=== PATIENT | female | born 1950 | race Caucasian/White ===

== ENCOUNTER 2018-07-09 12:02 | Inpatient (IN) ==
[2018-07-09] MEDS ORDERED: ALBUTEROL NEB INH ONE (12:43)
[2018-07-09] MEDS ORDERED: SOLU-MEDROL IV ONE (12:44)
--- NOTE | 2018-07-09 12:49 | EKG Report ---
Test Performed on : 07/09/2018 12:21:09 PM Test Reason : sob Blood Pressure : / mmHG Vent. Rate : 107 BPM Atrial Rate : 107 BPM P-R Int : 158 ms QRS Dur : 086 ms QT Int : 372 ms P-R-T Axes : 075 059 046 degrees QTc Int : 496 ms Sinus tachycardia. Nonspecific ST abnormality Abnormal ECG When compared with ECG of 17-MAR-2018 10:53, premature ventricular complexes. are no longer present Unconfirmed Result
--- NOTE | 2018-07-09 12:52 | Diag Imaging Result Doc PS360 ---
EXAM: CHEST-1 VIEW 07/09/2018 HISTORY: fever, sputum TECHNIQUE: AP portable upright at 1243 COMMENT: There is slightly worsened lingular atelectasis compared to 03/19/2018. Otherwise there has been no significant change. IMPRESSION: Lingular atelectasis versus pneumonia. Electronically signed by Miller De Oliveira 07/09/2018 12:49 PM
[2018-07-09 13:22] LABS: BASO# 0.01 X1000 (0.0-0.2); BASO% 0.1 % (0.0-0.8); EOS# 0.32 X1000 (0.0-0.7); EOS% 2.3 % (0.0-10.0); HEMOGLOBIN 11.6 g/dL (12.0-16.0); IMM GRAN# 0.03 X1000 (0.0-0.04); IMM GRAN% 0.2 % (0.0-0.5); LYMPH# 1.26 X1000 (1.2-3.4); MCH 26.3 PG (27-31); MCHC 30.5 g/dL (33-37); MCV 86.2 FL (81-99); MONO# 1.34 X1000 (0.11-0.59); MONO% 9.6 % (1.7-9.3); MPV 11.1 FL (7.4-10.4); NEUT# 11.05 X1000 (1.4-6.5); NEUT% 78.8 % (42.2-75.2); PLT 215 X1000 (130-400); RBC 4.41 XMIL (4.2-5.4); RDW 15.4 % (11.5-14.5); WBC 14.01 X1000 (4.8-10.8)
[2018-07-09 13:33] LABS: AGAP 13; ALB/GLOB RATIO 1.4; ALBUMIN 3.7 g/dL (3.5-5.0); ALKALINE PHOSPHATASE 87 U/L (32-104); BUN 10 mg/dL (8-22); CALCIUM 9.1 mg/dL (8.8-10.2); CHLORIDE 96 mmol/L (98-107); COSMO 273; CREATININE 0.7 mg/dL (0.5-0.9); ESTIMATED GFR > 60; GLUCOSE 133 mg/dL (70-104); GOT 12 U/L (10-30); GPT 10 U/L (10-36); POTASSIUM 4.3 mmol/L (3.5-5.1); SODIUM 136 mmol/L (136-145); TCO2 27 mmol/L (25-35); TOTAL BILIRUBIN 0.43 mg/dL (0.20-1.00); TOTAL PROTEIN 6.4 g/dL (6.3-8.3)
[2018-07-09] MEDS ORDERED: ZITHROMAX PO ONE (15:46)
--- NOTE | 2018-07-09 15:51 | PROVIDER DOCUMENTATION ---
This chart was entered by Inocencio Hurst Scribe, acting as scribe for Chris Merino MD. HPI-Respiratory General - General Chief Complaint: Shortness of Breath Stated Complaint: SOB,COUGHING,CONGESTED,SNEEZING Time Seen by Provider: 07/09/18 12:32 Source: patient Allergies/Adverse Reactions: Patient Allergies Allergy/AdvReac Type Severity Reaction Status Date / Time amoxicillin [Amoxicillin] Allergy Severe CHEST Verified 03/17/18 12:14 PAIN, REDNESS, RASH Home Medications: Home Medication List Medication Instructions Recorded Confirmed Last Taken Type Lisinopril 20 mg PO DAILY 09/27/13 03/17/18 03/17/18 History Doxepin HCl 100 mg PO HS 04/02/16 03/17/18 03/17/18 History Citalopram [Celexa] 20 mg PO DAILY 04/19/17 03/17/18 03/17/18 History Insulin Degludec [Tresiba 200 units ORDERED ORDERED 04/19/17 03/17/18 03/17/18 History Flextouch U-200] Montelukast [Singulair] 10 mg PO DAILY 04/19/17 03/17/18 03/17/18 History ROSUVAstatin [Crestor] 20 mg PO DAILY 04/19/17 03/17/18 03/17/18 History Sitagliptin [Januvia] 100 mg PO DAILY 04/19/17 03/17/18 03/17/18 History Doxycycline 100 mg PO DAILY #14 tab 03/19/18 Unknown Rx Fluticasone/Salmeterol [Advair 1 ea IH BID #1 disk.w.dev 03/19/18 Unknown Rx 250-50 Diskus] Ipratropium/Albuterol INH 1 puff INH RTQ6H PRN #1 inhaler 03/19/18 Unknown Rx [Combivent Respimat Inhaler] Levofloxacin [Levaquin] 500 mg PO DAILY #7 tab 03/19/18 Unknown Rx Prednisone [Deltasone] 20 mg PO DAILY #7 tab 03/19/18 Unknown Rx Azithromycin 250 mg PO DAILY #4 tab 07/09/18 Unknown Rx Methylprednisolone [Medrol Dosepak] 4 mg PO DIRECTED #1 pkg 07/09/18 Unknown Rx - History of Present Illness-Resp Nature of Presenting Problem: Pt is a 89 y/o F presents to the ED with SOB. Pt reports increased labor of breathing that began 2 days ago. She denies fever. Severity in ED: reports: severe Onset/Duration: reports: 2 days ago Timing: reports: still present Cough Quality/Degree: reports: no cough Current Respiratory Medication Therapy: Initiated albuterol/atrovent inhale, Initiated A/A nebulizer Modifying Factors: improves with: nothing Associated Symptoms: reports: shortness of breath, wheezing. denies: cough, dizziness, fever/chills Similar Symptoms Previously?: No Recently seen or treated by another doctor?: No Review of Systems - Adult - REVIEW OF SYSTEMS - ADULT Constitutional: denies: chills, fever Eyes: reports: no symptoms reported Ears, Nose, Mouth & Throat: reports: no symptoms reported Cardiovascular: denies: chest pain, edema Respiratory: reports: shortness of breath, wheezing. denies: cough Gastrointestinal: denies: abdominal pain, nausea, vomiting Genitourinary: reports: no symptoms reported Musculoskeletal: denies: back pain, neck pain Integumentary: reports: no symptoms reported Neurological: reports: no symptoms reported Psychiatric: reports: no symptoms reported Endocrine: reports: no symptoms reported Hematologic/Lymphatic: reports: no symptoms reported Allergic/Immunologic: reports: no symptoms reported All Other Systems: Reviewed and Negative Past History - Adult - PAST MEDICAL HISTORY-ADULT Review of Records: reports: Old Records Reviewed, Nursing Assessment Review, Medications Reviewed Major Childhood Illnesses: reports: denies history Cardiovascular: reports: HTN Respiratory: reports: asthma, COPD, pneumonia (last PNA with admission was 5 years ago) Gastrointestinal: reports: denies history Obstetrical/Gynecological: reports: denies history Genitourinary: reports: denies history, kidney disease Musculoskeletal: reports: denies history Neurological: reports: denies history Psychiatric: reports: anxiety Endocrine/Immune: reports: denies history Other Conditions: reports: denies history - PRIOR SURGERIES/PROCEDURES Surgical/Procedure History: reports: appendectomy, hysterectomy, BTL, orthopedic (extremity) (R hand), other (bladder sling, breast) - IMMUNIZATION STATUS Childhood Immunizations: See Nurse Assessment Flu Vaccine: See Nurse Assessment - FAMILY HISTORY Family History: reviewed, not pertinent - SOCIAL HISTORY Smoking: non-smoker, quit greater than 1 year Living Situation: family Physical Exam-General - PHYSICAL EXAM-ADULT Initial Vital Signs Reviewed: Yes - CONSTITUTIONAL General Appearance: alert, no apparent distress, mild distress - EYES Eyes: PERRL/EOMI, pink conjunctivae - HEAD, EARS, NOSE, MOUTH & THROAT HENMT: moist mucous membranes, normal ENT inspection, pharynx normal - NECK Neck: non-tender, full range of motion, supple, normal inspection - RESPIRATORY Respiratory: lungs clear, no pleuratic chest pain, no respiratory distress, no accessory muscle use, wheezing (faint). negative: normal breath sounds (distant breath sounds) - CARDIOVASCULAR Cardiovascular: normal peripheral pulses, tachycardia - GASTROINTESTINAL (ABDOMEN) Abdominal Exam: normal bowel sounds, non tender, soft - MUSCULOSKELETAL Back Exam: normal inspection, no CVA tenderness, no vertebral tenderness Extremity: normal range of motion, normal gait, normal inspection - SKIN Integumentary: normal color, normal turgor, warm/dry - PSYCHIATRIC Psych/Mental Status: normal mood/affect, normal thought content, normal thought process, oriented x 3 Progress - PLAN OF CARE/RESULTS Progress/Plan/Lab Results: Vital Signs - 8 hr 07/09/18 12:17 07/09/18 12:30 07/09/18 13:10 Temperature 100.5 F H Pulse Rate 109 H 110 H 106 H Respiratory Rate 18 22 21 Blood Pressure 147/88 198/95 O2 Sat by Pulse Oximetry 89 L 95 92 L 07/09/18 13:20 07/09/18 13:25 07/09/18 13:30 Temperature Pulse Rate 105 H 106 H 104 H Respiratory Rate 22 14 21 Blood Pressure O2 Sat by Pulse Oximetry 94 L 94 L 96 07/09/18 12:45 Influenza Screen - Final Nasopharyngeal Laboratory Results - last 24 hr 07/09/18 07/09/18 12:46 12:46 WBC 14.01 H RBC 4.41 Hgb 11.6 L Hct 38.0 MCV 86.2 MCH 26.3 L MCHC 30.5 L RDW Std Deviation 15.4 H Plt Count 215 MPV 11.1 H Immature Gran % (Auto) 0.2 Neut % (Auto) 78.8 H Lymph % (Auto) 9.0 L Grimes % (Auto) 9.6 H Eos % (Auto) 2.3 Baso % (Auto) 0.1 Immature Gran # (Auto) 0.03 Neut # (Auto) 11.05 H Lymph # (Auto) 1.26 Grimes # (Auto) 1.34 H Eos # (Auto) 0.32 Baso # (Auto) 0.01 Sodium 136 Potassium 4.3 Chloride 96 L Carbon Dioxide 27 Anion Gap 13 BUN 10 Creatinine 0.7 Estimated GFR/1.73 m2 > 60 BUN/Creatinine Ratio 14 Glucose 133 H Calculated Osmolality 273 Calcium 9.1 Total Bilirubin 0.43 AST 12 ALT 10 Alkaline Phosphatase 87 Total Protein 6.4 Albumin 3.7 Globulin 2.7 Albumin/Globulin Ratio 1.4 Orders Category Date Time Status CHEST-1 VIEW [RAD] Stat Exams 07/09/18 12:33 Completed CBC WITH DIFF [HEME] Stat Lab 07/09/18 12:46 Completed COMPREHENSIVE METABOLIC PANEL [CHEM] Stat Lab 07/09/18 12:46 Completed INFLUENZA SCREEN A/B Stat Lab 07/09/18 12:45 Completed Albuterol [Albuterol Neb] Med 07/09/18 12:43 Discontinued 2.5 mg INH NOW ONE Azithromycin [Zithromax] Med 07/09/18 15:46 Once 500 mg PO NOW ONE Methylprednisolone Sod Succ [Solu-Medrol] Med 07/09/18 12:44 Discontinued 125 mg IV NOW ONE Aerosol Treatments Routine Oth 07/09/18 12:44 Completed Aerosol Treatments Stat Oth 07/09/18 12:44 Completed EKG [EKG] Stat Ther 07/09/18 12:19 Draft Result Diagrams: 07/09/18 12:46 07/09/18 12:46 - REASSESSMENT Reassessment #2 Time Reassessed: 15:46 Status: improving (pt reports feeling much better, declines offer of admission. I turned off her 02, and 25 min. later her 02 was stable (at rest) at 90-92%. She wants to go home: I will Rx Azith given fever and COPD, medrol margie; pt to fu with PCP or return as needed.) - EKG 1 Time of EKG reading by physician:: 12:21 EKG Read and Signed by:: Chris Merino EKG Interpretation (*Must complete 3 of following elements*): Abnormal Rate: 107 Rhythm: Sinus Tach Comments: Nonspecific ST abnormality - XRAY 1 XRAY Study: Chest Impression: Abnormal (EXAM: CHEST-1 VIEW 07/09/2018 HISTORY: fever, sputum TECHNIQUE: AP portable upright at 1243 COMMENT: There is slightly worsened lingular atelectasis compared to 03/19/2018. Otherwise there has been no significant change. IMPRESSION: Lingular atelectasis versus pneumonia. Electronically signed by Miller De Oliveira 07/09/2018 12:49 PM 07/09/18 1249), See EMR Report Comparison with other Films: changes noted (03/19/18) Departure - Departure Date of Disposition Decision: 07/09/18 Time of Disposition Decision: 15:49 DIAGNOSIS: Chronic obstructive pulmonary disease with hypoxia, Fever Disposition: HOME 01 Certified Medical Emergency: Emergent Condition: Stable Prescriptions: Azithromycin 250 mg PO DAILY #4 tab Methylprednisolone [Medrol Dosepak] 4 mg PO DIRECTED #1 pkg Referrals and Follow-Ups: Owen Garner DO [Primary Care Provider] - - Critical Care Note This patient required my direct & personal management of CC.: No Attestation - Physician/ RYDER Attestation The physician spent face to face time with patient:: Yes Advanced Practice Provider documentation review:: Supervising physician onsite and consulted in the evaluation and care of this patient. The physician did have a face to face encounter with the patient. This chart was documented by the indicated scribe, (Inocencio Hurst Scribe) and accurately reflects the services I performed and decisions made by me, Chris Caicedo MD, as attested by the provider's signature.
[2018-07-09] MEDS ORDERED: TYLENOL PO PRN ×2 (16:23→16:41)
[2018-07-09] MEDS ORDERED: DUONEB (A & A) INH PRN (16:25)
[2018-07-09] MEDS ORDERED: LABETALOL IV PRN (16:35)
[2018-07-09 16:55] LABS: ALLEN TEST NO; BE 2.6 mmoll (-3.0-3.0); BLOOD TYPE ARTERIAL; HCO3-(ACT) 26.9 mmoll (20.0-26.0); METHB 0.5 % (0.0-1.5); O2(CT) 16.2 mL/dL (15.0-23.0); O2HB 95.6 % (95.0-99.0); PCO2(98.6) 41 mmHg (35-45); PO2(98.6) 134 mmHg (60-100); SAMPLE BLOOD; SAO2 98.7 % (95.0-100.0); THB 11.9 g/dL (11.5-17.4); pH(98.6) 7.43 (7.35-7.45)
[2018-07-09 16:56] LABS: MODALITY CANNULA
[2018-07-09] MEDS ORDERED: ZITHROMAX 500 MG/NS 500 MG/250 ML IVPB IV SCH (17:00)
[2018-07-09] MEDS ORDERED: APRESOLINE IV PRN (17:11)
[2018-07-09 17:12] LABS: HEMOGLOBIN A1C 6.3 % (4.8-6.0)
[2018-07-09 17:27] LABS: FREE T4 0.95 ng/dL (0.93-1.70); TSH 1.83 uIUmL (0.27-4.20)
--- NOTE | 2018-07-09 17:47 | HISTORY AND PHYSICAL ---
PRIMARY CARE PHYSICIAN: Owen Garner DO. CHIEF COMPLAINT: Dyspnea. HISTORY OF PRESENT ILLNESS: Ms. Deng is a 67-year-old female with a history of COPD, diabetes mellitus and hypertension who presents to the ER with 5 days of progressive dyspnea, acutely worse today. She has been having worsening cough and shortness of breath, worse with exertion, over the past week and had a low-grade fever yesterday and today. This became acutely worse today, and she decided to come to the ER for evaluation. She also reports a midsternal burning and has had midsternal chest pain with exertion, and also complains of occasional lower extremity edema and some orthopnea. She has also been having some right lower extremity edema and is currently being evaluated for a DVT on an outpatient basis, and is scheduled for a venous Doppler of the right leg tomorrow. In the ER today she had a chest x-ray done which did show lingular atelectasis versus pneumonia. She has a white count of 14,000 and marginal O2 saturations on room air with exertion, and a fever of 100.9. Given the above, she is going to be admitted for further treatment and evaluation. PAST MEDICAL HISTORY: 1. COPD not requiring oxygen. 2. Type 2 diabetes. 3. Hypertension. 4. Hyperlipidemia. 5. Morbid obesity. 6. Anxiety and depression. PAST SURGICAL HISTORY: Appendectomy, hysterectomy, tubal ligation, bladder sling, ORIF right hand, left breast cyst removal. SOCIAL HISTORY: She quit smoking 9 years ago. Denies current tobacco, alcohol or drug use. She is . Son is at the bedside. FAMILY HISTORY: Father with prostate cancer, mother from vehicle accident. REVIEW OF SYSTEMS: A 14-point review of systems is obtained and found to be negative with the exception of the HPI. ALLERGIES: Amoxicillin. HOME MEDICATIONS: Yet to be compiled. She did not bring her list with her. PHYSICAL EXAMINATION: VITAL SIGNS: Blood pressure 147/88, heart rate 109, respiratory rate 18, O2 saturation 89% on room air, temperature 100.5. GENERAL: This is an obese female lying in the hospital bed in no acute distress. NEUROLOGIC: She is awake, alert and oriented. Follows commands. No focal deficits. HEENT: Head is atraumatic and normocephalic. Pupils are equal, round, and reactive to light. Oral mucosa is a bit dry. Trachea is midline. There is no JVD. CHEST: Diminished with very minimal expiratory wheezes. CV: Slightly tachycardic, but regular S1 and S2 noted. No appreciable murmurs. GI: Soft, nondistended, nontender. Bowel sounds are active. EXTREMITIES: Trace edema in the right leg. No edema in the left leg. Pulses 1+ bilaterally. There is no cyanosis or clubbing. DIAGNOSTIC DATA: WBCs 14.01, hemoglobin 11.6, hematocrit 38.6, platelet count 215. Sodium is 136, potassium 4.3, chloride 96. CO2 is 27, anion gap 13, BUN 10, creatinine 0.7, glucose 133. LFTs negative. Albumin 3.7. Chest x-ray shows lingular atelectasis pneumonia. EKG shows sinus tachycardia with nonspecific T- wave changes. ASSESSMENT/PLAN: 1. Acute hypoxemic respiratory failure, likely secondary to a combination of COPD and early pneumonia: Continue oxygen, breathing treatments and aggressive pulmonary toilet. Check echocardiogram. Check cardiac enzymes and follow telemetry, and check a chest x-ray in the morning. 2. Chronic obstructive pulmonary disease exacerbation as above: Add steroids. Continue pulmonary hygiene and check a chest x-ray in the morning. 3. Community-acquired pneumonia: As above, continue antibiotics, breathing treatments, aggressive pulmonary toilet. Blood cultures and sputum cultures have been ordered as well. 4. Dyspnea and chest pain on exertion: Certainly concerning for coronary disease; however, she does have likely significant COPD, so we will monitor closely on telemetry, check cardiac enzymes. 5. Right lower extremity pain and swelling: We have ordered a right lower extremity venous Doppler ultrasound to evaluate for deep venous thrombosis, as this was scheduled for tomorrow regardless. We will follow up on this and treat accordingly. 6. Hypertension: Reconcile home medications once they have added to the computer. Will add IV if necessary. 7. Hyperlipidemia. Check a lipid panel and continue any medications she is on at home. 8. Diabetes mellitus: Pattern sugars, sliding-scale insulin. Check hemoglobin A1c. 9. Deep venous thrombosis prophylaxis with Lovenox. Further recommendations to follow. Dictated by CAMILLA Dorantes for Kali Wasserman MD cc: CAMILLA Dorantes MD [facility]
--- NOTE | 2018-07-09 17:49 | HISTORY AND PHYSICAL ---
ADDENDUM: Patient seen and examined by me [id number]. All the laboratory, images, and vital signs were reviewed. The patient presented with shortness of breath for the past couple of days. Also, as per the patient, she has been coughing up green phlegm, subjective fever. She denies nausea, vomiting, diarrhea, constipation. She has a history of COPD and the last time she was discharged from this hospital was on 03/19/2018 due to hypoxemic respiratory failure, COPD exacerbation, and pneumonia. Also, this patient has a past medical history of diabetes and hypertension. She is tachycardic. Her temperature at noon was around 100.5. Blood pressure at this moment is elevated at 198/95. She states that she took her lisinopril today. I will add hydralazine as needed to her medications. PHYSICAL EXAMINATION: On my physical exam, this patient has decreased breath sounds bilaterally with some faint end- expiratory wheezing at the bases but she has some crepitus/rhonchi at the level of the left base. It looks like without oxygen she becomes hypoxemic. ASSESSMENT AND PLAN: This patient will be treated for pneumonia, mild chronic obstructive pulmonary disease exacerbation. She will receive breathing treatment, antibiotics, oxygen supplementation. She will be transferred to the floor with telemetry. We will treat her blood pressure which is high and we will monitor her diabetes. Hemoglobin A1c is pending. I agree with the rest of the nurse practitioner's assessment and plan. cc: Kali Wasserman MD
[2018-07-09] MEDS: ROCEPHIN 1 GM in NS 50 ML IV SCH (18:19)
[2018-07-09] MEDS: ASPIRIN PO SCH (18:19)
[2018-07-09] MEDS: LOVENOX SUBQ SCH (18:19)
[2018-07-09] MEDS ORDERED: SOLU-MEDROL IV SCH (21:00)
[2018-07-09] MEDS: DUONEB (A & A) INH SCH (21:25)
[2018-07-09] MEDS: SINEQUAN PO SCH (21:28)
[2018-07-09] MEDS: SOLU-MEDROL IV SCH (21:28)
[2018-07-09] MEDS: HUMULIN R SUBQ SCH (21:28)
[2018-07-09 22:28] LABS: URINE SOURCE CLEAN CATCH
[2018-07-09 22:32] LABS: BILIRUBIN URINE NEGATIVE (NEGATIVE); BLOOD URINE MODERATE (NEGATIVE); COLOR YELLOW; GLUCOSE URINE 300 mg/dL (NEGATIVE); KETONE URINE 20 mg/dL (NEGATIVE); LEUKOCYTES URINE SMALL (NEGATIVE); NITRITE URINE NEGATIVE (NEGATIVE); PH URINE 6.5; PROTEIN URINE 300 mg/dL (NEGATIVE); SP GRAVITY URINE 1.017; TURBIDITY URINE CLEAR (CLEAR); UR EPITHELIAL CELLS >10 /HPF (<10); URINE BACTERIA NEGATIVE /HPF; UROBILINOGEN URINE NORMAL (NORMAL)
--- NOTE | 2018-07-10 00:13 | Extremity Venous Study ---
PROCEDURE NAME: Venous U/S Right Leg - 07/09/2018 SYSTEM USED: [employer] Vivid E9 ultrasound System with a 9 L-D transducer. REFERRING PHYSICIAN: Dr. Merino, Emergency Department. IDENTIFICATION: A 67-year-old female. 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 INDICATIONS: Pain and edema right lower extremity suggestive of deep venous thrombosis. FINDINGS: The right common femoral vein and its branches, deep and superficial femoral veins were satisfactorily imaged. They had flow through them and were compressible. Right popliteal vein and the deep veins below the right knee were all compressible and had flow through them. The superficial veins of the right lower extremity were compressible throughout their length. INTERPRETATION: No evidence of acute deep or superficial venous thrombosis of the right lower extremity. cc: MD Shoaib Rose CRNP
[2018-07-10] MEDS: DUONEB (A & A) INH SCH ×4 (03:13→19:33)
[2018-07-10] MEDS: HUMULIN R SUBQ SCH ×4 (06:29→22:16)
[2018-07-10] MEDS: PRILOSEC PO SCH (06:29)
--- NOTE | 2018-07-10 09:01 | Diag Imaging Result Doc PS360 ---
CHEST-2 VIEWS - 07/10/2018 INDICATION: PNA eval COMPARISON: 07/09/2018 FINDINGS: Stable cardiomegaly and mild pulmonary vascular congestion. Stable patchy infiltrates in the lung bases bilaterally. No new infiltrates. No pneumothorax or significant pleural effusion. IMPRESSION: No change from prior. Electronically signed by Sony Finn 07/10/2018 8:58 AM
[2018-07-10 09:25] LABS: AGAP 16; BUN 22 mg/dL (8-22); CALCIUM 9.7 mg/dL (8.8-10.2); CHLORIDE 101 mmol/L (98-107); COSMO 294; CREATININE 0.8 mg/dL (0.5-0.9); ESTIMATED GFR > 60; GLUCOSE 232 mg/dL (70-104); POTASSIUM 4.2 mmol/L (3.5-5.1); SODIUM 142 mmol/L (136-145); TCO2 25 mmol/L (25-35)
[2018-07-10] MEDS: ASPIRIN PO SCH (09:53)
[2018-07-10] MEDS: PRINIVIL PO SCH (09:53)
[2018-07-10] MEDS: SOLU-MEDROL IV SCH (09:53)
[2018-07-10 10:49] LABS: BASO# 0.01 X1000 (0.0-0.2); BASO% 0.1 % (0.0-0.8); HEMATOCRIT 35.6 % (37.0-47.0); HEMOGLOBIN 10.9 g/dL (12.0-16.0); IMM GRAN# 0.02 X1000 (0.0-0.04); IMM GRAN% 0.2 % (0.0-0.5); LYMPH# 0.85 X1000 (1.2-3.4); LYMPH% 7.3 % (20.5-51.1); MCH 26.4 PG (27-31); MCHC 30.6 g/dL (33-37); MCV 86.2 FL (81-99); MONO# 0.42 X1000 (0.11-0.59); MONO% 3.6 % (1.7-9.3); MPV 11.1 FL (7.4-10.4); NEUT% 88.8 % (42.2-75.2); PLT 258 X1000 (130-400); RBC 4.13 XMIL (4.2-5.4); RDW 15.4 % (11.5-14.5)
[2018-07-10 11:14] LABS: LYMPHS 10 % (21-51); SEGS 90 % (42-75)
[2018-07-10] MEDS: VITAMIN B-12 PO SCH (11:41)
--- NOTE | 2018-07-10 11:56 | PROGRESS NOTE ---
DATE: 07/10/2018 SUBJECTIVE: This patient is feeling better today. She is still complaining of some shortness of breath but compared with yesterday, she seems to be doing a whole lot better. I will stop the steroids since she is not having any wheezing today. I will continue breathing treatments, antibiotics, and hopefully tomorrow, if the patient is fine, I will discharge this patient home. OBJECTIVE: Vital Signs: Temperature 98 degrees, pulse 86, respiratory rate 16, blood pressure 130/75, oxygen saturation 92 on room air. HEENT: Head normocephalic. No trauma. PERRLA. Neck: Supple. No JVD. No masses. Central trachea. Chest: Decreased breath sounds globally with prolonged expiratory phase. Crepitus at the level of the left lower base. Abdomen: Soft, nontender, nondistended. No hepatosplenomegaly. Extremities: No edema. No clubbing. No cyanosis. Neurological Examination: The patient is alert and oriented x3. No focal deficits. Laboratory: WBC 11.6, hemoglobin 10.9, hematocrit 35.6, platelets 258,000. Sodium 142, potassium 4.2, chloride 101, bicarbonate 25, BUN 22, creatinine 0.8, glucose 232, calcium 9.7, magnesium 2.2. Hemoglobin A1c 6.3. ASSESSMENT AND PLAN: 1. Acute hypoxemic respiratory failure, likely secondary to pneumonia and chronic obstructive pulmonary disease. Continue with the same management. I will stop the steroids since she is not having any more wheezing. Continue with antibiotics, breathing treatments, and oxygen supplementation. 2. Chronic obstructive pulmonary disease with mild exacerbation, as above. 3. Community-acquired pneumonia. Continue with antibiotics, breathing treatments, and pulmonary toilet. 4. Right lower extremity pain and swelling. We have ordered a right lower extremity venous Doppler ultrasound but today, she feels much better. We continue with Lovenox 40 mg daily for deep venous thrombosis prophylaxis. There is no evidence of acute or subacute deep or superficial venous thrombosis of the right lower extremity. 5. Hypertension. Continue with the same management. 6. Hyperlipidemia. Continue with the same treatment. 7. Type 2 diabetes, hemoglobin A1c 6.3. Continue with pattern of blood sugar and sliding scale insulin. The blood sugar is elevated due to steroid use. 8. Deep vein thrombosis prophylaxis with Lovenox. 9. Vitamin B12 deficiency. I will start replacing it. cc: Kali Wasserman MD
[2018-07-10] MEDS ORDERED: ZITHROMAX 500 MG/NS 500 MG/250 ML IVPB IV SCH (16:00)
[2018-07-10] MEDS: ROCEPHIN 1 GM in NS 50 ML IV SCH (17:16)
[2018-07-10] MEDS: LOVENOX SUBQ SCH (17:17)
[2018-07-10] MEDS: SINEQUAN PO SCH (22:18)
[2018-07-10] MEDS: MUCINEX PO SCH (22:23)
[2018-07-11] MEDS: DUONEB (A & A) INH SCH ×2 (04:48→10:00)
[2018-07-11] MEDS: HUMULIN R SUBQ SCH ×2 (06:04→10:36)
[2018-07-11] MEDS: PRILOSEC PO SCH (06:04)
[2018-07-11 07:07] LABS: BASO# 0.01 X1000 (0.0-0.2); BASO% 0.1 % (0.0-0.8); HEMATOCRIT 36.9 % (37.0-47.0); HEMOGLOBIN 11.2 g/dL (12.0-16.0); IMM GRAN# 0.03 X1000 (0.0-0.04); IMM GRAN% 0.2 % (0.0-0.5); LYMPH# 1.32 X1000 (1.2-3.4); LYMPH% 9.2 % (20.5-51.1); MCH 26.4 PG (27-31); MCHC 30.4 g/dL (33-37); MCV 86.8 FL (81-99); MONO# 1.07 X1000 (0.11-0.59); MONO% 7.5 % (1.7-9.3); MPV 10.7 FL (7.4-10.4); PLT 293 X1000 (130-400); RBC 4.25 XMIL (4.2-5.4); RDW 15.7 % (11.5-14.5); WBC 14.33 X1000 (4.8-10.8)
[2018-07-11 07:27] VITALS: BP 138/75
[2018-07-11 07:39] LABS: AGAP 12; BUN 27 mg/dL (8-22); CALCIUM 9.5 mg/dL (8.8-10.2); CHLORIDE 101 mmol/L (98-107); COSMO 294; CREATININE 0.7 mg/dL (0.5-0.9); ESTIMATED GFR > 60; GLUCOSE 241 mg/dL (70-104); POTASSIUM 4.4 mmol/L (3.5-5.1); SODIUM 141 mmol/L (136-145); TCO2 28 mmol/L (25-35)
[2018-07-11] MEDS: ASPIRIN PO SCH (08:34)
[2018-07-11] MEDS: VITAMIN B-12 PO SCH (08:34)
[2018-07-11] MEDS: PRINIVIL PO SCH (08:34)
[2018-07-11] MEDS: MUCINEX PO SCH (08:34)
--- NOTE | 2018-07-12 14:15 | DISCHARGE SUMMARY ---
ADMISSION DATE: 07/09/2018 DISCHARGE DATE: 07/11/2018 ADMISSION DIAGNOSIS: 1. Acute hypoxemic respiratory failure. 2. Chronic obstructive pulmonary disease. 3. Community-acquired pneumonia. 4. Dyspnea on exertion. 5. Right lower extremity pain and swelling. 6. Hypertension. 7. Hyperlipidemia. 8. Diabetes mellitus. DISCHARGE DIAGNOSIS: 1. Acute hypoxemic respiratory failure. 2. Chronic obstructive pulmonary disease. 3. Community-acquired pneumonia. 4. Dyspnea on exertion. 5. Right lower extremity pain and swelling. 6. Hypertension. 7. Hyperlipidemia. 8. Diabetes mellitus. CONSULTATIONS: None. DIAGNOSTIC PROCEDURES AND FINDINGS: EKG 07/09/2018: Sinus tachycardia, no acute ST or T abnormalities. Chest x-ray 07/09/2018: Lingular atelectasis versus pneumonia. Right lower extremity venous Doppler ultrasound 07/10/2018: No evidence of DVT in the right lower extremity. Chest x-ray 07/10/2018: No change from prior. HOSPITAL COURSE: Mrs. Deng is a 67-year-old female with a history of COPD, diabetes mellitus, and hypertension, who presented with 5 days of progressive dyspnea coupled with low- grade fever 48 hours prior to admission. It became acutely worse and she decided to come to the ER for evaluation. She was found to have a lingular pneumonia and COPD exacerbation. She was admitted for IV antibiotics, breathing treatments, and IV steroids. She improved greatly within 24 hours. She was also complaining of some right lower extremity edema and was actually scheduled for a venous ultrasound by her PCP, so we went ahead and did this inpatient, which was negative for DVT. Yesterday, her symptoms improved and today she is feeling much better, her IV steroids have been stopped, and she is now stable for discharge home. DISCHARGE MEDICATIONS: 1. Lisinopril 20 mg daily. 2. Celexa 20 mg daily. 3. Tresiba FlexTouch as directed. 4. Crestor 20 mg daily. 5. Januvia 100 mg daily. 6. Advair 250/50 1 b.i.d. 7. Combivent Respimat inhaler 1 puff RT q.6 hours as needed. 8. Meloxicam has been stopped. 9. Reglan 10 mg p.o. q.6. 10.Myrbetriq 25 mg daily. 11.Bupropion, which is Wellbutrin XL, 150 mg p.o. daily. 12.Iron sulfate 325 mg p.o. daily. 13.Metformin 500 mg p.o. b.i.d. 14.Doxepin 200 mg p.o. at bedtime. 15.Prescriptions for Mucinex 600 mg p.o. q.12 hours, 14 pills, no refills. 16.Cefdinir 300 mg p.o. b.i.d., 10 capsules, no refills. 17.Prilosec 20 mg p.o. daily, 90 capsules, no refills. 18.Acetaminophen 650 mg p.o. every 6 hours as needed. 19.Zithromax 250 mg p.o. daily, 3 tablets, no refills. 20.Vitamin B12 500 mcg tablet p.o. daily, 30 tablets, no refills. DISCHARGE LAB DATA: WBC 14.33, hemoglobin 11.2, hematocrit 36.9, platelet count 293. Sodium 141, potassium 4.4, chloride 101, CO2 28, anion gap 12, BUN 27, creatinine 0.7, glucose is 209. DISCHARGE DIET: Diabetic. DISCHARGE ACTIVITY: Resume activity as tolerated. DISPOSITION AND OTHER DISCHARGE INSTRUCTIONS: The patient is discharged home to self-care. She is to follow up with Dr. Garner in the next week to 2 weeks or sooner if needed. She is to continue all medications as directed and return to the ER or call 911 for worsening complaints or concerns. All questions answered. DISCHARGE TIME: Greater than 35 minutes. Dictated by CAMILLA Dorantes for Kali Wasserman MD cc: CAMILLA Dorantes MD Thomas E. Lockard, DO
== END 2018-07-11 14:22 | disposition home or self-care (01) | DRG 193 ==
LOC: ED 12:02 → 3N 16:39
PROVIDERS: ATTEND Internal Medicine
CPT/HCPCS: 71010; 71020; 71045; 71046; 80048; 80053; 81001; 82550; 82607; 82805; 82948; 83036; 83605; 83735; 83880; 84439; 84443; 84484; 85025; 87040; 87070; 87077; 87088; 87205; 87275; 87276; 87804; 93005; 93306; 93971; 94640; 94761; 96374; 99285; A9270; J0456; J0696; J1650; J2920; J2930; XXXXX

== ENCOUNTER 2019-03-16 18:19 | Inpatient (IN) ==
[2019-03-16] MEDS ORDERED: DUONEB (A & A) INH ONE (18:33)
--- NOTE | 2019-03-16 18:37 | PROVIDER DOCUMENTATION ---
HPI-Screening - General Chief Complaint: SEPSIS ALERT - D Stated Complaint: PNA SX Time Seen by Provider: 03/16/19 18:21 Source: patient, family (Son) Allergies/Adverse Reactions: Allergies Allergy/AdvReac Type Severity Reaction Status Date / Time amoxicillin [Amoxicillin] Allergy Severe CHEST Verified 03/17/18 12:14 PAIN, REDNESS, RASH Home Medications: Home Medication List Medication Instructions Recorded Confirmed Last Taken Type Lisinopril 20 mg PO DAILY 09/27/13 07/09/18 03/17/18 History Citalopram [Celexa] 20 mg PO DAILY 04/19/17 07/09/18 03/17/18 History Insulin Degludec [Tresiba 200 units ORDERED ORDERED 04/19/17 07/09/18 03/17/18 History Flextouch U-200] ROSUVAstatin [Crestor] 20 mg PO DAILY 04/19/17 07/09/18 03/17/18 History Sitagliptin [Januvia] 100 mg PO DAILY 04/19/17 07/09/18 03/17/18 History Fluticasone/Salmeterol [Advair 1 ea IH BID #1 disk.w.dev 03/19/18 07/09/18 Unknown Rx 250-50 Diskus] Ipratropium/Albuterol INH 1 puff INH RTQ6H PRN #1 inhaler 03/19/18 07/09/18 Unknown Rx [Combivent Respimat Inhaler] Bupropion HCl [Bupropion Xl] 150 mg PO DAILY 07/09/18 07/09/18 Unknown History Doxepin HCl 200 mg PO QHS 07/09/18 07/09/18 Unknown History Ferrous Sulfate 1 tab PO BID 07/09/18 07/09/18 Unknown History Metformin [Glucophage] 1 tab PO BID 07/09/18 07/09/18 Unknown History Metoclopramide [Reglan] 10 mg PO Q6H 07/09/18 07/09/18 Unknown History Mirabegron [Myrbetriq] 25 mg PO DAILY 07/09/18 07/09/18 Unknown History Acetaminophen [Tylenol] 650 mg PO Q6H PRN PRN tab 07/11/18 Unknown Rx Azithromycin [Zithromax] 250 mg PO DAILY #3 tab 07/11/18 Unknown Rx CefDINIR [Omnicef] 300 mg PO BID #10 cap 07/11/18 Unknown Rx Cyanocobalamin [Vitamin B-12] 500 microgm PO DAILY #30 tab 07/11/18 Unknown Rx Guaifenesin E.r. [Mucinex] 600 mg PO Q12HR #14 tab 07/11/18 Unknown Rx Omeprazole [Prilosec] 20 mg PO DAILY@0700 #90 cap 07/11/18 Unknown Rx Patient arrived via EMS?: No HPI: Patient is a 68yo F, accompanied by son, who presents with complaints of SOB, R upper back pain, nausea, and fever (Tmax 103) that began this morning. Patient reports she has COPD and frequently gets PNA. Denies cough, CP, or abdominal pain. Patient audibly wheezing upon exam and has to pause while speaking. Physical Exam-Screening - PHYSICAL EXAM-ADULT Initial Vital Signs Reviewed: Yes - CONSTITUTIONAL General Appearance: alert, moderate distress. negative: lethargic, slow to respond, obtunded - EYES Eyes: PERRL/EOMI, pink conjunctivae. negative: EOM palsy, scleral icterus - HEAD, EARS, NOSE, MOUTH & THROAT HENMT: normocephalic/atraumatic, moist mucous membranes - NECK Neck: full range of motion, supple, normal inspection - RESPIRATORY Respiratory: chest non-tender, no respiratory distress, no accessory muscle use, wheezing (expiratory all lung lee). negative: crackles, rales, rhonchi, retractions, splinting, crepitus - CARDIOVASCULAR Cardiovascular: tachycardia (119) - MUSCULOSKELETAL Extremity: normal range of motion, non-tender - SKIN Integumentary: normal color, warm/dry. negative: cyanosis, mottled, pallor - NEUROLOGIC Neurologic: grossly normal. negative: aphasia, EOM palsy - PSYCHIATRIC Psych/Mental Status: normal mood/affect, normal thought content, normal thought process, oriented x 3 Screening Depart - Departure ED Screening Disposition: Continued in ED for Treatment Referrals and Follow-Ups: Owen Garner DO [Primary Care Provider] - Attestation - Physician/ RYDER Attestation Patient care was provided by Advanced Practice Provider:: Yes Advanced Practice Provider:: Afia Short Advanced Practice Provider documentation review:: The Mid-level provider documentation, treatment plan and medical decision making was reviewed by the physician who agrees with all treatment and medical decision making by the MLP. The physician spent face to face time with patient:: No Advanced Practice Provider documentation review:: Supervising physician onsite and consulted in the evaluation and care of this patient. The physician did not have a face to face encounter with the patient.
[2019-03-16 19:24] LABS: BASO# 0.03 X1000 (0.0-0.2); BASO% 0.1 % (0.0-0.8); EOS# 0.03 X1000 (0.0-0.7); EOS% 0.1 % (0.0-10.0); HEMATOCRIT 38.4 % (37.0-47.0); HEMOGLOBIN 12.1 g/dL (12.0-16.0); IMM GRAN# 0.13 X1000 (0.0-0.04); IMM GRAN% 0.6 % (0.0-0.5); LYMPH# 0.72 X1000 (1.2-3.4); LYMPH% 3.2 % (20.5-51.1); MCHC 31.5 g/dL (33-37); MCV 82.6 FL (81-99); MONO# 2.14 X1000 (0.11-0.59); MONO% 9.5 % (1.7-9.3); MPV 11.5 FL (7.4-10.4); NEUT# 19.48 X1000 (1.4-6.5); NEUT% 86.5 % (42.2-75.2); PLT 172 X1000 (130-400); RBC 4.65 XMIL (4.2-5.4); RDW 15.6 % (11.5-14.5); WBC 22.53 X1000 (4.8-10.8)
[2019-03-16] MEDS ORDERED: NS 1,000 ML IV ONE (19:24)
[2019-03-16] MEDS ORDERED: ZOFRAN IV ONE (19:24)
[2019-03-16] MEDS ORDERED: MORPHINE IV ONE (19:25)
[2019-03-16 19:29] LABS: INR 1.21; PROTIME 15.5 Seconds (11.0-16.0)
[2019-03-16 19:30] LABS: PTT 23.8 Seconds (22.3-41.8)
[2019-03-16 19:46] LABS: AGAP 19; ALB/GLOB RATIO 1.8; ALBUMIN 4.2 g/dL (3.5-5.0); ALKALINE PHOSPHATASE 85 U/L (32-104); BUN 15 mg/dL (8-22); CALCIUM 9.2 mg/dL (8.8-10.2); CHLORIDE 94 mmol/L (98-107); CK PROFILE 70 U/L (24-173); COSMO 281; CREATININE 0.8 mg/dL (0.5-0.9); ESTIMATED GFR > 60; GLUCOSE 240 mg/dL (70-104); GOT 15 U/L (10-30); GPT 12 U/L (10-36); POTASSIUM 3.6 mmol/L (3.5-5.1); SODIUM 136 mmol/L (136-145); TCO2 23 mmol/L (25-35); TOTAL PROTEIN 6.5 g/dL (6.3-8.3)
--- NOTE | 2019-03-16 19:58 | Diag Imaging Result Doc PS360 ---
CHEST-2 VIEWS - 03/16/2019 INDICATION: SOB COMPARISON: 07/10/2018 FINDINGS: There is a large rounded opacity in the superior segment of the right lower lobe. There is significant scarring in the lingula. No pneumothorax or pleural effusion. Heart size is normal. IMPRESSION: Large rounded infiltrate or opacity in the right lower lobe. Correlate for pneumonia. Recommend treatment and follow-up imaging until clear. Electronically signed by Sony Finn 03/16/2019 7:56 PM
[2019-03-16] MEDS ORDERED: LEVAQUIN 750 MG/D5W 750 MG/150 ML IVPB IV ONE (20:07)
--- NOTE | 2019-03-16 20:20 | PROVIDER DOCUMENTATION ---
This chart was entered by Bhargavi Puri Scribe, acting as scribe for Christiano Tavares MD. HPI-General Adult - General Chief Complaint: SEPSIS ALERT - D Stated Complaint: PNA SX Time Seen by Provider: 03/16/19 18:21 Source: patient Allergies/Adverse Reactions: Patient Allergies Allergy/AdvReac Type Severity Reaction Status Date / Time amoxicillin [Amoxicillin] Allergy Severe CHEST Verified 03/17/18 12:14 PAIN, REDNESS, RASH Home Medications: Home Medication List Medication Instructions Recorded Confirmed Last Taken Type Lisinopril 20 mg PO DAILY 09/27/13 07/09/18 03/17/18 History Citalopram [Celexa] 20 mg PO DAILY 04/19/17 07/09/18 03/17/18 History Insulin Degludec [Tresiba 200 units ORDERED ORDERED 04/19/17 07/09/18 03/17/18 History Flextouch U-200] ROSUVAstatin [Crestor] 20 mg PO DAILY 04/19/17 07/09/18 03/17/18 History Sitagliptin [Januvia] 100 mg PO DAILY 04/19/17 07/09/18 03/17/18 History Fluticasone/Salmeterol [Advair 1 ea IH BID #1 disk.w.dev 03/19/18 07/09/18 Unknown Rx 250-50 Diskus] Ipratropium/Albuterol INH 1 puff INH RTQ6H PRN #1 inhaler 03/19/18 07/09/18 Unknown Rx [Combivent Respimat Inhaler] Bupropion HCl [Bupropion Xl] 150 mg PO DAILY 07/09/18 07/09/18 Unknown History Doxepin HCl 200 mg PO QHS 07/09/18 07/09/18 Unknown History Ferrous Sulfate 1 tab PO BID 07/09/18 07/09/18 Unknown History Metformin [Glucophage] 1 tab PO BID 07/09/18 07/09/18 Unknown History Metoclopramide [Reglan] 10 mg PO Q6H 07/09/18 07/09/18 Unknown History Mirabegron [Myrbetriq] 25 mg PO DAILY 07/09/18 07/09/18 Unknown History Acetaminophen [Tylenol] 650 mg PO Q6H PRN PRN tab 07/11/18 Unknown Rx Azithromycin [Zithromax] 250 mg PO DAILY #3 tab 07/11/18 Unknown Rx CefDINIR [Omnicef] 300 mg PO BID #10 cap 07/11/18 Unknown Rx Cyanocobalamin [Vitamin B-12] 500 microgm PO DAILY #30 tab 07/11/18 Unknown Rx Guaifenesin E.r. [Mucinex] 600 mg PO Q12HR #14 tab 07/11/18 Unknown Rx Omeprazole [Prilosec] 20 mg PO DAILY@0700 #90 cap 07/11/18 Unknown Rx - History of Present Illness -Gen Adult Nature of Presenting Problems: pt is a 68 yowf presenting w/family to er w/cc low rt back pain and pressure starting yest evening, cough, fever of 103 today, vomiting, 1 episode of incontinence, and george. pt believes she has pneumonia. family sts pt has chronic hx of bronchitis and pneumonia. pt took tylneol today. pt denies numbness and tingling. pt can amb w/assistance slowly. Location of Pain/Injury: reports: back (low back rt side) Pain Radiation: reports: no radiation Quality of Pain: reports: pressure Severity: reports: mild Onset/Duration: reports: last night Timing: reports: still present Context/Activities at Onset: reports: none Modifying Factors: improves with: lying down (on rt side worsens back pain) Associated Symptoms: reports: cough, fever/chills, genitourinary problems, vomiting. denies: chest pain, diarrhea Review of Systems - Adult - REVIEW OF SYSTEMS - ADULT Constitutional: reports: see HPI, fever. denies: chills, fatique, night sweats Eyes: reports: no symptoms reported Ears, Nose, Mouth & Throat: reports: no symptoms reported Cardiovascular: reports: no symptoms reported. denies: chest pain Respiratory: reports: see HPI, cough. denies: dyspnea on exertion, shortness of breath, wheezing Gastrointestinal: reports: see HPI, vomiting. denies: hematemesis, diarrhea, nausea Genitourinary: reports: see HPI, incontinence. denies: flank pain, urinary retention, urgency Musculoskeletal: reports: see HPI, back pain (rt low back). denies: muscle aches, muscle weakness, neck pain Integumentary: reports: no symptoms reported Neurological: reports: see HPI, headache/migraines. denies: loss of balance, numbness, paresthesia Psychiatric: reports: no symptoms reported Endocrine: reports: no symptoms reported Hematologic/Lymphatic: reports: no symptoms reported Allergic/Immunologic: reports: no symptoms reported All Other Systems: Reviewed and Negative Past History - Adult - PAST MEDICAL HISTORY-ADULT Review of Records: reports: Old Records Reviewed, Nursing Assessment Review, Medications Reviewed, Social history reviewed & non-contributory. Major Childhood Illnesses: reports: denies history Cardiovascular: reports: HTN Respiratory: reports: asthma, bronchitis, COPD, pneumonia (last PNA with admission was 5 years ago) Gastrointestinal: reports: denies history Obstetrical/Gynecological: reports: denies history Genitourinary: reports: kidney disease Musculoskeletal: reports: denies history Neurological: reports: denies history Psychiatric: reports: anxiety Endocrine/Immune: reports: denies history Other Conditions: reports: denies history - PRIOR SURGERIES/PROCEDURES Surgical/Procedure History: reports: appendectomy, hysterectomy, BTL, orthopedic (extremity) (R hand), other (bladder sling, breast) - IMMUNIZATION STATUS Childhood Immunizations: See Nurse Assessment Flu Vaccine: See Nurse Assessment - FAMILY HISTORY Family History: reviewed, not pertinent - SOCIAL HISTORY Smoking: other (former smoker) Substance Use: none/never Physical Exam-General - PHYSICAL EXAM-ADULT Initial Vital Signs Reviewed: Yes - CONSTITUTIONAL General Appearance: alert, mild distress. negative: lethargic, slow to respond, combative - EYES Eyes: PERRL/EOMI, pink conjunctivae - HEAD, EARS, NOSE, MOUTH & THROAT HENMT: normocephalic/atraumatic, moist mucous membranes, normal ENT inspection - NECK Neck: non-tender, full range of motion, supple, normal inspection - RESPIRATORY Respiratory: chest non-tender, lungs clear, normal breath sounds - CARDIOVASCULAR Cardiovascular: normal peripheral pulses, regular rate, rhythm - GASTROINTESTINAL (ABDOMEN) Abdominal Exam: normal bowel sounds, non tender, soft - LYMPHATIC Lymphatic: no adenopathy - MUSCULOSKELETAL Back Exam: no CVA tenderness, no vertebral tenderness, other (pt laying on left side in room due to rt low back pain). negative: normal inspection, ecchymosis, swelling, vertebral tenderness Extremity: normal range of motion, non-tender, normal inspection - SKIN Integumentary: normal color, normal turgor, warm/dry - NEUROLOGIC Neurologic: grossly normal, no motor/sensory deficits - PSYCHIATRIC Psych/Mental Status: normal mood/affect, normal thought content, normal thought process, oriented x 3 Progress - PLAN OF CARE/RESULTS Progress/Plan/Lab Results: Vital Signs - 8 hr 03/16/19 18:24 03/16/19 19:21 Temperature 100.1 F H Pulse Rate 119 H 112 H Respiratory Rate 24 20 Blood Pressure 118/59 O2 Sat by Pulse Oximetry 91 L 94 L Orders Category Date Time Status Cardiac Monitoring DIRECTED Care 03/16/19 18:31 Active IV Insertion ORDERED Care 03/16/19 18:31 Active Notify MD of + Sepsis Screen NOW Care 03/16/19 18:31 Active Notify Physician As Ordered Care 03/16/19 18:31 Active Oxygen Therapy- ED Nursing DIRECTED Care 03/16/19 18:34 Active CHEST-2 VIEWS [RAD] Stat Exams 03/16/19 18:31 Ordered BLOOD CULTURE [BLDCUL] Stat Lab 03/16/19 19:00 Ordered CBC WITH DIFF [HEME] Stat Lab 03/16/19 19:00 Completed CK PROFILE [SP CHEM] Stat Lab 03/16/19 19:00 Received COMPREHENSIVE METABOLIC PANEL [CHEM] Stat Lab 03/16/19 19:00 Received LACTATE, PLASMA [CHEM] Q3H Lab 03/16/19 18:45 Uncollected LACTATE, PLASMA [CHEM] Q3H Lab 03/16/19 21:45 Uncollected LACTATE, PLASMA [CHEM] Q3H Lab 03/17/19 00:45 Uncollected PROTIME WITH INR [COAG] Stat Lab 03/16/19 19:00 Received PTT [COAG] Stat Lab 03/16/19 19:00 Received TROPONIN T Stat Lab 03/16/19 19:00 Received URINALYSIS W/POSS RFLX CULT [URINALYSIS] Stat Lab 03/16/19 18:31 Uncollected Albuterol 2.5MG/Ipratrop 0.5MG [Duoneb (A & A)] Med 03/16/19 18:33 Disco ntinued 3 ml INH NOW ONE Aerosol Treatments Routine Oth 03/16/19 18:33 Completed Aerosol Treatments Stat Oth 03/16/19 18:33 Completed Oxygen Device Stat Oth 03/16/19 18:31 Completed EKG [EKG] Stat Ther 03/16/19 18:31 Ordered Result Diagrams: 03/16/19 19:00 03/16/19 19:00 - EKG 1 Time of EKG reading by physician:: 18:43 EKG Read and Signed by:: Manpreet Rader EKG Interpretation (*Must complete 3 of following elements*): Abnormal Rate: 116 Rhythm: ST [place]: normal QRS: other (low voltage) [place] Interval: normal ST Wave: non-specific ST changes (nonspecific st and t wave abnormality) - XRAY 1 XRAY Study: Chest Impression: Abnormal, See EMR Report (CHEST-2 VIEWS - 03/16/2019 INDICATION: SOB COMPARISON: 07/10/2018 FINDINGS: There is a large rounded opacity in the superior segment of the right lower lobe. There is significant scarring in the lingula. No pneumothorax or pleural effusion. Heart size is normal. IMPRESSION: Large rounded infiltrate or opacity in the right lower lobe. Correlate for pneumonia. Recommend treatment and follow-up imaging until clear. Electronically signed by Sony Finn 03/16/2019 7:56 PM) - CONSULTS/PCP/HOSPITALIST Notification #1 *Consult/PCP/Hospitalist*: Dr. Choudhary Time Discussed: 20:17 Consult Disposition: Admit Departure - Departure Date of Disposition Decision: 03/16/19 Time of Disposition Decision: 20:19 DIAGNOSIS: Pneumonia Qualifiers: Pneumonia type: due to unspecified organism Laterality: right Lung location: lower lobe of lung Qualified Code(s): J18.1 - Lobar pneumonia, unspecified organism Disposition: ADMITTED INPATIENT 09 Certified Medical Emergency: Emergent Condition: Stable Referrals and Follow-Ups: Owen Garner DO [Primary Care Provider] - - Critical Care Note This patient required my direct & personal management of CC.: No Attestation - Physician/ RYDER Attestation Patient care was provided by Advanced Practice Provider:: No The physician spent face to face time with patient:: Yes Advanced Practice Provider documentation review:: Supervising physician onsite and consulted in the evaluation and care of this patient. The physician did have a face to face encounter with the patient. This chart was documented by the indicated scribe, (Bhargavi Puri Scribe) and accurately reflects the services I performed and decisions made by me, Christiano Tavares MD, as attested by the provider's signature.
--- NOTE | 2019-03-16 21:31 | HISTORY AND PHYSICAL ---
HISTORY OF PRESENT ILLNESS: Nicole Deng is a 68-year-old woman with past medical history of type 2 diabetes, hypertension, hyperlipidemia, morbid obesity, COPD, who comes in complaining of a 3 to 4 day history of right-sided mid back pain, mid lateral back pain, and 2 day history of a cough, nonproductive. She also complains of about 2 to 3 day history of progressively worsening shortness of breath. No PND, orthopnea. No other chest pain. She does admit that when she coughs, she feels pain in the said right to lateral posterior part of her chest. No fever, chills. No leg swelling, PND, orthopnea. No upper respiratory symptoms, although she says she was exposed to her daughter who had a cold a few days ago. REVIEW OF SYSTEMS: Only notable for chronic overflow incontinence. Otherwise, 12 system review was done with positive findings per HPI. ALLERGIES: Amoxicillin causes rash. HOME MEDICATIONS: 1. Doxepin 200 mg daily. 2. Wellbutrin 150 mg daily. 3. Celexa 20 mg daily. 4. Ferrous sulfate 325 mg b.i.d. 5. Celexa 20 mg daily as necessary. 6. Doxepin 20 mg at bedtime. 7. Vitamin B12 500 mcg daily. 8. Tresiba 200 mg as ordered. 9. Combivent q.6 p.r.n. 10. Lisinopril 20 mg daily. 11. Metformin 500 mg b.i.d. 12. Myrbetriq 50 mg daily. 13. Singulair 10 mg daily. 14. Crestor 20 mg daily. 15. Januvia 100 mg daily. FAMILY HISTORY: Notable for diabetes. No heart disease. Father of prostate cancer. SOCIAL HISTORY: He stopped smoking 10 years ago. No alcohol use or drug use. Lives alone. SURGICAL HISTORY: Appendectomy, hysterectomy, tubal ligation, bladder sling, ORIF of the right hand, left breast cyst removal. LABORATORY WORK: White count 22,000, hemoglobin and hematocrit 12 and 38, platelets 172,000, with 86 neutrophils. Potassium 3.6, BUN 15, creatinine 0.8, glucose 240. Troponins negative. PTT is normal. Chest film shows a large amount of infiltrate in the right lower lobe. PHYSICAL EXAMINATION: GENERAL: Morbidly obese, elderly woman who is not in acute distress. She is alert and oriented x3. Normal mood and affect. VITAL SIGNS: Blood pressure is 118/59, temperature is 100.1 degrees, heart rate is 112, respiratory rate is 20. She is 94% on 2 L. HEAD: Normocephalic and atraumatic. EYES: PERRLA. EOMI. Anicteric. Not pale. ENT: Grossly normal. No sinus tenderness. NECK: Short and thick. No JVD or carotid bruit. No thyromegaly. CHEST: Decreased entry in the bases with bibasilar crepitations, right greater than left, with scattered expiratory wheezes. CARDIOVASCULAR: First and second heart sounds are heard, but distant. No gallop, murmurs, rubs. Rhythm is regular. ABDOMEN: Protuberant, soft, nontender. Bowel sounds are hypoactive. No mass or organomegaly. RECTAL: Deferred. EXTREMITIES: Patient has good distal pulse volume. No edema. No clubbing or peripheral cyanosis. NEUROLOGICAL: No gross focal deficits. SKIN: Intact. No breakdown, lesion, erythema. MUSCULOSKELETAL: Exam is grossly normal. ASSESSMENT: 1. Right lower lobe pneumonia. 2. Type 2 diabetes, uncontrolled. 3. Hypertension. 4. Hyperlipidemia. 5. Chronic obstructive pulmonary disease. PLAN: Continue treatment with a 5 day course of Levaquin, 2 day course of prednisone, longer short-acting bronchodilators, and continue patient's dose of Tresiba and sliding scale. Antihypertensives are not given if systolic blood pressure is less than 140. This is to avoid acute kidney injury in this patient. cc: Jessica Choudhary MD
[2019-03-16] MEDS ORDERED: PREDNISONE PO SCH (23:01)
[2019-03-16] MEDS ORDERED: SINEQUAN PO SCH (23:01)
[2019-03-17] MEDS: HUMALOG SUBQ SCH ×5 (00:39→20:57)
[2019-03-17] MEDS: NS 1,000 ML IV SCH ×3 (00:40→16:19)
[2019-03-17] MEDS: TYLENOL PO PRN ×4 (00:44→16:24)
[2019-03-17] MEDS: LOVENOX SUBQ SCH (00:44)
[2019-03-17] MEDS: DUONEB (A & A) INH SCH ×5 (01:34→21:31)
[2019-03-17 03:19] LABS: URINE SOURCE CLEAN CATCH
[2019-03-17 03:32] LABS: BILIRUBIN URINE SMALL (NEGATIVE); BLOOD URINE MODERATE (NEGATIVE); COLOR ORANGE; GLUCOSE URINE 200 mg/dL (NEGATIVE); KETONE URINE 10 mg/dL (NEGATIVE); LEUKOCYTES URINE NEGATIVE (NEGATIVE); NITRITE URINE NEGATIVE (NEGATIVE); PH URINE 6.5; PROTEIN URINE 300 mg/dL (NEGATIVE); SP GRAVITY URINE 1.029; TURBIDITY URINE HAZY (CLEAR); UROBILINOGEN URINE 2 mg/dL (NORMAL)
[2019-03-17 03:33] LABS: UR EPITHELIAL CELLS >10 /HPF (<10); URINE BACTERIA NEGATIVE /HPF; URINE WBC 20-40 /HPF (<10)
[2019-03-17 04:01] LABS: URINE CASTS GRANULAR PRESENT; URINE CRYSTALS NONE SEEN; URINE SMALL ROUND CELLS NONE SEEN; URINE YEAST NONE SEEN
--- NOTE | 2019-03-17 04:34 | EKG Report ---
Test Performed on : 03/16/2019 6:43:55 PM Test Reason : SOB Blood Pressure : / mmHG Vent. Rate : 116 BPM Atrial Rate : 116 BPM P-R Int : 150 ms QRS Dur : 072 ms QT Int : 288 ms P-R-T Axes : 066 040 041 degrees QTc Int : 400 ms Sinus tachycardia. Low voltage QRS Nonspecific ST and T wave abnormality Abnormal ECG When compared with ECG of 09-JUL-2018 12:21, No significant change was found Unconfirmed Result
[2019-03-17] MEDS ORDERED: NS 1,000 ML IV ONE ×2 (07:28→08:10)
[2019-03-17] MEDS ORDERED: LEVOPHED 8 MG in D5 1/2 NS 250 ML IV SCH (08:05)
[2019-03-17 08:10] LABS: BASO# 0.01 X1000 (0.0-0.2); HEMATOCRIT 35.1 % (37.0-47.0); HEMOGLOBIN 10.7 g/dL (12.0-16.0); IMM GRAN# 0.36 X1000 (0.0-0.04); IMM GRAN% 1.8 % (0.0-0.5); LYMPH# 0.75 X1000 (1.2-3.4); LYMPH% 3.7 % (20.5-51.1); MCH 25.6 PG (27-31); MCHC 30.5 g/dL (33-37); MONO# 1.27 X1000 (0.11-0.59); MONO% 6.2 % (1.7-9.3); MPV 11.4 FL (7.4-10.4); NEUT# 18.09 X1000 (1.4-6.5); NEUT% 88.3 % (42.2-75.2); PLT 164 X1000 (130-400); RBC 4.18 XMIL (4.2-5.4); RDW 15.9 % (11.5-14.5); WBC 20.48 X1000 (4.8-10.8)
[2019-03-17] MEDS ORDERED: AZACTAM 2 GM in NS 100 ML IV SCH (08:15)
[2019-03-17] MEDS ORDERED: VANCOMYCIN IV PER PHARMACY MISC SCH (08:15)
[2019-03-17] MEDS ORDERED: MERREM 1 GM in NS 50 ML IV SCH (08:15)
[2019-03-17 08:27] LABS: ALB/GLOB RATIO 1.2; ALBUMIN 3.1 g/dL (3.5-5.0); CREATININE 1.4 mg/dL (0.5-0.9); PHOSPHORUS 2.2 mg/dL (2.7-4.5); POTASSIUM 3.8 mmol/L (3.5-5.1); TOTAL BILIRUBIN 0.5 mg/dL (0.20-1.00); TOTAL PROTEIN 5.7 g/dL (6.3-8.3)
[2019-03-17 08:41] LABS: BANDS 21 % (0-1); LYMPHS 2 % (21-51); MONO 2 % (1-9); SEGS 75 % (42-75)
[2019-03-17] MEDS ORDERED: MAGNESIUM SULFATE 2 GM/S.W.I. 2 GM/50 ML IVPB IV ONE (08:59)
[2019-03-17] MEDS ORDERED: PRINIVIL PO SCH (09:00)
[2019-03-17] MEDS ORDERED: WELLBUTRIN XL PO SCH (09:00)
[2019-03-17] MEDS: BROVANA NEB INH SCH ×2 (09:26→19:50)
[2019-03-17] MEDS: PEPCID IV SCH ×2 (09:40→20:57)
[2019-03-17] MEDS: LEVAQUIN 750 MG/D5W 750 MG/150 ML IVPB IV SCH (09:40)
[2019-03-17] MEDS: AZACTAM 2 GM in NS 100 ML IV SCH ×2 (09:41→17:10)
[2019-03-17] MEDS: CELEXA PO SCH (09:41)
[2019-03-17] MEDS: CRESTOR PO SCH (09:41)
[2019-03-17] MEDS: ZYVOX 600 MG/D5W 600 MG/300 ML IVPB IV SCH ×2 (09:41→20:58)
--- NOTE | 2019-03-17 10:51 | PROGRESS NOTE ---
DATE: 03/17/2019 SUBJECTIVE: I received a call from the medical floor. The patient started to have low blood pressure, on top of pneumonia. She has been having fever the whole night. The highest documented is 103.9. She seems to be dehydrated also and low blood pressure, the lowest documented of 56/45. I transferred immediately this patient to the ICU. She will receive 2 more boluses of IV fluids. She already received one. I will put this patient on vasopressors, Levophed. I will add more antibiotics. She has been placed on levofloxacin. I will add aztreonam and vancomycin. I will stop her blood pressure medication, lisinopril. I will provide some gastric protection with Pepcid. She is completely alert, awake, and oriented x3. She does have generalized weakness and, like I said, she seems to be dehydrated. OBJECTIVE: Vital Signs: Temperature 101 degrees, pulse 116, respiratory rate 28, blood pressure 56/45, oxygen saturation 94% on 3 L of nasal cannula. HEENT: Head normocephalic. No trauma. PERRLA. Neck: Supple. No JVD. No masses. Central trachea. Chest: She does have some crepitus and rhonchi at the right base. No wheezing but prolonged expiratory phase. Abdomen: Soft. Some tenderness to palpation at the level of the periumbilical area. Extremities: No edema, no clubbing, no cyanosis. Neurological Examination: The patient is alert and oriented x3. No focal deficits but generalized weakness. Laboratory: WBC 20.4, hemoglobin 10.7, hematocrit 35.1, platelets 264,000. Pending CMP. ASSESSMENT AND PLAN: 1. Septic shock, likely due to right lower lobe pneumonia. I will increase the coverage with antibiotics. I will add aztreonam due to her history of amoxicillin allergy and I will add vancomycin as well. Kidney function from yesterday in the afternoon within normal limits. I will start this patient on vasopressors. She will receive 3 boluses of fluid in total. I will continue with normal saline as well. She looks dehydrated to me. 2. Right lower lobe pneumonia. Continue with antibiotics, per #1. 3. History of chronic obstructive pulmonary disease, not in exacerbation at this moment. Continue breathing treatment, though. 4. History of hypertension. I have discontinued the lisinopril, given her low blood pressure. 5. Type 2 diabetes. As per the patient, she takes treatment at home with Januvia, insulin, and metformin. We will continue with her insulin and also sliding scale insulin, pattern of blood sugar. 6. I do have reported gram-positive cocci in blood, in the recent cultures. I have placed this patient on vancomycin already. 7. Hypomagnesemia. We will replace the magnesium. 8. Hyperlipidemia. This patient is on Crestor at home. I have discussed her resuscitation status with this patient and the whole situation. We did discussed her advanced directive for at least 17 minutes. At the end, she had decided to be Do Not Resuscitate level 1. Critical care time 45 minutes cc: Kali Wasserman MD MTDD
[2019-03-17] MEDS: TRESIBA FLEXTOUCH U-200 SUBQ SCH (12:54)
[2019-03-17 17:06] LABS: URINE SOURCE CATH
[2019-03-17 17:14] LABS: BILIRUBIN URINE NEGATIVE (NEGATIVE); BLOOD URINE MODERATE (NEGATIVE); COLOR YELLOW; GLUCOSE URINE NEGATIVE (NEGATIVE); KETONE URINE TRACE mg/dL (NEGATIVE); LEUKOCYTES URINE NEGATIVE (NEGATIVE); NITRITE URINE NEGATIVE (NEGATIVE); PROTEIN URINE 50 mg/dL (NEGATIVE); SP GRAVITY URINE 1.017; TURBIDITY URINE CLEAR (CLEAR); UROBILINOGEN URINE NORMAL (NORMAL)
[2019-03-17 17:23] LABS: UR EPITHELIAL CELLS <10 /HPF (<10); URINE BACTERIA NEGATIVE /HPF; URINE RBC <10 /HPF (<10); URINE WBC <10 /HPF (<10)
[2019-03-17 17:24] LABS: UR CREAT RANDOM 79.2 mg/dL (11-20); UR PROT RANDOM 38.4 mg/dL
--- NOTE | 2019-03-17 18:45 | Diag Imaging Result Doc PS360 ---
EXAM: US RENAL 2 (RETROPER) COMPLETE INDICATION: david/arf TECHNIQUE: COMPARISON: None. FINDINGS: The kidneys are grossly normal in echotexture with no discrete renal mass or hydronephrosis. The right kidney measures 9.3 cm and the left kidney measures 11.9 cm in the greatest longitudinal axes right renal cortex measures 1 cm and the left renal cortex measures 1.3 cm in thickness. There is a Ribeiro catheter in urinary bladder. Bladder is slightly distended. IMPRESSION: Grossly unremarkable renal ultrasound. Electronically signed by Luke Puri 03/17/2019 6:42 PM
[2019-03-17] MEDS ORDERED: LEVAQUIN 750 MG/D5W 750 MG/150 ML IVPB IV SCH (21:30)
[2019-03-18] MEDS: LOVENOX SUBQ SCH ×2 (00:29→22:23)
[2019-03-18] MEDS: NS 1,000 ML IV SCH (00:29)
[2019-03-18] MEDS: AZACTAM 2 GM in NS 100 ML IV SCH ×3 (01:24→18:22)
[2019-03-18] MEDS: DUONEB (A & A) INH SCH ×5 (03:36→23:45)
[2019-03-18] MEDS: HUMALOG SUBQ SCH ×4 (06:22→20:08)
[2019-03-18 06:58] LABS: ALB/GLOB RATIO 0.9; ALBUMIN 2.9 g/dL (3.5-5.0); CALCIUM 7.7 mg/dL (8.8-10.2); CREATININE 1.1 mg/dL (0.5-0.9); MAGNESIUM 2.1 mg/dL (1.5-2.7); PHOSPHORUS 3.2 mg/dL (2.7-4.5); POTASSIUM 3.9 mmol/L (3.5-5.1); TOTAL BILIRUBIN 0.2 mg/dL (0.20-1.00)
[2019-03-18 07:13] LABS: BASO# 0.01 X1000 (0.0-0.2); BASO% 0.1 % (0.0-0.8); HEMATOCRIT 31.7 % (37.0-47.0); HEMOGLOBIN 9.4 g/dL (12.0-16.0); IMM GRAN# 0.05 X1000 (0.0-0.04); IMM GRAN% 0.3 % (0.0-0.5); LYMPH# 0.68 X1000 (1.2-3.4); LYMPH% 4.1 % (20.5-51.1); MCH 25.3 PG (27-31); MCHC 29.7 g/dL (33-37); MCV 85.4 FL (81-99); MONO% 6.6 % (1.7-9.3); MPV 11.6 FL (7.4-10.4); NEUT% 88.9 % (42.2-75.2); PLT 152 X1000 (130-400); RBC 3.71 XMIL (4.2-5.4); RDW 16.4 % (11.5-14.5); WBC 16.74 X1000 (4.8-10.8)
--- NOTE | 2019-03-18 07:42 | Diag Imaging Result Doc PS360 ---
CHEST-PORTABLE - 03/18/2019 INDICATION: Pneumonia COMPARISON: 03/16/2019 FINDINGS: There is little change in the relatively dense rounded opacification in the right midlung. Lung volumes are lower with central crowding. Heart size remains grossly normal. No large pleural effusion. IMPRESSION: Little change in the dense rounded opacification in the right midlung consistent with pneumonia. Continued follow-up or a chest CT recommended. Electronically signed by Sony Finn 03/18/2019 7:40 AM
[2019-03-18] MEDS ORDERED: NS 1,000 ML IV SCH (07:57)
--- NOTE | 2019-03-18 08:47 | PROGRESS NOTE ---
DATE: 03/18/2019 SUBJECTIVE: This patient seems to be better. No fever today. She is still slightly tachycardic. Blood pressure has been stable without pressors. She is on 2 L of nasal cannula. X-ray did not show significant changes compared with yesterday. I will get a CT scan of the chest without contrast. OBJECTIVE: Vital Signs: Temperature 98.1 degrees, pulse 96, respiratory rate 15, blood pressure 109/72, oxygen saturation 98 on 2 L of nasal cannula. HEENT: Head normocephalic, no trauma. PERRLA. Neck: Supple. No JVD. Central trachea. Chest: Crepitus and rhonchi at the right base. No wheezing, but prolonged expiratory phase. Abdomen: Soft. It seems to be slightly distended, but positive bowel sounds, soft. Extremities: No edema. No clubbing. No cyanosis. Neurological: The patient is alert. She is oriented x3. No focal deficits, but generalized weakness. LABORATORY: WBC 16.7, hemoglobin 9.4, hematocrit 31.7, platelets 152,000. Sodium 136, potassium 3.9, chloride 102, bicarbonate 22, BUN 31, creatinine 1.1, glucose 159, calcium 7.7, phosphorus 3.2. Magnesium 2.1. Albumin 2.9. ASSESSMENT AND PLAN: 1. Septic shock, likely due to right lower lobe pneumonia. This patient is also bacteremic with gram-positive cocci. I will continue with same management for now. I have requested an echocardiogram to rule out vegetations. I will continue with the IV fluids. Kidney function is getting better compared with yesterday. She is tolerating p.o., so I will continue with that. 2. Gram-positive cocci bacteremia, as above. Continue with Zyvox for now due to her acute kidney injury. 3. Right lower lobe pneumonia. Continue with antibiotics per #1. Breathing treatment and oxygen supplementation. 4. History of chronic obstructive pulmonary disease, not in exacerbation at this moment. 5. History of hypertension. I have discontinued the lisinopril given her low blood pressure and septic shock. 6. Type 2 diabetes, stable. Continue with same management. I will get a hemoglobin A1c. 7. Gram-positive cocci bacteremia 2 out of 2. Continue with Zyvox. Vancomycin was discontinued due to acute kidney injury. 8. Hypomagnesemia, resolved. 9. Hyperlipidemia. This patient is on Crestor at home. 10. Acute kidney injury, likely due to septic shock, prerenal, versus acute tubular necrosis, is getting better, continue with IV fluids. 11. Constipation. I am going to start this patient on MiraLAX. CRITICAL CARE TIME: 35 minutes. cc: Kali Wasserman MD
--- NOTE | 2019-03-18 09:40 | Diag Imaging Result Doc PS360 ---
EXAM: CT THORAX W/O CONTRAST 03/18/2019 HISTORY: Pneumonia TECHNIQUE: This exam was performed using automated exposure control, adjustment of mA or kV according to patient size, and/or use of iterative reconstruction technique. COMMENT: There is precarinal adenopathy and right hilar adenopathy. This is slightly worse than on 03/17/2018. The prevascular node which is present on image 36 of the current study measures over 8 mm on the current study compared to almost 12 mm previously. There is extensive coronary calcification. There is a small pericardial effusion which was also present previously. There are small bilateral pleural effusions which were not present previously. There is dense opacification of the right lower lobe including the superior segment. This was not the case on 03/17/2018. There is some opacification and volume loss in the inferior lingula with what appears to be a degree of bronchiectasis. This was also present previously. There is some platelike opacity present in the right upper lobe inferiorly. There is groundglass opacity anterolaterally in the left upper lobe around image 28, this was not present previously. The regional skeleton is stable in appearance. IMPRESSION: Right lower lobe pneumonia. Hilar and mediastinal adenopathy. Follow-up is recommended to ensure resolution of these findings. Electronically signed by Miller De Oliveira 03/18/2019 9:37 AM
[2019-03-18] MEDS: CRESTOR PO SCH (09:53)
[2019-03-18] MEDS: CELEXA PO SCH (09:54)
[2019-03-18] MEDS: SODIUM CHLORIDE 0.9% INJ SCH (09:54)
[2019-03-18] MEDS: PEPCID IV SCH ×2 (09:54→19:52)
[2019-03-18] MEDS: LEVAQUIN 750 MG/D5W 750 MG/150 ML IVPB IV SCH (09:54)
[2019-03-18] MEDS: MIRALAX PO SCH (09:55)
[2019-03-18] MEDS: ZYVOX 600 MG/D5W 600 MG/300 ML IVPB IV SCH ×2 (09:55→20:00)
[2019-03-18] MEDS ORDERED: INSULIN PEN NEEDLES ONE (09:56)
[2019-03-18] MEDS: TRESIBA FLEXTOUCH U-200 SUBQ SCH (09:57)
[2019-03-18] MEDS: BROVANA NEB INH SCH ×2 (10:30→23:45)
[2019-03-18] MEDS: TYLENOL PO PRN (11:26)
--- NOTE | 2019-03-18 15:56 | Diag Imaging Result Doc PS360 ---
EXAM: CHEST-PORTABLE 03/18/2019 HISTORY: CP TECHNIQUE: Upright portable at 1545 COMMENT: There is dense alveolar opacity in the right lower lobe. There is cardiomegaly and ill-defined opacity over the lingula. There is obscuration of the left hemidiaphragm which was not the case at 0555. IMPRESSION: Slightly worsened pulmonary edema versus pneumonia. Electronically signed by Miller De Oliveira 03/18/2019 3:54 PM
--- NOTE | 2019-03-18 15:57 | EKG Report ---
Test Performed on : 03/18/2019 3:54:25 PM Test Reason : Chest pain Blood Pressure : / mmHG Vent. Rate : 129 BPM Atrial Rate : 129 BPM P-R Int : 128 ms QRS Dur : 086 ms QT Int : 322 ms P-R-T Axes : 072 056 041 degrees QTc Int : 471 ms Sinus tachycardia. Low voltage QRS Nonspecific ST abnormality Abnormal ECG No previous ECGs available Confirmed by Hua CEDENO, P.J.M ([id number]) on 03/20/2019 2:54:57 PM
[2019-03-18 16:29] LABS: ALLEN TEST YES; BLOOD TYPE ARTERIAL; MODALITY VENTIMASK; O2(CT) 16.8 mL/dL (15.0-23.0); O2HB 94.6 % (95.0-99.0); PCO2(98.6) 45 mmHg (35-45); PO2(98.6) 85 mmHg (60-100); SAMPLE BLOOD; SAO2 96.5 % (95.0-100.0); THB 12.6 g/dL (11.5-17.4); pH(98.6) 7.29 (7.35-7.45)
[2019-03-18 17:12] LABS: BASO# 0.01 X1000 (0.0-0.2); BASO% 0.1 % (0.0-0.8); EOS# 0.01 X1000 (0.0-0.7); EOS% 0.1 % (0.0-10.0); HEMATOCRIT 30.9 % (37.0-47.0); HEMOGLOBIN 9.5 g/dL (12.0-16.0); IMM GRAN# 0.04 X1000 (0.0-0.04); IMM GRAN% 0.3 % (0.0-0.5); LYMPH# 0.43 X1000 (1.2-3.4); LYMPH% 2.8 % (20.5-51.1); MCH 26.2 PG (27-31); MCHC 30.7 g/dL (33-37); MCV 85.1 FL (81-99); MONO# 0.67 X1000 (0.11-0.59); MONO% 4.3 % (1.7-9.3); MPV 11.5 FL (7.4-10.4); NEUT# 14.47 X1000 (1.4-6.5); NEUT% 92.4 % (42.2-75.2); PLT 149 X1000 (130-400); RBC 3.63 XMIL (4.2-5.4); RDW 16.3 % (11.5-14.5); WBC 15.63 X1000 (4.8-10.8)
[2019-03-18 17:16] LABS: AGAP 15; ALB/GLOB RATIO 1.4; ALKALINE PHOSPHATASE 81 U/L (32-104); BUN 25 mg/dL (8-22); CALCIUM 7.4 mg/dL (8.8-10.2); CHLORIDE 102 mmol/L (98-107); COSMO 284; CREATININE 0.9 mg/dL (0.5-0.9); ESTIMATED GFR > 60; GLUCOSE 141 mg/dL (70-104); GOT 31 U/L (10-30); GPT 14 U/L (10-36); SODIUM 139 mmol/L (136-145); TCO2 22 mmol/L (25-35); TOTAL BILIRUBIN 0.21 mg/dL (0.20-1.00); TOTAL PROTEIN 5.2 g/dL (6.3-8.3)
[2019-03-18 17:19] LABS: URINE SOURCE CATH
--- NOTE | 2019-03-18 17:22 | PROGRESS NOTE ---
DATE: 03/18/2019 SUBJECTIVE: I received a call from the nurse stating that this patient was more short of breath and the blood pressure was increasing. I came to the bedside to re-evaluate this patient and in fact, this patient now seems to be confused. She is able to say her name, date of , address, and she is able to say the year. She is not oriented to place. We did a chest CT scan today in the morning that showed right lower lobe pneumonia, hilar and mediastinal adenopathy. Also, we did an x-ray today in the morning that showed little change in the dense rounded opacification in the right mid lung consistent with pneumonia and they recommended at that time a chest CT scan which has been done already. Also, she has a positive blood culture 2/ that showed gram-positive cocci. She has been getting Zyvox for that and for the pneumonia she is on levofloxacin and aztreonam since she is allergic to amoxicillin. Compared with the morning, not only is the encephalopathy is new but also she is wheezing and having some abdominal discomfort, as well as chest discomfort. I will request a new set of lab work including CBC, CMP, ABGs, and troponin, x- ray, and EKG. I will place a Ribeiro catheter to better measure the urine output as well. She tolerated a little bit of diet today, at this moment. OBJECTIVE: Vital Signs: On the monitor, heart rate 128, blood pressure 132/76, oxygen saturation 96 on a Venturi mask with a respiratory rate of 26. HEENT: Head normocephalic. No trauma PERRLA. Neck: Supple. No JVD. No masses. Central trachea. Chest: Decreased breath sounds globally with prolonged expiratory phase and expiratory wheezing, crepitus, and rhonchi on the right side. Abdomen: Soft, slightly distended. Positive bowel sounds. Some tenderness to palpation around the periumbilical area. Extremities: No edema. No clubbing. No cyanosis. Neurological: The patient is alert. She is oriented x2. She is not oriented to place. She is able to say her date of and address. LABORATORY: I just asked for new lab work including CBC, CMP, ABGs, troponins. Also I just requested a chest x-ray. I did an EKG that showed sinus tachycardia at 129 beats per minute. ASSESSMENT AND PLAN: 1. Septic shock due to right lower lobe pneumonia. Also this patient is bacteremic. Continue with same management for now. 2. Gram-positive cocci bacteremia. As above, she is on Zyvox. 3. Right lower lobe pneumonia. Continue with the same antibiotics. Actually, the white blood cell count is dropping nicely from 22 to 20 and today 16.7. No fever today but at noon, her temperature increased a little bit to 99.8. 4. Encephalopathy. That could be multifactorial including infectious encephalopathy and COPD exacerbation with high CO2 level. We will monitor for now. She is oriented x2. 5. Chronic obstructive pulmonary disease exacerbation. I have placed this patient on breathing treatment, steroids, and she is already on antibiotics. Continue with oxygen supplementation. 6. History of hypertension. I have discontinue her lisinopril because of her initial low blood pressure. Now she has an acute kidney injury, so I will keep holding this treatment. 7. Type 2 diabetes. Continue with same management. Probably the blood sugars increase due to steroids. 8. Gram-positive cocci bacteremia, 2/2. Continue with Zyvox. Vancomycin has been discontinued due to acute kidney injury. 9. Hypomagnesemia, resolved. 10. Hyperlipidemia. Aware. 11. Acute kidney injury, likely due to septic shock, prerenal versus acute tubular necrosis. She is getting better. Continue with IV fluids. 12. Constipation. I have placed this patient on MiraLAX. CRITICAL CARE TIME: 40 minutes. cc: Kali Wasserman MD
[2019-03-18 17:29] LABS: BILIRUBIN URINE NEGATIVE (NEGATIVE); BLOOD URINE LARGE (NEGATIVE); COLOR YELLOW; GLUCOSE URINE TRACE mg/dL (NEGATIVE); KETONE URINE TRACE mg/dL (NEGATIVE); LEUKOCYTES URINE NEGATIVE (NEGATIVE); NITRITE URINE NEGATIVE (NEGATIVE); PROTEIN URINE 200 mg/dL (NEGATIVE); SP GRAVITY URINE 1.023; TURBIDITY URINE CLEAR (CLEAR); UROBILINOGEN URINE NORMAL (NORMAL)
[2019-03-18 17:32] LABS: UR EPITHELIAL CELLS <10 /HPF (<10); URINE BACTERIA NEGATIVE /HPF; URINE RBC TNTC /HPF (<10); URINE WBC <10 /HPF (<10)
[2019-03-18] MEDS: SOLU-MEDROL IV SCH ×2 (18:21→23:03)
[2019-03-18] MEDS ORDERED: LASIX IV ONE (19:29)
[2019-03-19] MEDS: AZACTAM 2 GM in NS 100 ML IV SCH ×3 (02:37→17:23)
[2019-03-19] MEDS: DUONEB (A & A) INH SCH ×5 (03:35→23:49)
[2019-03-19 04:56] LABS: BASO# 0.01 X1000 (0.0-0.2); BASO% 0.1 % (0.0-0.8); HEMATOCRIT 32.5 % (37.0-47.0); IMM GRAN# 0.04 X1000 (0.0-0.04); IMM GRAN% 0.3 % (0.0-0.5); LYMPH# 0.46 X1000 (1.2-3.4); LYMPH% 3.5 % (20.5-51.1); MCH 25.9 PG (27-31); MCHC 30.8 g/dL (33-37); MCV 84.2 FL (81-99); MONO# 0.47 X1000 (0.11-0.59); MONO% 3.5 % (1.7-9.3); MPV 11.4 FL (7.4-10.4); NEUT# 12.33 X1000 (1.4-6.5); NEUT% 92.6 % (42.2-75.2); PLT 180 X1000 (130-400); RBC 3.86 XMIL (4.2-5.4); WBC 13.31 X1000 (4.8-10.8)
[2019-03-19 05:11] LABS: AGAP 14; BUN 21 mg/dL (8-22); CALCIUM 8.3 mg/dL (8.8-10.2); CHLORIDE 101 mmol/L (98-107); COSMO 282; CREATININE 0.8 mg/dL (0.5-0.9); ESTIMATED GFR > 60; GLUCOSE 189 mg/dL (70-104); POTASSIUM 3.8 mmol/L (3.5-5.1); SODIUM 137 mmol/L (136-145); TCO2 22 mmol/L (25-35)
[2019-03-19] MEDS: HUMALOG SUBQ SCH ×4 (06:34→20:22)
[2019-03-19] MEDS ORDERED: MAGNESIUM SULFATE 2 GM/S.W.I. 2 GM/50 ML IVPB IV ONE ×2 (07:40→14:38)
--- NOTE | 2019-03-19 07:48 | Diag Imaging Result Doc PS360 ---
EXAM: CHEST-PORTABLE HISTORY: SOB TECHNIQUE: Single view COMPARISON: 03/18/2019 FINDINGS: The lungs are well expanded. Lower lung infiltrates are less pronounced, particularly on the right. Cardiomegaly and pulmonary edema remain. IMPRESSION: Mild interval improvement Electronically signed by Jimi Jewell 03/19/2019 7:46 AM
[2019-03-19] MEDS: BROVANA NEB INH SCH ×2 (08:00→20:01)
[2019-03-19] MEDS: SOLU-MEDROL IV SCH ×3 (08:12→22:51)
[2019-03-19] MEDS: LEVAQUIN 750 MG/D5W 750 MG/150 ML IVPB IV SCH (08:12)
[2019-03-19] MEDS ORDERED: POTASSIUM PHOSPHATE 15 MMOL in NS 250 ML IV ONE (08:30)
[2019-03-19] MEDS: MIRALAX PO SCH (09:50)
[2019-03-19] MEDS: SODIUM CHLORIDE 0.9% INJ SCH (09:50)
[2019-03-19] MEDS: TRESIBA FLEXTOUCH U-200 SUBQ SCH (09:50)
[2019-03-19] MEDS: PEPCID IV SCH ×2 (09:50→20:31)
[2019-03-19] MEDS: CRESTOR PO SCH (09:56)
[2019-03-19] MEDS: CELEXA PO SCH (09:56)
--- NOTE | 2019-03-19 10:56 | PROGRESS NOTE ---
DATE: 03/19/2019 SUBJECTIVE: This patient seems to be feeling better today compared with yesterday. She is not complaining of too much shortness of breath. Pending x-ray. She has been having frequent PVCs. I requested a cardiology department consult for this patient. I also asked for electrolytes and the potassium was normal, the magnesium was 1.7, and the phosphorus 2.2. I will give her a dose of magnesium so we can increase the magnesium level and I will replace the phosphorus as well. OBJECTIVE: Vital Signs: Temperature 98 degrees, pulse 104, respiratory rate 22, blood pressure 152/87, oxygen saturation 97% on a Venturi mask. HEENT: Head normocephalic. No trauma. PERRLA. Neck: Supple. No JVD. No masses. Central trachea. Chest: Decreased breath sounds globally with prolonged expiratory phase and expiratory wheezing. Crepitus and rhonchi on the right side mostly. Abdomen: Soft. Slightly distended but positive bowel sounds. Mild tenderness to palpation at the level of the periumbilical area. Extremities: No edema, no clubbing, no cyanosis. Neurological Examination: The patient is alert today. She is oriented x3 but it looks like she has been having confusion on and off. She is also able to say her date of and address. Laboratory: WBC 13.3, hemoglobin 10, hematocrit 32.5, platelets 180,000. Sodium 137, potassium 3.8, chloride 101, bicarbonate 22, BUN 21, creatinine 0.8, glucose 189, hemoglobin A1c 7, calcium 8.3, phosphorus 2.2, magnesium 1.7. ASSESSMENT AND PLAN: 1. Septic shock due to right lower lobe pneumonia, bacteremia. I will continue with the same management for now. Blood culture showed streptococcus pneumoniae which is basically pansensitive except for tetracycline. This patient has been getting levofloxacin, which I will continue, and I will stop the Zyvox. I have requested an evaluation by infectious disease department. She is not on pressors at this moment. 2. Streptococcal pneumoniae bacteremia. Continue with levofloxacin intravenously. She is also on aztreonam. Zyvox has been stopped. I will continue with those medications and I have requested an evaluation by the infectious disease department. I also ordered a new set of blood cultures today. 3. Right lower lobe pneumonia, as above. Continue with antibiotics. WBCs trending down. 4. Encephalopathy, multifactorial including infectious encephalopathies, chronic obstructive pulmonary disease exacerbation. I did ABG yesterday that did not show any elevation of the pCO2 or hypoxemia, but she was on a Ventimask. Also, I am not sure if she has a baseline cognitive problem like dementia. 5. Chronic obstructive pulmonary disease exacerbation. I have placed this patient on breathing treatments, steroids, and she is already on antibiotics. Continue with oxygen supplementation. 6. History of hypertension. I have discontinued her lisinopril due to her initial low blood pressure and shock. Also, she had an acute kidney injury. For now, we will continue just to monitor this patient. 7. Type 2 diabetes with a hemoglobin A1c of 7. Continue with the same management. Likely, the blood sugar will increase due to the steroids. 8. Hypomagnesemia. A couple days ago, her magnesium level was 1 and it was replaced. Today, it is 1.7 but she has been having multiple premature ventricular contractions so I will replace it again. 9. Multiple premature ventricular contractions. She started having this kind of problem apparently today. I will replace the phosphorus level and also the magnesium level. I will try to keep it around 2. 10. Hyperlipidemia. Aware. 11. Acute kidney injury, likely due to septic shock, prerenal versus acute tubular necrosis. This is getting better. Intravenous fluids were stopped and she has been placed on a diet. Urine output around 3.6 L. X-ray today showed some pulmonary edema still and she is having hypoxemic respiratory failure. She has been placed on a Ventimask. I also am going to consult the pulmonary department and I will give her an extra dose of Lasix. 12. Constipation. Continue with MiraLAX. She is having bowel movements. CRITICAL CARE TIME: 35 minutes. cc: Kali Wasserman MD
--- NOTE | 2019-03-19 11:39 | CONSULTATION ---
DATE OF CONSULTATION: 03/19/2019 CONCLUSION: The patient has pneumococcal bacteremia. I think this originated from a pneumococcal pneumonia. The patient may have an underlying immunoglobulin deficiency. It is of interest to note that the patient told me that 3 weeks ago, she got the "pneumonia shot," which usually means the pneumococcal vaccine. Most likely, if that is indeed what she got, the vaccine did not have enough time to increase the patient's immune system towards pneumococcus. The patient apparently has had times when she is confused. I think this most likely is due to the fact that she has a very serious infection, and people with a serious infection can have an abnormal central nervous system. Another possibility would be that Levaquin may be causing some of the central nervous system problems. However, I think overall, the patient is getting better. Her white count is coming down. She has not had any fever, and I would continue her on Levaquin because she has a severe allergy to penicillin, which also precludes giving the patient cephalosporin antibiotic or carbapenem antibiotic. Vancomycin, I think would be another possibility, but I would rather stick with Levaquin, and not switch to vancomycin. RECOMMENDATIONS: I agree with treating the patient with Levaquin. I would suggest treating her for 14 days with Levaquin. I think by tomorrow, we can change the Levaquin also to p.o. instead of IV. I have ordered immunoglobulin levels also. The patient does have some pins in her hand, and these possibly could have become infected while the patient was bacteremic, but in my experience, there has not been a problem of the pins getting infected when a patient is bacteremic. What I did tell the patient is that in the future, if her hand where the pins are should start swelling or is erythematous, then I think there would be a good chance that the pneumococcus is causing it, and will need to be treated with antibiotics, and most likely removing the pins also. At this time, however, I do not think we need to treat the patient for 6 weeks with Levaquin, like I do normally if somebody has foreign material in them, such as an artificial joint. DISCUSSION: The patient tells me that for about 2 weeks now, she has been having some dyspnea and cough. It unfortunately is not productive of any sputum. The patient also has been anorectic. Her blood culture grew Streptococcus pneumoniae. Repeat blood cultures were drawn today. Liver function studies are normal. Urinalysis showed no white cells or bacteria. Urine culture was negative. Chest x-ray shows bibasilar infiltrates. CBC shows a white count of 13,310, hemoglobin 10, platelet count 180,000. Creatinine is 0.8, GFR is greater than 60. PAST MEDICAL HISTORY/REVIEW OF SYSTEMS: Eyes and Ears: She does not have any problems seeing or hearing. Neck: No stiffness. Respiratory: See present illness. Cardiac: No chest pain or palpitations. GI: As mentioned above, the patient in the past 2 weeks has been anorectic. She does not, however, have vomiting or diarrhea. : No dysuria or flank pain. Bones/Joints/Muscles: No swollen joints or muscle aching. Integument: No rashes. Neurologic: No seizures. Also, see present illness discussion. 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 She has had a tubal ligation and a hysterectomy. PREVIOUS HOSPITALIZATIONS AND OPERATIONS: She has had 3 labor and deliveries, a miscarriage, a tubal ligation, a hysterectomy, removal of breast cysts, and the patient has had pins put in her fingers. MEDICAL DISEASES: Positive for obesity, diabetes mellitus, hypertension, hyperlipidemia, and chronic obstructive pulmonary disease. INFECTIOUS DISEASE HISTORY: Positive for pneumonia, urinary tract infection, and sinusitis. FAMILY HISTORY: Positive for diabetes mellitus, hypertension, myocardial infarction, stroke, and cancer. SOCIAL HISTORY: [place] She is . She has a dog as a pet. She is allergic to amoxicillin, manifested by dyspnea. The patient quit smoking cigarettes 8 years ago. She occasionally drinks alcoholic beverages. She does not abuse drugs. HOME MEDICATIONS: Include the following: Bupropion, Celexa, doxepin, insulin, lisinopril, metformin, Myrbetriq, Singulair, Crestor, and Januvia. PHYSICAL EXAMINATION: Vital Signs: Temperature is 97.2 degrees, pulse 104, respirations 23, blood pressure 135/96. The patient is 5 feet 1 inch tall. She weighs 200 pounds. General: This is an obese, elderly female. She is in no acute distress. HEENT: She can hear my spoken words and see near objects. There is no drainage from the nose or ears. She does not have any white coating on her tongue. Neck: No meningismus. Lungs: Clear to auscultation. Cardiovascular: Regular heart rate. Abdomen: Soft and nontender. Neurologic: The patient is alert. She is oriented. She does not seem confused to me. She can move her extremities. There is no tremor. Integument: No rash. Thank you for the consult. cc: Fco Curran MD
--- NOTE | 2019-03-19 12:03 | CONSULTATION ---
DATE OF CONSULTATION: 03/19/2019 IMPRESSION: 1. Sinus tachycardia with frequent ventricular ectopy in the setting of acute severe noncardiac illness with bilateral pneumococcal pneumonia and associated sepsis. 2. Type 2 diabetes mellitus. 3. Hypertension. 4. Hyperlipidemia. 5. Chronic obstructive pulmonary disease. 6. Obesity. RECOMMENDATIONS: 1. Follow up on echocardiogram results. 2. Treat for pneumonia with sepsis as you are doing. HISTORY: This 68-year-old white female with past history of COPD, type 2 diabetes mellitus, hypertension, hyperlipidemia, obesity, and previous cigarette use was admitted several days ago with minimally productive cough and pleuritic back pain. She also had some fever, but denies chills. She had some progressive shortness of breath as well. She had chest x-ray in the emergency room, which clearly demonstrated right lower lobe pneumonia and possible left lower lobe pneumonia. She has been admitted and treated for bilateral pneumonia. She was also suspected of having sepsis. Blood cultures ultimately grew pneumococcal species. She has demonstrated sinus tachycardia with frequent ventricular ectopy, and for this reason, Cardiology was consulted. She is not aware of any previous cardiac problems. There is no history of angina. She has reportedly demonstrated some tendency for intermittent confusion. She denies shortness of breath or chest pain on supplemental oxygen when I see her. PAST MEDICAL HISTORY: 1. COPD. 2. Hypertension. 3. Type 2 diabetes mellitus. 4. Hyperlipidemia. 5. Obesity. PAST SURGICAL HISTORY: Includes appendectomy, hysterectomy, tubal ligation, bladder sling procedure, open reduction internal fixation of right hand injury, as well as left breast cyst removal. ALLERGIES: She is allergic or intolerant to amoxicillin, which causes a rash. MEDICATIONS PRIOR TO ADMISSION: As listed. SOCIAL HISTORY: She quit smoking 10 years ago, and reportedly smoked multiple packs of cigarettes per day. She does not use alcohol. FAMILY HISTORY: Negative for premature coronary disease. REVIEW OF SYSTEMS: Pulmonary: Noteworthy for dyspnea and minimally productive cough, as well as pleuritic back pain. Gastrointestinal: Noncontributory. Constitutional: Noteworthy for some fever, but negative for chills. Constitutional otherwise negative. Remainder of the review of systems is negative/noncontributory with 14 total systems reviewed. PHYSICAL EXAMINATION: General: This is an obese, older, white female in no distress, on supplemental oxygen per mask. Vital Signs: Blood pressure 135/96, heart rate 105 and regular with ECG monitor showing sinus tachycardia with occasional ventricular ectopy, oxygen saturation 99%. HEENT: Extraocular movements intact. Mucous membranes moist. Neck: Supple. No jugular venous distention. No carotid bruits. Chest: Auscultation of the chest reveals inspiratory crackles in the right base posteriorly. There are scant inspiratory crackles in the left base. Cardiac: Regular tachycardia, without appreciable murmur or gallop. Abdomen: Soft. Bowel sounds are normal. Extremities: Without edema. Neurologic: She is awake and responsive. Speech is fluent. She moves all 4 extremities equally well. Skin: Warm and dry. Psychiatric: Mood is appropriate. DIAGNOSTIC DATA: A 12-lead EKG demonstrates sinus tachycardia and low-voltage QRS. LABORATORY DATA: Includes a white blood cell count of 13.3 (white blood cell count on admission 22.5), hematocrit 32.5, hemoglobin 10.0, platelet count 180,000. Sodium 137, potassium 3.8, chloride 101, carbon dioxide 22, BUN 21, creatinine 0.8. Magnesium 1.7. Initial troponin T less than 0.01 with followup troponin T's of 0.022 and 0.011. TSH 2.3. Blood culture is positive for Streptococcus pneumoniae. cc: Spencer Alcantara MD
[2019-03-19] MEDS: HALDOL IV PRN ×2 (13:34→19:50)
[2019-03-19] MEDS ORDERED: ADENOCARD IV ONE (14:21)
[2019-03-19] MEDS ORDERED: CORDARONE IV ONE (14:36)
[2019-03-19] MEDS ORDERED: CORDARONE 360 MG/D5W 360 MG/200 ML IV.SOLN IV ONE (14:37)
[2019-03-19] MEDS ORDERED: CORDARONE 150 MG/D5W 150 MG/100 ML IV.SOLN ONE (14:39)
[2019-03-19] MEDS ORDERED: LOPRESSOR ONE (14:48)
[2019-03-19] MEDS ORDERED: NS 500 ML ONE (15:01)
--- NOTE | 2019-03-19 15:17 | CONSULTATION ---
DATE OF CONSULTATION: 03/19/2019 REQUESTING PROVIDER: Dr. Kali Henderson. REASON FOR CONSULTATION: Hypoxemic respiratory failure, pneumonia. HISTORY OF PRESENT ILLNESS: This is a 68-year-old, female with a medical history of COPD, morbid obesity, diabetes mellitus type 2, hyperlipidemia, hypertension, anxiety and depression, urinary incontinence, and chronic anemia. The patient initially was admitted with right lower lobe pneumonia on 03/16/2019. She has been treated with Levaquin and aztreonam. She apparently developed worsening hypertension, declining respiratory status, and altered mental status yesterday afternoon. Since then, she has been switched to a Venturi mask with FiO2 of 40% from a nasal cannula at 2L. The nurse at the bedside reports that she is still very confused. She is only alert and oriented to person. The patient did tell me that she has some chronic cough but after that, she said, "Well, I do not remember very well." She states that she is feeling a lot better today. She has no chest pain, palpitations, nausea, constipation, diarrhea. There is no family member at the bedside. All other information is collected from the E-chart. PAST MEDICAL HISTORY: 1. COPD, chronic bronchitis. 2. Morbid obesity. Current BMI 37.8. 3. Diabetes mellitus type 2, requiring insulin. 4. Hyperlipidemia. 5. Hypertension. 6. Anxiety and depression. 7. Urinary incontinence. 8. Chronic anemia. PAST SURGICAL HISTORY: 1. Appendectomy. 2. Hysterectomy. 3. Tubal ligation. 4. Bladder tacking. 5. ORIF of the right hand. 6. Left breast cyst removal. 7. Tonsillectomy. FAMILY HISTORY: Positive for diabetes and prostate cancer. SOCIAL HISTORY: The patient used to smoke up to 4 packs per day. She started smoking at the age of 6. She quit smoking 10 years ago. She has no history of alcohol or illicit drug use. She is and lives alone. ALLERGIES: Amoxicillin. REVIEW OF SYSTEMS: A 10-point review of systems was conducted and the pertinent findings are listed in the HPI, otherwise noncontributory. PHYSICAL EXAMINATION: Vital Signs: Temperature 98.0, blood pressure 135/96, pulse 104, respiratory rate 23, oxygen saturation 99% on Venturi mask with FiO2 of 40%. General: Morbidly obese, female, chronically ill-appearing, lying in bed with no acute distress noted. HEENT: Atraumatic, normocephalic. Trachea midline. Mucosa pink and slightly dry. Respiratory: Even and unlabored. Symmetrical excursion. Auscultation revealed early inspiratory crackles bilaterally and diminished breathing sounds bilaterally. No wheezing noted at this time. Cardiovascular: Regular rate and rhythm. Gastrointestinal: Protuberant, soft, and nontender. Normoactive bowel sounds in all 4 quadrants. Extremities: No pedal edema. No cyanosis. No clubbing. Dorsalis pedis 2+ bilaterally. Neurologic: Alert and oriented x2 to person and time. Speech fluent. Followed commands. LAB DATA: White blood cells 13.31, hemoglobin 10.0, hematocrit 32.5, platelets 180,000. Sodium 137, potassium 3.8, chloride 101, carbon dioxide 22, BUN 21, creatinine 0.8, glucose 189. IMAGING DATA: Chest x-ray this morning showed the lungs are well-expanded, lower lung infiltrates are less pronounced, particularly on the right. Cardiomegaly and pulmonary edema remain. ASSESSMENT: This is a 68-year-old, female with a medical history of chronic obstructive pulmonary disease, morbid obesity, diabetes mellitus type 2, hyperlipidemia, hypertension, anxiety and depression, urinary incontinence, and chronic anemia. She has been admitted since 03/16/2019 with right lower lobe pneumonia. She apparently, since yesterday afternoon, developed worsening hypertension, declining respiratory status and altered mental status. 1. Acute hypoxic respiratory failure. 2. Right lower lobe pneumonia. 3. Chronic obstructive pulmonary disease. 4. Acute altered mental status. 5. Small pericardial effusion and bronchiectasis based on the CT of the thorax without contrast on 03/18/2019. 6. Do Not Resuscitate 1. PLAN: 1. Continue supplemental oxygen as needed. 2. Continue antibiotics per Dr. Curran. Continue steroids and bronchodilators. Consider to taper steroid off. 3. Follow up with CBC, BMP, blood culture, sputum culture, and a chest x-ray. 4. Continue GI and DVT prophylaxis. 5. Further recommendations pending hospital course. Thank you for the courtesy of this consult. Dictated by CAMILLA Roman for Archie Calix MD cc: CAMILLA Roman MD [facility]
--- NOTE | 2019-03-19 15:22 | PROGRESS NOTE ---
DATE: 03/19/2019 Patient continues intermittently confused. She developed wide-complex tachycardia that upon further review appears to be ventricular tachycardia. Blood pressure was stable. The patient was administered amiodarone 150 mg intravenously as well as 5 mg of metoprolol intravenously. She converted back to sinus rhythm with frequent ventricular ectopy and ventricular ectopy progressively decreased thereafter. IV access has been issue as patient has been pulling out her IVs. Restraints order. Magnesium previously low. Additional magnesium supplements intravenously ordered. Additionally, she appears to be somewhat intravascular volume depleted. An additional IV fluids requested. I suspect that her ventricular tachycardia very well may be catecholamine driven given no history of structural heart disease. Echocardiography is pending. cc: Spencer Alcantara MD
[2019-03-19] MEDS ORDERED: LOPRESSOR IV ONE (18:31)
[2019-03-19] MEDS: LOPRESSOR PO SCH (20:31)
[2019-03-19] MEDS ORDERED: CORDARONE 540 MG in D5W 289.2 ML IV ONE (20:37)
--- NOTE | 2019-03-19 20:51 | ECHO REPORT ---
ORDER DATE: 03/18/2019 MEASUREMENTS: 1. Septal thickness 0.8. 2. Left ventricular internal diameter in diastole 6.2. 3. Posterior wall thickness 0.8. SUMMARY: 1. Technically difficult study due to limited acoustic window quality. 2. Aortic valve is not well imaged, but appears to be without structural abnormality and opens adequately on 2-dimensional images. The peak gradient across the aortic valve is less than 10 mmHg. Mitral and tricuspid valves are without evidence of structural abnormality with very mild mitral regurgitation and very mild tricuspid regurgitation. Estimated systolic PA pressure by Doppler is 40 mmHg, suggesting mild pulmonary hypertension. Pulmonic valve is not well demonstrated. The aortic root is normal in size. 3. Mild left ventricular enlargement with normal wall thickness demonstrated. The estimated left ventricular ejection fraction is approximately 50%. No focal wall motion abnormality can be appreciated. Left atrium, right atrium, right ventricle are grossly normal in size with grossly preserved right ventricular systolic function. 4. No pericardial effusion. 5. Appearance of inferior vena cava suggests normal central venous pressure. 6. Intravenous agitated saline contrast study performed and demonstrates no evidence of right-to- left intracardiac shunting. cc: MD Kali Lara MD
[2019-03-19] MEDS: LOVENOX SUBQ SCH (22:51)
[2019-03-20] MEDS: AZACTAM 2 GM in NS 100 ML IV SCH (00:56)
[2019-03-20] MEDS: HALDOL IV PRN ×2 (02:58→19:25)
[2019-03-20] MEDS ORDERED: LOPRESSOR PO ONE (03:41)
[2019-03-20] MEDS ORDERED: COZAAR PO ONE (03:43)
[2019-03-20] MEDS: DUONEB (A & A) INH SCH ×6 (03:45→23:56)
[2019-03-20 06:28] LABS: BASO# 0.02 X1000 (0.0-0.2); BASO% 0.2 % (0.0-0.8); EOS# 0.02 X1000 (0.0-0.7); EOS% 0.2 % (0.0-10.0); HEMATOCRIT 34.5 % (37.0-47.0); HEMOGLOBIN 11.1 g/dL (12.0-16.0); IMM GRAN# 0.11 X1000 (0.0-0.04); IMM GRAN% 0.9 % (0.0-0.5); LYMPH# 0.74 X1000 (1.2-3.4); MCH 27.1 PG (27-31); MCHC 32.2 g/dL (33-37); MCV 84.1 FL (81-99); MONO# 0.64 X1000 (0.11-0.59); MONO% 5.2 % (1.7-9.3); MPV 11.8 FL (7.4-10.4); NEUT# 10.89 X1000 (1.4-6.5); NEUT% 87.5 % (42.2-75.2); PLT 246 X1000 (130-400); RDW 16.6 % (11.5-14.5); WBC 12.42 X1000 (4.8-10.8)
[2019-03-20 06:34] LABS: ALB/GLOB RATIO 0.9; ALBUMIN 3.1 g/dL (3.5-5.0); CALCIUM 8.7 mg/dL (8.8-10.2); MAGNESIUM 3.2 mg/dL (1.5-2.7); PHOSPHORUS 3.8 mg/dL (2.7-4.5); TOTAL BILIRUBIN 0.27 mg/dL (0.20-1.00); TOTAL PROTEIN 6.5 g/dL (6.3-8.3)
--- NOTE | 2019-03-20 07:10 | Diag Imaging Result Doc PS360 ---
EXAM: CHEST-PORTABLE HISTORY: dyspnea TECHNIQUE: Single view COMPARISON: 03/19/2019 FINDINGS: Pulmonary edema and infiltrates are more prominent on the current exam. The heart is mildly enlarged. There are likely tiny effusions. IMPRESSION: Interval worsening Electronically signed by Jimi Jewell 03/20/2019 7:08 AM
[2019-03-20 07:27] LABS: LYMPHS 7 % (21-51); MONO 4 % (1-9); SEGS 89 % (42-75)
[2019-03-20] MEDS ORDERED: ATIVAN IV ONE (07:39)
[2019-03-20] MEDS ORDERED: ATIVAN ONE (07:49)
--- NOTE | 2019-03-20 07:49 | EKG Report ---
Test Performed on : 03/19/2019 07:16:35 AM Test Reason : VERBAL ORDER Blood Pressure : / mmHG Vent. Rate : 105 BPM Atrial Rate : 105 BPM P-R Int : 162 ms QRS Dur : 086 ms QT Int : 380 ms P-R-T Axes : 076 041 053 degrees QTc Int : 502 ms Sinus tachycardia. with frequent and consecutive premature ventricular complexes. Low voltage QRS Abnormal ECG When compared with ECG of 18-MAR-2019 15:54, (Unconfirmed) premature ventricular complexes. are now present Confirmed by Hua CEDENO, P.J.M ([id number]) on 03/20/2019 2:55:50 PM
--- NOTE | 2019-03-20 07:49 | EKG Report ---
Test Performed on : 03/19/2019 2:19:31 PM Test Reason : CCU. No order in [place] Blood Pressure : / mmHG Vent. Rate : 140 BPM Atrial Rate : 119 BPM P-R Int : 000 ms QRS Dur : 136 ms QT Int : 394 ms P-R-T Axes : 000 -55 109 degrees QTc Int : 601 ms Wide QRS tachycardia. Left axis deviation Left bundle branch block Abnormal ECG When compared with ECG of 19-MAR-2019 07:16, (Unconfirmed) Wide QRS tachycardia. has replaced Sinus rhythm. Confirmed by Hua CEDENO, P.J.M ([id number]) on 03/20/2019 2:57:00 PM
[2019-03-20] MEDS: HUMALOG SUBQ SCH ×4 (08:04→20:04)
[2019-03-20] MEDS: NS 1,000 ML IV SCH ×2 (08:07→20:13)
[2019-03-20] MEDS: LOPRESSOR PO SCH ×2 (08:07→13:40)
--- NOTE | 2019-03-20 08:07 | PROGRESS NOTE ---
DATE: 03/20/2019 SUBJECTIVE: The patient is confused today. She is able to say her name. She is following commands on and off. Cardiology Department on board since this patient has been having ventricular tachycardia. At this moment, she is on amiodarone drip. Infectious Disease Department also evaluated this patient, and they want to treat this patient with Levaquin for at least 14 days. She has no wheezing today. She is slightly agitated. I will stop the steroids. Her liver enzymes are elevated and this is likely due to shock liver, which she had at the beginning of the hospitalization on the . Her blood pressures dropped to the 50s. At that time, we will monitor these on a daily basis. OBJECTIVE: Vital Signs: Temperature 97.5 degrees, pulse 88, respiratory rate 20, blood pressure 161/91, and oxygen saturation 93 on a Venturi mask. HEENT: Head normocephalic. No trauma. PERRLA. Neck: Supple. No JVD. No masses. Central trachea. Chest: Decreased breath sounds globally with prolonged expiratory phase. No wheezing today. Crepitus and rhonchi mostly on the right side of the thorax base. Abdomen: Soft. Slightly distended, but positive bowel sounds. She is not complaining of tenderness to palpation. Extremities: No edema. No clubbing. No cyanosis. Neurological: The patient is awake. She is alert. She is oriented x1. She is confused. LABORATORY: WBC 12.4, hemoglobin 11.1, hematocrit 34.5, and platelets 246,000. Sodium 141, potassium 4, chloride 103, bicarbonate 22, BUN 38, creatinine 1, glucose 194, calcium 8.7, phosphorus 3.8, and magnesium 3.2. AST 1183, ALT 331, alkaline phosphatase 100, and albumin 3.1. ASSESSMENT AND PLAN: 1. Septic shock due to right lower lobe pneumonia/bacteremia. We do have a positive culture that showed streptococcal pneumonia in blood. Infectious Disease Department on board, and they have recommended to continue with levofloxacin. She is not requiring pressors at this moment. We will continue with same management. 2. Streptococcal pneumonia bacteremia. Continue with IV levofloxacin for now. aztreonam and Zyvox has been stopped. 3. Right lower lobe pneumonia. Continue with antibiotics likely due to streptococcal pneumonia. White blood cell count trending down. 4. Encephalopathy. This is multifactorial. I do believe it is related to infectious encephalopathy, I am not sure if she has a baseline dementia. 5. Chronic obstructive pulmonary disease exacerbation. She started wheezing a couple of days ago, and she received some doses of steroids which I have stopped already. She is not wheezing today. 6. History of hypertension. We have discontinue her lisinopril. Cardiology Department on board. 7. Type 2 diabetes with a hemoglobin A1c of 7. Continue with same management. 8. Hypomagnesemia resolved. Actually, the magnesium level is slightly elevated today. 9. Multiple PVCs that started happening yesterday in the morning. Cardiology Department on board. She has been getting beta blockers and also amiodarone. She is on a drip right now. 10. Hyperlipidemia. Aware. 11. Acute kidney injury likely due to septic shock. It was getting better, but yesterday BUN was 21 and today 38. The creatinine is from 0.8 to 1. I have placed this patient on fluids since she is not eating too much because probably of the confusion. 12. Elevated liver function tests, likely secondary to shock liver. I will monitor this on a daily basis. 13. Constipation. Continue with MiraLAX. CRITICAL CARE TIME: 40 minutes. cc: Kali Wasserman MD MTDD
--- NOTE | 2019-03-20 08:36 | EKG Report ---
Test Performed on : 03/20/2019 01:55:00 AM Test Reason : CCU. No order in [place] Blood Pressure : / mmHG Vent. Rate : 120 BPM Atrial Rate : 120 BPM P-R Int : 264 ms QRS Dur : 146 ms QT Int : 434 ms P-R-T Axes : 107 -55 113 degrees QTc Int : 613 ms Sinus tachycardia. with 1st degree AV block. with fusion complexes Left axis deviation Left bundle branch block Abnormal ECG When compared with ECG of 20-MAR-2019 01:54, (Unconfirmed) Sinus rhythm. has replaced Wide QRS rhythm. Confirmed by Hua CEDENO, P.J.M ([id number]) on 03/20/2019 2:58:12 PM
[2019-03-20] MEDS: PEPCID IV SCH ×2 (08:43→20:13)
[2019-03-20] MEDS: LEVAQUIN 750 MG/D5W 750 MG/150 ML IVPB IV SCH (08:43)
[2019-03-20] MEDS: TRESIBA FLEXTOUCH U-200 SUBQ SCH (08:53)
[2019-03-20] MEDS: MIRALAX PO SCH (09:26)
[2019-03-20] MEDS: CELEXA PO SCH (09:26)
[2019-03-20] MEDS: CRESTOR PO SCH (09:26)
[2019-03-20] MEDS: COZAAR PO SCH (09:26)
[2019-03-20] MEDS ORDERED: BROVANA NEB ONE (11:09)
[2019-03-20] MEDS: BROVANA NEB INH SCH ×2 (11:43→19:53)
--- NOTE | 2019-03-20 12:53 | PROGRESS NOTE ---
DATE: 03/20/2019 SUBJECTIVE: Patient has had episodic agitation requiring restraints. She is presently sedated following a dose of Ativan. OBJECTIVE: Vital Signs: Blood pressure 152/97, heart rate 77, oxygen saturation 97% on Venturi mask at 35%. Neck: Jugular venous distention cannot be appreciated. Lungs: Auscultation of the chest reveals inspiratory crackles on the right with some diminished breath sounds at the left base. Cardiac: Reveals a regular rate and rhythm without appreciable murmur or gallop. There is no evidence of edema. LABORATORY DATA: Includes a white blood cell count of 12.42, hematocrit 34.5, hemoglobin 11.1, platelet count 246,000. Sodium 141, potassium 4.0, chloride 103, carbon dioxide 22, BUN 38, creatinine 1.0. AST 1183, ALT 331. DIAGNOSTIC DATA: Echocardiography technically difficult. Mild left ventricle enlargement suggested. Estimated left ventricular ejection fraction 45 to 50 percent. Appearance of the inferior vena cava suggested normal central venous pressure. This study performed on March 18. Doppler demonstrates mild pulmonary hypertension. Chest x-ray today reviewed and demonstrates bilateral pulmonary infiltrates involving the right lower lobe and left lower lobe. Cannot exclude emergence of pulmonary edema (noncardiac versus cardiac). IMPRESSION: 1. Episodes of ventricular tachycardia, now suppressed with IV amiodarone and metoprolol. 2. Apparent cardiomyopathy with mild reduction in left ventricular systolic function. 3. Bilateral pneumonia with blood cultures growing pneumococcal species. Suspect associated sepsis. 4. Type 2 diabetes mellitus. 5. Hypertension. 6. Hyperlipidemia. 7. Chronic obstructive pulmonary disease. 8. Obesity. RECOMMENDATIONS: 1. Repeat echocardiography with echo contrast agent Optison. 2. Continue IV amiodarone. 3. Continue metoprolol as tolerated along with angiotensin receptor blocking agent. Losartan as tolerated. 4. Consider diuresis if oxygenation deteriorates. 5. Continue to treat pneumonia aggressively as you are doing. cc: Spencer Alcantara MD
--- NOTE | 2019-03-20 13:12 | INFECTIOUS DISEASE PROGRESS NO ---
DATE: 03/20/2019 PRESENT ILLNESS: The patient has a pneumococcal bacteremia almost certainly originating from a pneumococcal pneumonia. She may also have an underlying immunoglobulin deficiency. MEDICATIONS: The patient currently is receiving high-dose Levaquin. PHYSICAL EXAMINATION: Vital Signs: Temperature is 98 degrees, pulse 78, respirations 20, blood pressure 146/78. General: This is an ill-appearing elderly female. She is lethargic. Head/eyes/ears/nose/throat: No drainage noted from the nose or ears. Neck: No apparent pain with movement. Lungs: There were bilateral rhonchi and patient does seem to be in respiratory distress. Cardiovascular: Heart rate is regular. Abdomen: Soft and does not appear to be tender. Neurologic: The patient is very lethargic. She did not respond to verbal stimuli. There was no tremor. Integument: No rash noted. LAB AND X-RAY: Chest x-ray shows worsening of pulmonary edema and infiltrates. Creatinine is 1. GFR is 55. AST is 1183. Repeat blood cultures are pending[place] [address], hemoglobin 11.1 and platelet count of 246,000. ASSESSMENT AND PLAN: Patient has pneumococcal bacteremia almost certainly originating from pneumococcal pneumonia. She has a very severe allergy to amoxicillin and I am hesitant to put the patient on a cephalosporin antibiotic because of that. I plan to continue with the high-dose Levaquin. If the WBC is higher and the infiltrates increase more then vancomycin can be started. COMORBIDITIES: The patient is elderly. She also is a diabetic and she also has chronic obstructive pulmonary disease. cc: Fco Curran MD MTD[facility]
[2019-03-20] MEDS ORDERED: CATAPRES-TTS-1 TD SCH (14:45)
[2019-03-20] MEDS ORDERED: CORDARONE 540 MG in D5W 289.2 ML IV ONE (15:00)
[2019-03-20 15:28] LABS: BASO# 0.02 X1000 (0.0-0.2); BASO% 0.1 % (0.0-0.8); HEMOGLOBIN 10.5 g/dL (12.0-16.0); IMM GRAN# 0.07 X1000 (0.0-0.04); IMM GRAN% 0.5 % (0.0-0.5); LYMPH# 0.84 X1000 (1.2-3.4); LYMPH% 6.1 % (20.5-51.1); MCH 25.8 PG (27-31); MCHC 30.9 g/dL (33-37); MCV 83.5 FL (81-99); MONO# 0.89 X1000 (0.11-0.59); MONO% 6.4 % (1.7-9.3); MPV 11.3 FL (7.4-10.4); NEUT# 11.98 X1000 (1.4-6.5); NEUT% 86.9 % (42.2-75.2); PLT 237 X1000 (130-400); RBC 4.07 XMIL (4.2-5.4); RDW 16.8 % (11.5-14.5)
[2019-03-20 16:01] LABS: LARGE PLATELETS OCCASIONAL; LYMPHS 5 % (21-51); MONO 3 % (1-9); NRBC 1 % (0-0); SEGS 90 % (42-75)
[2019-03-20 16:10] LABS: ALBUMIN 3.1 g/dL (3.5-5.0); CALCIUM 8.4 mg/dL (8.8-10.2); CREATININE 1.1 mg/dL (0.5-0.9); POTASSIUM 4.3 mmol/L (3.5-5.1); TOTAL BILIRUBIN 0.32 mg/dL (0.20-1.00); TOTAL PROTEIN 6.2 g/dL (6.3-8.3)
[2019-03-20 16:29] LABS: CK-MB 4.92 ng/mL (0.0-5.0)
[2019-03-20] MEDS: SODIUM CHLORIDE 0.9% INJ SCH (20:13)
[2019-03-20] MEDS: LOVENOX SUBQ SCH (22:40)
[2019-03-21 05:30] LABS: ALLEN TEST YES; BE -2.5 mmoll (-3.0-3.0); BLOOD TYPE ARTERIAL; METHB 0.9 % (0.0-1.5); O2(CT) 15.5 mL/dL (15.0-23.0); O2HB 96.7 % (95.0-99.0); PCO2(98.6) 46 mmHg (35-45); PO2(98.6) 173 mmHg (60-100); SAMPLE BLOOD; SAO2 98.2 % (95.0-100.0); SRATE 10 BPM; THB 11.1 g/dL (11.5-17.4); pH(98.6) 7.32 (7.35-7.45)
[2019-03-21 05:32] LABS: MODALITY BI PAP
[2019-03-21] MEDS: DUONEB (A & A) INH SCH ×6 (06:07→23:33)
[2019-03-21] MEDS: HUMALOG SUBQ SCH ×4 (06:16→20:19)
[2019-03-21 06:53] LABS: BASO# 0.02 X1000 (0.0-0.2); BASO% 0.1 % (0.0-0.8); HEMATOCRIT 34.3 % (37.0-47.0); HEMOGLOBIN 10.5 g/dL (12.0-16.0); IMM GRAN# 0.12 X1000 (0.0-0.04); IMM GRAN% 0.8 % (0.0-0.5); LYMPH# 0.85 X1000 (1.2-3.4); LYMPH% 5.7 % (20.5-51.1); MCH 25.7 PG (27-31); MCHC 30.6 g/dL (33-37); MCV 83.9 FL (81-99); MONO# 1.15 X1000 (0.11-0.59); MONO% 7.7 % (1.7-9.3); MPV 11.4 FL (7.4-10.4); NEUT# 12.77 X1000 (1.4-6.5); NEUT% 85.7 % (42.2-75.2); PLT 229 X1000 (130-400); RBC 4.09 XMIL (4.2-5.4); WBC 14.91 X1000 (4.8-10.8)
--- NOTE | 2019-03-21 07:09 | ECHO REPORT ---
ORDER DATE: 03/20/2019 SUMMARY: 1. Limited 2 dimensional echocardiography with intravenous echo contrast agent Optison administration to enhance endocardial definition performed. Images were obtained, Optison administered to enhance endocardial definition. Study is technically difficult. 2. Aortic valve appears to be trileaflet and opens adequately on 2-dimensional images. Mitral and tricuspid valves are without gross structural abnormality. 3. Borderline left ventricular enlargement with abnormal wall thickness suggested. The estimated left ejection fraction appears to be approximately 30% in the setting of global hypokinesis and severe septal hypokinesis. The right ventricle appears mildly enlarged, with reduced right ventricular systolic function. CONCLUSIONS: 1. Limited Followup 2 dimensional echocardiography with intravenous echo contrast agent Optison administered with technically difficult images demonstrating borderline left ventricular enlargement, and estimated ejection fraction of approximately 30% in the setting of global hypokinesis and severe septal hypokinesis. 2. Mild right ventricular enlargement with reduced right ventricular systolic function. cc: Spencer Alcantara MD
[2019-03-21 07:13] LABS: ALB/GLOB RATIO 1.4; ALBUMIN 3.2 g/dL (3.5-5.0); CALCIUM 8.2 mg/dL (8.8-10.2); CREATININE 1.2 mg/dL (0.5-0.9); MAGNESIUM 2.6 mg/dL (1.5-2.7); PHOSPHORUS 3.5 mg/dL (2.7-4.5); POTASSIUM 3.9 mmol/L (3.5-5.1); TOTAL BILIRUBIN 0.34 mg/dL (0.20-1.00); TOTAL PROTEIN 5.5 g/dL (6.3-8.3)
[2019-03-21] MEDS ORDERED: GAMUNEX-C 10% IV STA (07:26)
[2019-03-21 07:32] LABS: CK INDEX 0.7 (0.0-2.5); CK-MB 4.29 ng/mL (0.0-5.0)
[2019-03-21] MEDS ORDERED: NS 1,000 ML IV SCH (07:58)
--- NOTE | 2019-03-21 08:03 | Diag Imaging Result Doc PS360 ---
EXAM: CHEST-PORTABLE - 03/21/2019 HISTORY: dyspnea TECHNIQUE: Portable chest COMPARISON: 03/20/2019 FINDINGS: There is cardiomegaly similar to prior. There are bilateral infiltrates and/or edema similar to prior. There are apparent small right and tiny left pleural effusions. There is no pneumothorax identified. IMPRESSION: Cardiomegaly and bilateral infiltrates/edema similar to prior. Electronically signed by Han Lala 03/21/2019 8:01 AM
--- NOTE | 2019-03-21 08:20 | PROGRESS NOTE ---
DATE: 03/21/2019 SUBJECTIVE: This patient is lethargic today. Apparently, as per the nurse, she received a dose of Haldol yesterday. She is opening her eyes with my voice and she withdrawals with pain. She is no longer on vasopressors. She is still on the amiodarone drip. She had some episodes of ventricular tachycardia during the night, but at this moment she does not have any. OBJECTIVE: Vital Signs: Temperature 97.8 degrees, pulse 84, respiratory rate 20, blood pressure 141/97, oxygen saturation 98 on the BiPAP machine. HEENT: Head normocephalic. No trauma. PERRLA. Neck: Supple. No JVD. No masses. Central trachea. Chest: Decreased breath sounds globally with prolonged expiratory phase. Some mild scattered wheezing. Crepitus and rhonchi mostly at the bases, more increased on the right side. Abdomen: Soft. Slightly distended, but positive bowel sounds. She is not complaining of tenderness to palpation. Extremities: No edema, no clubbing, no cyanosis. Neurological: The patient is lethargic, but arousable. She is able to squeeze my hand on and off, but she is falling asleep right away. LABORATORY: WBC 14.9, hemoglobin 10.5, hematocrit 34.3, platelets 229,000. Sodium 144, potassium 3.9, chloride 106, bicarbonate 20, BUN 47, creatinine 1.2, glucose 169, calcium 8.2, alkaline phosphatase 143. CK level 578. Pending AST, ALT. ASSESSMENT AND PLAN: 1. Septic shock due to right lower lobe pneumonia/bacteremia. We do have a positive culture that showed streptococcal pneumoniae in blood. Infectious Disease is apparently on board. They have recommended to continue with levofloxacin. Chest x-ray for me looks about the same compared with yesterday. Infectious Disease department has recommended to start vancomycin if the WBC is higher and the infiltrates increase. Since the white blood cells increased from 13.8 to 14.9, I will go ahead and start this patient on Zyvox and not vancomycin because of her acute kidney injury. 2. Streptococcal pneumoniae bacteremia. As above, continue with levofloxacin. I have restarted Zyvox today due to the mild increase of the WBC and the possibility of worsening infiltrate, but for me that looks about the same. 3. Right lower lobe pneumonia. Continue with antibiotics. 4. Encephalopathy, multifactorial, probably related to the infectious process and/or medications as well. 5. Chronic obstructive pulmonary disease exacerbation. She is slightly wheezing today, but not that bad. I will continue with same management. Pulmonary department on board. 6. History of hypertension. Will monitor for now. We have discontinued her lisinopril. 7. Type 2 diabetes with a hemoglobin A1c of 7, stable. 8. Hypomagnesemia, resolved. 9. Hypophosphatemia, resolved. They are normal today. 10. Hyperlipidemia, aware. I will stop the Crestor due to her elevated liver function tests. 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 We will give her a dose of IVIG today. 12. Acute kidney injury, likely due to septic shock. We will avoid nephrotoxic medications. 13. Elevated liver function tests, likely secondary to shock liver. I will monitor this on a daily basis. 14. Constipation. Continue with MiraLAX. 15. I had a conversation with the son at the bedside yesterday. He also discussed the case with one of the nurses, Binta. He agree with the decision that his mom made of being Do Not Resuscitate, only if her heart stops beating or she stops breathing, but he states that if this is a medical condition that can be treated with mechanical ventilation so she can get better, he would like to do that, but definitely no chest compressions. At this moment she is on the BiPAP machine. We will monitor for now. On the other hand, I will decrease a little bit the rate of normal saline and I will start this patient on Clinimix since she is not eating. CRITICAL CARE TIME: 40 minutes. cc: Kali Wasserman MD
[2019-03-21] MEDS: CORDARONE 540 MG in D5W 289.2 ML IV SCH ×2 (09:14→22:34)
[2019-03-21] MEDS: PEPCID IV SCH ×2 (09:15→19:38)
[2019-03-21] MEDS: COZAAR PO SCH (09:17)
[2019-03-21] MEDS: MIRALAX PO SCH (09:17)
[2019-03-21] MEDS: LEVAQUIN 750 MG/D5W 750 MG/150 ML IVPB IV SCH (09:31)
[2019-03-21] MEDS: ZYVOX 600 MG/D5W 600 MG/300 ML IVPB IV SCH ×2 (09:34→19:37)
[2019-03-21] MEDS: TRESIBA FLEXTOUCH U-200 SUBQ SCH (09:37)
[2019-03-21] MEDS ORDERED: BROVANA NEB ONE (11:04)
[2019-03-21] MEDS: BROVANA NEB INH SCH ×2 (11:17→19:37)
[2019-03-21] MEDS: LASIX IV SCH (11:37)
[2019-03-21] MEDS: CLINIMIX E 4.25%-5% SOLUTION 1,000 ML IV SCH (11:38)
--- NOTE | 2019-03-21 12:17 | CARDIOLOGY PROGRESS NOTE ---
DATE: 03/21/2019 CHIEF COMPLAINT: Shortness of breath, restlessness, ventricular tachycardia. SUBJECTIVE: Ms. Deng right now is agitated. She is not cooperative. She has a BiPAP mask on. OBJECTIVE: Blood pressure is 166/99, temperature 98.5, pulse 83, respirations 18. The patient is awake intermittently, agitated. Does not really follow commands. HEENT: Unremarkable. Chest: Diminished breath sounds diffusely. Heart sounds are for the most part regular and rhythmic. Abdomen is obese. Extremities showed no obvious edema. Neurologic: Agitated and uncooperative. DIAGNOSTIC DATA: White cell count is 14,910. Sodium 144, potassium 3.9, BUN is 47, creatinine 1.2. IMPRESSION: 1. The patient has streptococcal pneumonia. 2. Ventricular tachycardia, paroxysmal, controlled with amiodarone. 3. Systolic heart failure, mild degree. 4. Diabetes mellitus type 2. 5. Hypertension. RECOMMENDATIONS: At this time, continue management of pneumonia. Pulmonary and primary medical service in charge of that. We will continue low dose of amiodarone to minimize ventricular arrhythmia. No other suggestions at this time. cc: Misha Jensen MD
[2019-03-21] MEDS ORDERED: GEODON IM PRN (13:14)
[2019-03-21] MEDS ORDERED: STERILE WATER INJ. INJ PRN (13:14)
[2019-03-21] MEDS: HALDOL IV PRN ×2 (13:20→21:13)
[2019-03-21] MEDS: SODIUM CHLORIDE 0.9% INJ SCH (19:38)
[2019-03-21] MEDS: LOVENOX SUBQ SCH (23:05)
[2019-03-22] MEDS: CORDARONE 540 MG in D5W 289.2 ML IV SCH (03:20)
[2019-03-22] MEDS: DUONEB (A & A) INH SCH ×6 (03:24→23:40)
[2019-03-22] MEDS: HALDOL IV PRN ×2 (04:40→21:35)
[2019-03-22 05:50] LABS: ALLEN TEST YES; BE 8.2 mmoll (-3.0-3.0); BLOOD TYPE ARTERIAL; HCO3-(ACT) 31.3 mmoll (20.0-26.0); O2(CT) 15.9 mL/dL (15.0-23.0); O2HB 95.1 % (95.0-99.0); PO2(98.6) 82 mmHg (60-100); SAMPLE BLOOD; SAO2 96.8 % (95.0-100.0); THB 11.8 g/dL (11.5-17.4); pH(98.6) 7.43 (7.35-7.45)
[2019-03-22 05:52] LABS: MODALITY BI PAP; PCO2(98.6) 51 mmHg (35-45)
--- NOTE | 2019-03-22 05:58 | Diag Imaging Result Doc PS360 ---
EXAM: CHEST-PORTABLE HISTORY: dyspnea TECHNIQUE: Single view COMPARISON: 03/21/2019 FINDINGS: The lungs are well expanded. There is cardiomegaly and pulmonary edema. Tiny pleural effusions. Right perihilar pneumonia. IMPRESSION: Mild interval worsening. Electronically signed by Jimi Jewell 03/22/2019 5:55 AM
[2019-03-22] MEDS: HUMALOG SUBQ SCH ×4 (06:25→20:37)
[2019-03-22 06:38] LABS: BASO# 0.01 X1000 (0.0-0.2); BASO% 0.1 % (0.0-0.8); HEMATOCRIT 38.1 % (37.0-47.0); HEMOGLOBIN 11.7 g/dL (12.0-16.0); IMM GRAN# 0.17 X1000 (0.0-0.04); LYMPH# 0.66 X1000 (1.2-3.4); LYMPH% 4.1 % (20.5-51.1); MCH 25.4 PG (27-31); MCHC 30.7 g/dL (33-37); MCV 82.8 FL (81-99); MONO# 1.69 X1000 (0.11-0.59); MONO% 10.4 % (1.7-9.3); MPV 10.8 FL (7.4-10.4); NEUT# 13.74 X1000 (1.4-6.5); NEUT% 84.4 % (42.2-75.2); PLT 210 X1000 (130-400); RDW 16.7 % (11.5-14.5); WBC 16.27 X1000 (4.8-10.8)
[2019-03-22 06:56] LABS: ALB/GLOB RATIO 0.8; ALBUMIN 3.3 g/dL (3.5-5.0); CALCIUM 8.7 mg/dL (8.8-10.2); CREATININE 1.2 mg/dL (0.5-0.9); PHOSPHORUS 1.5 mg/dL (2.7-4.5); POTASSIUM 3.1 mmol/L (3.5-5.1); TOTAL BILIRUBIN 0.52 mg/dL (0.20-1.00); TOTAL PROTEIN 7.2 g/dL (6.3-8.3)
[2019-03-22] MEDS ORDERED: POTASSIUM PHOSPHATE 15 MMOL in NS 250 ML IV ONE (07:48)
--- NOTE | 2019-03-22 08:22 | PROGRESS NOTE ---
DATE: 03/22/2019 SUBJECTIVE: The patient seems to be more awake today. She was able to say her name, and she is following commands. Yesterday, she was lethargic. She had a few episodes of ventricular tachycardia during the night, but as per the nurse, they did not last too long. She is still on the amiodarone drip. Her potassium and phosphorus are low, and I will replace it. OBJECTIVE: Vital Signs: Temperature 98.7 degrees, pulse 97, respiratory rate 23, blood pressure 185/105, oxygen saturation 97% on the BiPAP machine. HEENT: Head normocephalic. No trauma. PERRLA. Neck: Supple. No JVD. No masses. Central trachea. Chest: Decreased breath sounds globally with prolonged expiratory phase. Some mild scattered wheezing. Crepitus and rhonchi, mostly at the bases, and it is more increased on the right side. Abdomen: Soft, slightly distended, but positive bowel sounds. She is not complaining of tenderness to palpation. Extremities: No edema, no clubbing, no cyanosis. Neurological: This patient seems to be more awake. She is following commands for me. She is able to say her name, but she seems to be really weak. LABORATORY DATA: WBC 16.2, hemoglobin 11.7, hematocrit 38.1, platelets 210,000. Sodium 142, potassium 3.1, chloride 97, bicarbonate 30, BUN 35, creatinine 1.2, glucose 212, calcium 8.7. Phosphorus 1.5. AST 925, ALT 774, alkaline phosphatase 162, albumin 3.3. ASSESSMENT AND PLAN: 1. Septic shock due to right lower lobe pneumonia/bacteremia. We have a positive culture that showed streptococcal pneumonia. Infectious Disease Department on board. Continue with the same management. WBC is a little bit elevated today compared with yesterday. Chest x-ray looks a little bit worse, but she is having good urine output, and she seems to be getting better. She is no longer on pressors. 2. Streptococcal pneumonia bacteremia. As above, continue with levofloxacin. I have started this patient on Zyvox due to her increase of the white blood cells. 3. Right lower lobe pneumonia. Continue antibiotics. 4. Encephalopathy, multifactorial, likely related to the infectious process and/or medications as well. She seems to be better. She is following commands today for me. 5. Chronic obstructive pulmonary disease exacerbation. She has mild and faint scattered wheezing, but she is better. Continue with the same management. 6. History of hypertension. Will monitor for now. We have discontinued her lisinopril. Cardiology on board. The blood pressure is still elevated. 7. Type 2 diabetes with hemoglobin A1c of 7, stable. 8. Hypomagnesemia, resolved. 9. Hypophosphatemia. I will replace the phosphorus today. 10. Hypokalemia. I will replace the potassium today. 11. Acute kidney injury, likely due to septic shock. We will avoid nephrotoxic medications. We started this patient on Lasix yesterday due to pulmonary edema, and the kidney function actually is getting a little bit better. At least, the BUN and the urine output are good. 12. 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 13. Hyperlipidemia. Aware. 14. Constipation. Continue MiraLAX. CRITICAL CARE TIME: 35 minutes. cc: Kali Wasserman MD
[2019-03-22] MEDS: PEPCID IV SCH ×2 (08:53→20:35)
[2019-03-22] MEDS: LEVAQUIN 750 MG/D5W 750 MG/150 ML IVPB IV SCH (08:54)
[2019-03-22] MEDS: ZYVOX 600 MG/D5W 600 MG/300 ML IVPB IV SCH ×2 (08:55→20:32)
[2019-03-22] MEDS: MIRALAX PO SCH (09:03)
[2019-03-22] MEDS: COZAAR PO SCH (09:03)
[2019-03-22] MEDS: TRESIBA FLEXTOUCH U-200 SUBQ SCH (09:04)
[2019-03-22] MEDS: LASIX IV SCH (09:50)
--- NOTE | 2019-03-22 11:12 | CARDIOLOGY PROGRESS NOTE ---
DATE: 03/22/2019 CHIEF COMPLAINT: Shortness of breath, irregular heartbeat. SUBJECTIVE: Ms. Deng remains on high flow oxygen; however, she is less agitated than yesterday. Her chest x-ray today shows mild interval worsening. She is obtunded. OBJECTIVE: Temperature 98.7, pulse is 89, respirations 25, blood pressure 155/94. She is difficult to arouse. Brother is sitting at the bedside. HEENT is unremarkable. Chest: Diminished breath sounds diffusely. Heart sounds are regular and rhythmic. No definite gallop or murmur. Her abdomen is obese. Extremities showed no obvious edema. Neurologic: She is very obtunded and does not follow a whole lot of commands. DIAGNOSTIC DATA: Blood work shows sodium 142, potassium 3.1, BUN is 35, creatinine 1.2. AST and ALT are coming down from 03/20/2019 onwards. IMPRESSION: 1. The patient has pneumonia, severe, Streptococcal pneumonia. 2. Paroxysmal ventricular tachycardia.Controlled with amiodarone. 3. Systolic heart failure. 4. Hypertension. 5. Diabetes mellitus type 2. 6. Acute organic brain dysfunction/delirium secondary to sepsis. RECOMMENDATIONS: At this time, we will continue present management. Her prognosis is still somewhat guarded. cc: Misha Jensen MD [facility]
[2019-03-22] MEDS: CLINIMIX E 4.25%-5% SOLUTION 1,000 ML IV SCH (15:00)
[2019-03-22] MEDS ORDERED: BROVANA NEB ONE (15:13)
[2019-03-22] MEDS: CORDARONE 360 MG/D5W 360 MG/200 ML IV.SOLN IV SCH (15:28)
[2019-03-22] MEDS: BROVANA NEB INH SCH ×2 (15:43→19:55)
[2019-03-22] MEDS: LOVENOX SUBQ SCH (22:42)
[2019-03-23] MEDS: DUONEB (A & A) INH SCH ×6 (03:14→23:52)
[2019-03-23] MEDS: CORDARONE 360 MG/D5W 360 MG/200 ML IV.SOLN IV SCH ×2 (03:40→14:41)
[2019-03-23 04:25] LABS: BASO# 0.02 X1000 (0.0-0.2); BASO% 0.1 % (0.0-0.8); EOS# 0.03 X1000 (0.0-0.7); EOS% 0.2 % (0.0-10.0); HEMATOCRIT 39.2 % (37.0-47.0); HEMOGLOBIN 12.2 g/dL (12.0-16.0); IMM GRAN# 0.15 X1000 (0.0-0.04); LYMPH# 1.02 X1000 (1.2-3.4); LYMPH% 6.7 % (20.5-51.1); MCH 25.2 PG (27-31); MCHC 31.1 g/dL (33-37); MONO# 1.23 X1000 (0.11-0.59); MONO% 8.1 % (1.7-9.3); MPV 10.8 FL (7.4-10.4); NEUT% 83.9 % (42.2-75.2); PLT 218 X1000 (130-400); RBC 4.84 XMIL (4.2-5.4); RDW 16.4 % (11.5-14.5); WBC 15.15 X1000 (4.8-10.8)
[2019-03-23 04:50] LABS: ALB/GLOB RATIO 0.7; ALBUMIN 2.8 g/dL (3.5-5.0); CALCIUM 9.1 mg/dL (8.8-10.2); MAGNESIUM 1.7 mg/dL (1.5-2.7); PHOSPHORUS 1.4 mg/dL (2.7-4.5); POTASSIUM 2.8 mmol/L (3.5-5.1); TOTAL BILIRUBIN 0.58 mg/dL (0.20-1.00); TOTAL PROTEIN 6.9 g/dL (6.3-8.3)
[2019-03-23 04:56] LABS: ALLEN TEST YES; BE 9.5 mmoll (-3.0-3.0); BLOOD TYPE ARTERIAL; HCO3-(ACT) 32.3 mmoll (20.0-26.0); METHB 0.6 % (0.0-1.5); O2(CT) 17.2 mL/dL (15.0-23.0); O2HB 94.4 % (95.0-99.0); PCO2(98.6) 46 mmHg (35-45); PO2(98.6) 75 mmHg (60-100); SAMPLE BLOOD; SAO2 96.2 % (95.0-100.0); THB 12.9 g/dL (11.5-17.4); pH(98.6) 7.48 (7.35-7.45)
[2019-03-23 04:57] LABS: MODALITY HIGH FLOW NASAL CAN
[2019-03-23] MEDS: POTASSIUM CHLORIDE 20 MEQ/SWI 20 MEQ/100 ML IVPB IV SCH ×2 (05:36→07:03)
[2019-03-23] MEDS: HUMALOG SUBQ SCH ×4 (06:14→20:24)
[2019-03-23] MEDS ORDERED: POTASSIUM PHOSPHATE 21 MMOL in NS 250 ML IV ONE (07:02)
[2019-03-23] MEDS ORDERED: BROVANA NEB ONE (07:27)
--- NOTE | 2019-03-23 07:46 | Diag Imaging Result Doc PS360 ---
EXAM: CHEST-PORTABLE INDICATION: dyspnea TECHNIQUE: One view COMPARISON: 03/22/2019 FINDINGS: Bilateral infiltrates, worse on the right, are again noted. There appears to be some worsening in the right upper lobe as compared to previous study. No other new consolidation is identified. Cardiac silhouette is stable. IMPRESSION: Interval worsening of infiltrate in the right upper lobe. Stable chest, otherwise. Electronically signed by Luke Puri 03/23/2019 7:43 AM
[2019-03-23] MEDS ORDERED: SODIUM PHOSPHATE 21 MMOL in NS 250 ML IV ONE (08:00)
--- NOTE | 2019-03-23 08:16 | PROGRESS NOTE ---
DATE: 03/23/2019 SUBJECTIVE: This patient is lying comfortably in bed. At this moment, she is not complaining of pain. At this moment, she seems to be oriented to time, place, person, date of . She knows who is the president of [facility]. She is following commands. She is tired. OBJECTIVE: Vital Signs: Temperature 97.8 degrees, pulse 106, respiratory rate 21, blood pressure 161/98, oxygen saturation 94% on a high-flow nasal cannula. HEENT: Head normocephalic, no trauma. PERRLA. Neck: Supple. No JVD. No masses. Central trachea. Chest: Decreased breath sounds globally with prolonged expiratory phase, crepitus and rhonchi. Some mild scattered faint expiratory wheezing. The crepitus and rhonchi are more increased on the right side. Abdomen: Soft, slightly distended, but positive bowel sounds. She is not complaining of tenderness. Extremities: Trace edema. No clubbing, no cyanosis. Neurological: The patient seems to be sleepy but arousable. She is answering all my questions, name, place, time, who is the president of [facility]. She is oriented to situation. She knows her address and she does have generalized weakness, which is quite severe. LABORATORY: WBC 15.1, hemoglobin 12.2, hematocrit 39.2, platelets 218,000. Sodium 138, potassium 2.8, chloride 93, bicarbonate 29, BUN 28, creatinine 1, glucose 219, calcium 9.1, phosphorus 1.4, magnesium 1.7. AST 268, ALT 490, alkaline phosphatase 145, albumin 2.8. ASSESSMENT AND PLAN: 1. Septic shock due to right lower lobe pneumonia/bacteremia. We have a positive culture that showed streptococcal pneumonia. Infectious Disease Department on board. Continue with the same management. White blood cell count increased a little bit during the weekend and today decreased from 16,000 to 15,000. I put this patient not only on levofloxacin as recommended by Infectious Disease Department, but also I added Zyvox since her blood pressure and x-ray were worse. I will continue following their recommendations. 2. Streptococcal pneumonia bacteremia. Continue with levofloxacin. I have started this patient on Zyvox due to her increase of the white blood cell count. 3. Right lower lobe pneumonia. Continue with the same treatment. 4. Encephalopathy, multifactorial. This is getting much better. She is having confusion on and off though but at this moment she is oriented x4 and following commands. She is really weak. 5. Chronic obstructive pulmonary disease exacerbation. She still has some mild faint scattered wheezing bilaterally. We will continue with breathing treatment and antibiotics. 6. History of hypertension. For now, we will monitor. Cardiology on board. 7. Type 2 diabetes with a hemoglobin A1c 7, stable. 8. Hypomagnesemia, resolved. 9. Hypophosphatemia. I will replace the phosphorus today and I will recheck that tomorrow. 10. Hypokalemia. She is getting also potassium through her IV. 11. Acute kidney injury likely due to septic shock. This patient's kidney function is getting better. We are using some Lasix to help with the pulmonary edema since this patient probably is in CHF. 12. Congestive heart failure. She has an ejection fraction of 30% in the setting of global hypokinesis and severe septal hypokinesis. Cardiology department on board. Continue with diuresis. 13. Immunoglobulin deficiency. She received a dose of IVIG already. 14. Hyperlipidemia, aware. 15. Constipation. Continue with MiraLAX. 16. Multiple supraventricular tachycardia. She has been placed on amiodarone drip. Cardiology department following this patient closely. 17. Elevated liver function tests, likely due to shock liver. They are getting better. Overall, this patient seems to be doing better, but she is still remarkably sick. We will continue with same management. Pulmonary Department and Infectious Disease Department and Cardiology Department on board. We will try to feed this patient today and also have requested physical therapy and occupational therapy evaluation. For now we will continue with the Clinimix as well since she is not eating at this moment. She seems to be more awake and more alert even though she has been having some episodes of confusion. CRITICAL CARE TIME: 40 minutes. cc: Kali Wasserman MD
[2019-03-23] MEDS: BROVANA NEB INH SCH ×2 (08:28→19:58)
[2019-03-23] MEDS: MIRALAX PO SCH (08:33)
[2019-03-23] MEDS: COZAAR PO SCH (08:33)
[2019-03-23] MEDS: PEPCID IV SCH ×2 (08:37→20:24)
[2019-03-23] MEDS: TRESIBA FLEXTOUCH U-200 SUBQ SCH (08:38)
[2019-03-23] MEDS: CLINIMIX E 4.25%-5% SOLUTION 1,000 ML IV SCH (08:39)
[2019-03-23] MEDS: LEVAQUIN 750 MG/D5W 750 MG/150 ML IVPB IV SCH (08:39)
[2019-03-23] MEDS: ZYVOX 600 MG/D5W 600 MG/300 ML IVPB IV SCH ×2 (08:39→20:24)
[2019-03-23] MEDS ORDERED: INSULIN PEN NEEDLES ONE (08:41)
--- NOTE | 2019-03-23 09:19 | EKG Report ---
Test Performed on : 03/21/2019 11:50:17 PM Test Reason : CCU. No order in [place] Blood Pressure : / mmHG Vent. Rate : 102 BPM Atrial Rate : 102 BPM P-R Int : 150 ms QRS Dur : 090 ms QT Int : 418 ms P-R-T Axes : 083 059 039 degrees QTc Int : 544 ms Sinus tachycardia. with frequent premature ventricular complexes. Septal infarct (cited on or before 21-MAR-2019) Prolonged QT Abnormal ECG When compared with ECG of 21-MAR-2019 03:17, (Unconfirmed) Nonspecific T wave abnormality, improved in Anterior leads Confirmed by Alex CEDENO, Vince ([id number]) on 03/24/2019 8:50:32 AM
--- NOTE | 2019-03-23 09:19 | EKG Report ---
Test Performed on : 03/22/2019 00:22:59 AM Test Reason : CCU. No order in MT Blood Pressure : / mmHG Vent. Rate : 104 BPM Atrial Rate : 104 BPM P-R Int : 146 ms QRS Dur : 084 ms QT Int : 400 ms P-R-T Axes : 083 074 058 degrees QTc Int : 526 ms Sinus tachycardia. Nonspecific ST abnormality Abnormal ECG When compared with ECG of 21-MAR-2019 23:50, (Unconfirmed) premature ventricular complexes. are no longer present Confirmed by Alex CEDENO, Vince ([id number]) on 03/24/2019 8:50:45 AM
--- NOTE | 2019-03-23 09:19 | EKG Report ---
Test Performed on : 03/21/2019 03:17:00 AM Test Reason : CCU. No order in MT Blood Pressure : / mmHG Vent. Rate : 087 BPM Atrial Rate : 087 BPM P-R Int : 158 ms QRS Dur : 084 ms QT Int : 408 ms P-R-T Axes : 065 044 038 degrees QTc Int : 490 ms Sinus rhythm. with frequent and consecutive premature ventricular complexes. Cannot rule out Anterior infarct , age undetermined Abnormal ECG When compared with ECG of 20-MAR-2019 01:55, fusion complexes are no longer present premature ventricular complexes. are now present MD interval has decreased Left bundle branch block is no longer present Minimal criteria for Anterior infarct are now present Confirmed by Alex CEDENO, Vince ([id number]) on 03/24/2019 8:49:17 AM
[2019-03-23] MEDS: LASIX IV SCH (10:45)
[2019-03-23] MEDS ORDERED: MAGNESIUM SULFATE 2 GM/S.W.I. 2 GM/50 ML IVPB IV ONE (11:17)
[2019-03-23] MEDS: MUCOMYST 20% INH SCH ×2 (12:06→19:58)
[2019-03-23] MEDS: LOPRESSOR IV SCH ×3 (12:09→23:19)
--- NOTE | 2019-03-23 14:41 | CARDIOLOGY PROGRESS NOTE ---
DATE: 03/23/2019 SUBJECTIVE: Ms. Deng continues to be somewhat confused. She is able to answer questions though. PHYSICAL EXAMINATION: She is afebrile. Heart rate 93, blood pressure 172/96. General: She is in no acute distress. Cardiovascular: She sounds to be in a regular rate and rhythm. She has no obvious murmurs. She has no S3. She has no lower extremity edema. Chest: Examination has some coarse breath sounds somewhat diffusely. No increased work of breathing. Abdomen is soft, nontender. PERTINENT DATA: Her white count is 15, hematocrit is 39, platelet count 218,000. Sodium 138, potassium is 3.2, BUN 28, creatinine is 1. Her magnesium level is 1.7, phosphorus 1.4. ASSESSMENT: Ms. Deng is a 68-year-old female with a history of sepsis, streptococcal bacteremia, pneumonia, encephalopathy, with congestive heart failure and paroxysmal ventricular tachycardia. PLAN: We will continue her on amiodarone. She is not able to reliably take oral medications at this point. I have initiated Lopressor 5 mg IV q.6 hours given her reduced heart function as well as her ventricular tachycardia. I will replete her magnesium. Her potassium has already been repleted today. Dr. Alcantara will be back to follow the patient tomorrow. cc: Chris Snider MD
[2019-03-23] MEDS: MYCOSTATIN SUSP PO SCH ×2 (17:19→20:24)
--- NOTE | 2019-03-23 18:36 | INFECTIOUS DISEASE PROGRESS NO ---
DATE: 03/23/2019 PRESENT ILLNESS: Ms. Deng is being treated for a pneumococcal bacteremia as well as a pneumonia. She also has an underlying immunoglobulin deficiency with an IgG of 542. There is a leukocytosis as well as a new oral candidiasis. MEDICATIONS: Today is day 6 of treatment with Levaquin 750 mg IV daily and day 2 of Zyvox 600 mg IV every 12 hours. She has already received IVIG on this admission. PHYSICAL EXAMINATION: Vital Signs: Temperature is 98.9 degrees, pulse rate 80, respiratory rate 20, blood pressure 130/83, O2 saturation is 94% on 40% FiO2 high-flow nasal cannula. General: This is an elderly, critically ill-appearing female. She is sitting up in bed, currently in mild respiratory distress. HEENT: Atraumatic, normocephalic. Oral mucous membranes are pink. There is a thick white coating noted to her tongue. Conjunctivae are pink. Neck: Supple. Trachea is midline. Cardiovascular: Heart rate and rhythm are regular. Normal sinus rhythm on the monitor. Respiratory: Lung sounds have some coarse wheezes noted bilaterally. Somewhat diminished in the bases. There is mild work of breathing noted. Abdomen: Soft, round and nontender. Bowel sounds are active. Neurologic: She is awake, alert, and appropriate. Infrequent verbalizations, but will nod her head yes or no. Unable to move extremities with generalized weakness noted. LABORATORY AND X-RAY: Today her white count is 15.15, hemoglobin 12.2, platelet count 218,000. PH is 7.48, pCO2 46, PO2 75 on a 45% high-flow nasal cannula. Creatinine is 1 with a GFR of 55. Total bilirubin is 0.58, AST 268, ALT 490, alkaline phosphatase 145. Previously her immunoglobulin level showed an IgA of 273, IgG of 542, an IgM of 32. She also had blood cultures which grew a streptococcal pneumoniae. Chest x-ray today shows interval worsening infiltrate to the right upper lobe. ASSESSMENT AND PLAN: Ms. Deng is being treated for pneumococcal bacteremia and pneumonia which is worsening based on her chest x-ray. She is receiving Zyvox which was just added a couple days ago and high-dose Levaquin. Today is day 6. The leukocytosis has improved slightly from yesterday. We will continue Zyvox and high-dose Levaquin at this point. There is also an oral candidiasis noted and we will order nystatin swish and swallow for that. These plans have been discussed with and recommended by Dr. Curran. COMORBIDITIES: For Ms. Deng include that she is elderly with diabetes mellitus, obesity, and COPD. Dictated by CAMILLA Guzman for Fco Curran MD cc: Fco Curran MD [facility]
[2019-03-23] MEDS: LOVENOX SUBQ SCH (23:19)
[2019-03-24] MEDS: DUONEB (A & A) INH SCH ×6 (03:15→23:14)
[2019-03-24] MEDS: CORDARONE 360 MG/D5W 360 MG/200 ML IV.SOLN IV SCH ×2 (03:52→15:57)
[2019-03-24 05:07] LABS: ALLEN TEST YES; BLOOD TYPE ARTERIAL; HCO3-(ACT) 33.5 mmoll (20.0-26.0); METHB 0.4 % (0.0-1.5); O2(CT) 13.7 mL/dL (15.0-23.0); PO2(98.6) 71 mmHg (60-100); SAMPLE BLOOD; SAO2 95.3 % (95.0-100.0); THB 10.3 g/dL (11.5-17.4); pH(98.6) 7.46 (7.35-7.45)
[2019-03-24 05:10] LABS: MODALITY VENTILATOR; PCO2(98.6) 51 mmHg (35-45)
[2019-03-24 05:36] LABS: BASO# 0.01 X1000 (0.0-0.2); BASO% 0.1 % (0.0-0.8); EOS# 0.19 X1000 (0.0-0.7); EOS% 1.1 % (0.0-10.0); HEMATOCRIT 38.1 % (37.0-47.0); HEMOGLOBIN 12.1 g/dL (12.0-16.0); IMM GRAN% 1.2 % (0.0-0.5); LYMPH# 1.32 X1000 (1.2-3.4); LYMPH% 7.8 % (20.5-51.1); MCH 25.3 PG (27-31); MCHC 31.8 g/dL (33-37); MCV 79.7 FL (81-99); MONO# 1.27 X1000 (0.11-0.59); MONO% 7.5 % (1.7-9.3); NEUT# 14.02 X1000 (1.4-6.5); NEUT% 82.3 % (42.2-75.2); PLT 243 X1000 (130-400); RBC 4.78 XMIL (4.2-5.4); RDW 16.7 % (11.5-14.5); WBC 17.01 X1000 (4.8-10.8)
[2019-03-24 06:09] LABS: ALB/GLOB RATIO 0.7; ALBUMIN 2.8 g/dL (3.5-5.0); CALCIUM 8.9 mg/dL (8.8-10.2); CREATININE 1.2 mg/dL (0.5-0.9); MAGNESIUM 2.4 mg/dL (1.5-2.7); PHOSPHORUS 3.2 mg/dL (2.7-4.5); POTASSIUM 2.9 mmol/L (3.5-5.1); TOTAL BILIRUBIN 0.4 mg/dL (0.20-1.00)
[2019-03-24] MEDS: LOPRESSOR IV SCH ×4 (06:19→23:28)
[2019-03-24] MEDS: HUMALOG SUBQ SCH ×4 (06:19→20:31)
[2019-03-24 06:27] LABS: LYMPHS 9 % (21-51); MONO 6 % (1-9); SEGS 85 % (42-75)
--- NOTE | 2019-03-24 07:27 | EKG Report ---
Test Performed on : 03/24/2019 07:05:04 AM Test Reason : Qtc elevation Blood Pressure : / mmHG Vent. Rate : 078 BPM Atrial Rate : 078 BPM P-R Int : 160 ms QRS Dur : 088 ms QT Int : 496 ms P-R-T Axes : 050 025 050 degrees QTc Int : 565 ms Critical Test Result: Long QTc Normal sinus rhythm. T wave abnormality, consider anterior ischemia Abnormal ECG When compared with ECG of 22-MAR-2019 00:22, (Unconfirmed) Nonspecific T wave abnormality no longer evident in Inferior leads T wave inversion now evident in Anterior leads Confirmed by Alex CEDENO, Vince ([id number]) on 03/24/2019 9:03:24 AM
--- NOTE | 2019-03-24 08:01 | Diag Imaging Result Doc PS360 ---
CHEST-PORTABLE - 03/24/2019 INDICATION: dyspnea COMPARISON: 03/23/2019 FINDINGS: There has been significant decrease in the ill-defined infiltrate throughout the right lung. Stable cardiomegaly and pulmonary vascular congestion. No pneumothorax or large pleural effusion. IMPRESSION: Decrease in the extensive infiltrate or edema throughout the right lung. Electronically signed by Sony Finn 03/24/2019 7:59 AM
[2019-03-24] MEDS: ZYVOX 600 MG/D5W 600 MG/300 ML IVPB IV SCH (08:09)
[2019-03-24] MEDS: PEPCID IV SCH ×2 (08:09→20:31)
[2019-03-24] MEDS: CLINIMIX E 4.25%-5% SOLUTION 1,000 ML IV SCH (08:09)
[2019-03-24] MEDS: LEVAQUIN 750 MG/D5W 750 MG/150 ML IVPB IV SCH (08:09)
[2019-03-24] MEDS: BROVANA NEB INH SCH ×2 (08:36→19:51)
[2019-03-24] MEDS: MUCOMYST 20% INH SCH ×2 (08:36→19:51)
[2019-03-24] MEDS: POTASSIUM CHLORIDE 20 MEQ/SWI 20 MEQ/100 ML IVPB IV SCH ×2 (09:05→11:40)
[2019-03-24] MEDS ORDERED: ROCEPHIN 2 GM in NS 50 ML IV SCH (09:45)
[2019-03-24] MEDS ORDERED: POTASSIUM CHLORIDE 60 MEQ in NS 500 ML IV ONE (10:00)
[2019-03-24] MEDS ORDERED: VANCOMYCIN IV PER PHARMACY MISC SCH (10:00)
[2019-03-24] MEDS: MYCOSTATIN SUSP PO SCH ×4 (10:31→20:31)
[2019-03-24] MEDS: LASIX IV SCH (10:31)
[2019-03-24] MEDS: COZAAR PO SCH (10:31)
[2019-03-24] MEDS: MIRALAX PO SCH (10:31)
[2019-03-24] MEDS: TRESIBA FLEXTOUCH U-200 SUBQ SCH (10:41)
[2019-03-24] MEDS ORDERED: VANCOMYCIN 2,000 MG in NS 500 ML IV ONE (11:00)
--- NOTE | 2019-03-24 11:06 | PROGRESS NOTE ---
DATE: 03/24/2019 SUBJECTIVE: The patient is lying comfortable in the bed using high-flow nasal cannula. She was a little bit sleepy, but answered all of my questions appropriately. She is oriented to time, place and person. Follows commands. OBJECTIVE: Vitals: Temperature 98.9, heart rate 77, respiratory rate 22, blood pressure 166/91 and O2 saturation 93% on high flow nasal cannula. General: This is a chronically ill looking 68- year-old obese female lying in bed in no acute distress. HEENT: Head is normocephalic, atraumatic with mucous membranes dry. Neck: No JVD noted. No carotid bruits. No lymphadenopathy. Cardiovascular: S1, S2 heard. No gallops. No rubs. Regular rate and rhythm. Respiratory: Decreased breath sounds globally with prolonged respiratory phase. There are some crackles and rhonchi noted in both pulmonary bases. Patient is not using any accessory muscles or having work of breathing. Abdomen: Soft. A little bit distended but nontender to palpation. Bowel sounds present. No organomegaly. Extremities: Mild edema 1+ in both lower extremities. No clubbing or cyanosis noted. Neurological: Patient is sleepy, but is easily arousable. Patient answers all my questions. Patient moves all 4 extremities continuously. After we talked, the patient falls back to sleep. LABORATORY DATA: White cell count 17.01, hemoglobin 12.1, hematocrit 38.1 and platelets 243,000 with pH 7.46, and pC02 of 51, and PO2 71. That was on nasal cannula. Potassium is 2.9 and creatinine 1.2. AST 125. ALT 337. ASSESSMENT AND PLAN: 1. Septic shock secondary to pneumonia. The patient has streptococcal pneumonia. The patient continues to have an elevated white cell count. Dr. Curran suggested that we can try vancomycin if this patient is still having elevated white cell count. I think we will leave it up to them to decide, but I think probably that will be what we need to do. He has been on Levaquin and Zyvox, but white cell count continues to be elevated. She continues to require high-flow nasal cannula. At this point, we will continue with the same management. 2. Streptoccocal pneumonia bacteremia as we mentioned before. Most likely, we will need to change to vancomycin because the patient being on Zyvox and Levaquin has not improved her too much. 3. Encephalopathy multifactorial. Patient continues to get better. Patient is following commands and answers basic questions appropriately. We will continue to monitor. 4. Chronic obstructive pulmonary disease exacerbation. We will continue to provide breathing treatments and provide antibiotic management. 5. Hypertension. Blood pressure is under control. We will continue with same management. 6. Congestive heart failure. The patient has an ejection fraction of 30%. The patient has pulmonary edema. Currently, patient is on Lasix IV q.12 hours. Patient has been on also some amiodarone drip. Cardiology is following this patient. We will follow recommendations. 7. Diabetes mellitus type 2. We will continue with sliding scale insulin. Accu-Chek before meals and also at bedtime. 8. Acute kidney injury secondary to septic shock. Kidney function is almost back to normal. We will continue to monitor BMP. 9. Supraventricular tachycardia. Patient is being followed by Cardiology. Patient is on amiodarone drip. 10. Immunoglobulin deficiency. Patient has received 1 dose of IVIG already. 11. Hyperlipidemia. We will continue home medications. 12. Hypokalemia. We will replenish potassium. 13. Shock liver. Definitely getting much better. We will continue to monitor CMP daily. 14. Disposition. We will continue to monitor this patient closely here in the intensive care unit. cc: Eduardo Fuentes MD [facility]
[2019-03-24] MEDS ORDERED: CORDARONE PO ONE (15:39)
--- NOTE | 2019-03-24 16:11 | INFECTIOUS DISEASE PROGRESS NO ---
DATE: 03/24/2019 PRESENT ILLNESS: The patient has pneumococcal bacteremia originating from pneumococcal pneumonia. She also has an underlying immunoglobulin deficiency with an IgG of 542. The patient has oral candidiasis. She yesterday had developed a leukocytosis the exact reason why is uncertain. The patient also has developed oral candidiasis. MEDICATIONS: The patient has been switched to vancomycin. This is day 1 of treatment with that antibiotic. The patient also is on nystatin swish and swallow.. PHYSICAL EXAMINATION: Vital Signs: Temperature 99 degrees, pulse 78, respirations 21, and blood pressure 165/79. General: This is an ill-appearing elderly female. She is in no acute distress. Head/eyes/ears/nose/throat: She can hear my spoken words, and see near objects. She does not have any white patches in her mouth. Neck: No pain with movement. Lungs: The lungs have rhonchi bilaterally. Cardiovascular: Heart rate is regular. Abdomen: Soft and nontender. Neurologic: The patient is awake. She can move her extremities. There is no tremor. LABORATORY AND X-RAY: Chest x-ray shows decrease in the right lung infiltrate. IgA is 273, IgG was 542. ALT [place] 337. [place] [address], hemoglobin 12.1, and platelet count 243,000. Blood gases showed a pH of 7.46, a PO2 of 71, and pCO2 of 51. Creatinine is 1.2 GFR is 44. ASSESSMENT AND PLAN: Patient has pneumococcal bacteremia originating from pneumococcal pneumonia. She also has an immunoglobulin deficiency and oral candidiasis. Unfortunately, we were unable to use cephalosporin antibiotics in the patient because of her severe allergy to amoxicillin. The patient was on Levaquin, but she is also on a lot of other cardiac medications that will cause the prolongation of the QT interval. Therefore, we thought it would be best not to use Levaquin. The white count did go up so the patient was switched from Zyvox to vancomycin. It has been ordered for the patient to have daily CBC and CMP. COMORBIDITIES: The patient is elderly. She is a diabetic. She is obese. She has COPD. We have discovered now that she also has an immunoglobulin deficiency. cc: Fco Curran MD
--- NOTE | 2019-03-24 18:34 | PROGRESS NOTE ---
DATE: 03/24/2019 SUBJECTIVE: Patient continues without chest discomfort or shortness of breath on nasal cannula oxygen. OBJECTIVE: Vitals: Blood pressure 131/90, heart rate 84, oxygen saturation 96%. Neck: There is no significant jugular venous distention. Chest: Auscultation of chest reveals few expiratory rhonchi anteriorly. There are some inspiratory crackles in the right base. Cardiac: Reveals a regular rate and rhythm without appreciable murmur or gallop. Extremities: There is no evidence of peripheral edema. LABORATORY DATA: Includes a white blood cell count of 17.01, hematocrit 38.1, hemoglobin 12.1, platelet count 243. Sodium 138, potassium 2.9, chloride 93, carbon dioxide 30, BUN 38, creatinine 1.2, glucose 185. Chest x-ray is reviewed and demonstrates bibasilar infiltrates consistent with bibasilar pneumonia. IMPRESSION: 1. Bilateral pneumococcal pneumonia with associated sepsis. 2. Cardiomyopathy. 3. Paroxysmal ventricular tachycardia. 4. Type 2 diabetes mellitus. 5. Hypertension. 6. Hyperlipidemia. 7. Chronic obstructive pulmonary disease. RECOMMENDATIONS: 1. Transition amiodarone to oral as tolerated. We will continue amiodarone pending further overall improvement from the standpoint of her pneumonia. 2. Continue metoprolol and losartan as tolerated. 3. Ultimately patient will need evaluation of her cardiomyopathy once she is improved from standpoint of her pneumonia and sepsis. cc: Spencer Alcantara MD
[2019-03-24] MEDS ORDERED: BROVANA NEB ONE (19:21)
[2019-03-24] MEDS: CORDARONE PO SCH (20:31)
[2019-03-24] MEDS: COREG PO SCH (20:31)
[2019-03-24] MEDS: LOVENOX SUBQ SCH (23:28)
[2019-03-25] MEDS: DUONEB (A & A) INH SCH ×6 (03:48→23:31)
[2019-03-25 05:02] LABS: ALLEN TEST YES; BE 8.7 mmoll (-3.0-3.0); BLOOD TYPE ARTERIAL; HCO3-(ACT) 31.6 mmoll (20.0-26.0); METHB 0.5 % (0.0-1.5); O2(CT) 19.7 mL/dL (15.0-23.0); PO2(98.6) 76 mmHg (60-100); SAMPLE BLOOD; SAO2 95.4 % (95.0-100.0); THB 14.9 g/dL (11.5-17.4); pH(98.6) 7.44 (7.35-7.45)
[2019-03-25 05:03] LABS: MODALITY HIGH FLOW NASAL CAN; PCO2(98.6) 51 mmHg (35-45)
[2019-03-25 06:15] LABS: BASO# 0.01 X1000 (0.0-0.2); BASO% 0.1 % (0.0-0.8); HEMATOCRIT 37.9 % (37.0-47.0); LYMPH# 1.53 X1000 (1.2-3.4); LYMPH% 8.6 % (20.5-51.1); MCH 25.5 PG (27-31); MCHC 31.7 g/dL (33-37); MCV 80.5 FL (81-99); MONO# 1.31 X1000 (0.11-0.59); MONO% 7.4 % (1.7-9.3); MPV 11.1 FL (7.4-10.4); PLT 240 X1000 (130-400); RBC 4.71 XMIL (4.2-5.4); RDW 17.1 % (11.5-14.5)
[2019-03-25 06:30] LABS: ALB/GLOB RATIO 0.7; ALBUMIN 2.7 g/dL (3.5-5.0); CALCIUM 8.7 mg/dL (8.8-10.2); CREATININE 1.2 mg/dL (0.5-0.9); POTASSIUM 3.2 mmol/L (3.5-5.1); TOTAL BILIRUBIN 0.4 mg/dL (0.20-1.00); TOTAL PROTEIN 6.8 g/dL (6.3-8.3)
[2019-03-25] MEDS: HUMALOG SUBQ SCH ×4 (06:42→20:47)
[2019-03-25] MEDS: LOPRESSOR IV SCH ×4 (06:49→23:46)
[2019-03-25] MEDS ORDERED: POTASSIUM CHLORIDE 60 MEQ in NS 500 ML IV ONE (06:50)
[2019-03-25] MEDS: COREG PO SCH ×2 (08:19→20:58)
[2019-03-25] MEDS: COZAAR PO SCH (08:19)
[2019-03-25] MEDS: PEPCID IV SCH ×2 (08:19→20:59)
[2019-03-25] MEDS: MIRALAX PO SCH (08:20)
[2019-03-25] MEDS: MYCOSTATIN SUSP PO SCH ×3 (08:20→20:59)
[2019-03-25] MEDS: CORDARONE PO SCH ×2 (08:20→20:59)
[2019-03-25] MEDS: MUCOMYST 20% INH SCH ×2 (08:43→19:55)
[2019-03-25] MEDS: BROVANA NEB INH SCH ×2 (08:44→19:55)
[2019-03-25] MEDS: LASIX IV SCH (10:14)
[2019-03-25] MEDS: TRESIBA FLEXTOUCH U-200 SUBQ SCH (10:14)
[2019-03-25] MEDS ORDERED: INSULIN PEN NEEDLES ONE (10:19)
[2019-03-25] MEDS: VANCOMYCIN 1 GM/NS 1 GM/250 ML IVPB IV SCH (12:23)
--- NOTE | 2019-03-25 13:12 | PROGRESS NOTE ---
DATE: 03/25/2019 SUBJECTIVE: The patient is lying in bed. She looks more awake and alert today. She is still requiring oxygen by high-flow nasal cannula. No acute issues noted. OBJECTIVE: Vital Signs: Temperature 98.6 degrees, heart rate 65, respiratory rate 18, blood pressure 167/82, O2 saturation 94% on 40 L high-flow nasal cannula. General: This is a chronically ill-appearing, 68-year-old female lying in bed, in no acute distress. Cardiovascular: S1, S2 heard. No murmurs, gallops, or rubs. Regular rate and rhythm. Respiratory: Decreased breath sounds globally with prolonged respiratory phase. Minimal crackles and rhonchi noted in both pulmonary bases. The patient is not using any accessory muscles or having work of breathing. Abdomen: Soft, a little bit distended but nontender to palpation. Bowel sounds present with no organomegaly. Extremities: Mild 1+ pitting edema of both lower extremities. No clubbing or cyanosis noted. Neurologic: Patient is definitely more awake. He answers all of my questions. The patient moves all four extremities spontaneously. LABORATORY DATA: White cell count 17.7, hemoglobin 12.0, hematocrit 37.9, platelets 240,000. ABG shows pH 7.44 with pCO2 51, PO2 76. BMP reveals potassium of 3.2 with creatinine of 1.2. AST 94. ASSESSMENT AND PLAN: 1. Septic shock secondary to pneumonia. The patient has been off of vasopressors for the last couple days. White cell count persists to be elevated. Blood pressure is actually high in the range of 160s. We will continue to monitor this patient closely. The patient still requires oxygen by high-flow nasal cannula. Pulmonary is following this patient and we will follow their recommendations. 2. Streptococcal pneumonia bacteremia. The patient has been on Zyvox and Levaquin but this has been changed to vancomycin. Dr. Curran from Infectious Disease is following this patient and we will follow his recommendations. 3. Encephalopathy, multifactorial. The patient continues to improve. 4. Chronic obstructive pulmonary disease exacerbation. We will continue with DuoNeb every 4 hours, IV steroids as well, and antibiotics as mentioned above. 5. Hypertension. Blood pressure is a little bit elevated in 150s and 160s. We will continue to monitor. 6. Paroxysmal ventricular tachycardia with cardiomyopathy. Cardiology is following with this patient. They have changed amiodarone IV to oral. The patient continues to be on metoprolol and losartan. We will follow recommendations from them. 7. Acute kidney injury secondary to septic shock. Creatinine is almost back to normal. We will continue to monitor. 8. Immunoglobulin deficiency. Patient has been provided a dose of IVIG already. 9. Hyperlipidemia. We will continue with home medications. 10. Hypokalemia. Will provide 60 mEq of potassium IV. 11. Shock liver. Transaminase continues to improve. We will continue to monitor CMP daily. 12. Disposition. I think this patient can be transferred to PVC unit. cc: Eduardo Fuentes MD MTDD
[2019-03-25] MEDS: CLINIMIX E 4.25%-5% SOLUTION 1,000 ML IV SCH (18:42)
[2019-03-25] MEDS: LOVENOX SUBQ SCH (23:46)
--- NOTE | 2019-03-25 23:59 | INFECTIOUS DISEASE PROGRESS NO ---
DATE: 03/25/2019 PRESENT ILLNESS: Ms. Deng is being treated for a pneumococcal bacteremia and pneumonia. There is also an underlying immunoglobulin deficiency with IgG of 542. She also has a leukocytosis and an oral candidiasis. MEDICATIONS: Today is day 1 of IV vancomycin per pharmacy dosing. She is also receiving nystatin swish and swallow. The patient has received an infusion of IVIG on this admission. PHYSICAL EXAMINATION: Vital Signs: Temperature is 97.1 degrees, pulse rate 70, respiratory rate 21, blood pressure 138/78, O2 saturation is 93% on a 40% high-flow nasal cannula. General: This is a critically ill-appearing female, she is lying in bed, currently in no acute distress. HEENT: Atraumatic, normocephalic. Oral mucous membranes are pink and moist. Conjunctivae are pink. Respiratory: Lung sounds have coarse rhonchi bilaterally and diminished in the bases. No work of breathing is noted. Cardiovascular: Heart rate and rhythm are regular. Normal sinus rhythm on the monitor. Abdomen: Soft, obese and nontender to palpation. Bowel sounds are active. Neurologic: She is drowsy and lethargic. Nonverbal at this time but she will follow commands. Integumentary: Skin is warm and dry. LABORATORY AND IMAGING: Today her white count is 17.7, hemoglobin 12, platelet count 240,000. ABG with pH is 7.44, pCO2 is 51, PO2 is 76 on 40% high-flow nasal cannula. Creatinine is 1.2 with GFR 44. Total bilirubin today is 0.4, AST 94, ALT 231, alkaline phosphatase 145. ASSESSMENT AND PLAN: Ms. Deng is being treated for pneumonia as well as a pneumococcal bacteremia. Based on her sterile blood cultures, today is day 6 of treatment for the bacteremia. She does have a leukocytosis which has been persistent. Yesterday she was started on vancomycin, which we will continue at this time. She also has an oral candidiasis which has improved considerably with the nystatin swish and swallow, which we will also continue. These plans have been discussed with and recommended by Dr. Curran. COMORBIDITIES: For Ms. Deng include that she is elderly and obese with diabetes mellitus, COPD and immunoglobulin deficiency. Dictated by CAMILLA Guzman for Fco Curran MD cc: Fco Curran MD [facility]
[2019-03-26] MEDS: DUONEB (A & A) INH SCH ×5 (03:16→19:51)
[2019-03-26 04:55] LABS: ALLEN TEST YES; BE 7.5 mmoll (-3.0-3.0); BLOOD TYPE ARTERIAL; HCO3-(ACT) 30.7 mmoll (20.0-26.0); METHB 0.5 % (0.0-1.5); O2(CT) 17.4 mL/dL (15.0-23.0); O2HB 94.2 % (95.0-99.0); PCO2(98.6) 50 mmHg (35-45); PO2(98.6) 78 mmHg (60-100); SAMPLE BLOOD; SAO2 96.2 % (95.0-100.0); THB 13.1 g/dL (11.5-17.4); pH(98.6) 7.43 (7.35-7.45)
[2019-03-26 04:56] LABS: MODALITY HIGH FLOW NASAL CAN
[2019-03-26] MEDS: LOPRESSOR IV SCH ×4 (05:19→23:43)
[2019-03-26 05:52] LABS: BASO# 0.02 X1000 (0.0-0.2); BASO% 0.1 % (0.0-0.8); EOS# 0.48 X1000 (0.0-0.7); EOS% 2.6 % (0.0-10.0); HEMOGLOBIN 12.1 g/dL (12.0-16.0); IMM GRAN# 0.08 X1000 (0.0-0.04); IMM GRAN% 0.4 % (0.0-0.5); LYMPH# 1.76 X1000 (1.2-3.4); LYMPH% 9.6 % (20.5-51.1); MCV 80.6 FL (81-99); MONO# 1.45 X1000 (0.11-0.59); MONO% 7.9 % (1.7-9.3); NEUT# 14.49 X1000 (1.4-6.5); NEUT% 79.4 % (42.2-75.2); PLT 241 X1000 (130-400); RBC 4.84 XMIL (4.2-5.4); RDW 17.1 % (11.5-14.5); WBC 18.28 X1000 (4.8-10.8)
[2019-03-26 06:39] LABS: ALB/GLOB RATIO 0.7; ALBUMIN 2.9 g/dL (3.5-5.0); POTASSIUM 3.6 mmol/L (3.5-5.1); TOTAL BILIRUBIN 0.4 mg/dL (0.20-1.00); TOTAL PROTEIN 6.8 g/dL (6.3-8.3)
[2019-03-26] MEDS: HUMALOG SUBQ SCH ×4 (06:43→21:43)
--- NOTE | 2019-03-26 07:35 | PROGRESS NOTE ---
DATE: 03/25/2019 SUBJECTIVE: Patient is progressively improving. She is more awake and interactive. She denies shortness of breath or chest discomfort. She continues to require oxygen. OBJECTIVE: Blood pressure 149/66, heart rate 68, oxygen saturation 94% on high-flow nasal cannula. There is no significant jugular venous distention. Auscultation of the chest reveals minimal crackles in the bases, right greater than left. Cardiac Examination: Reveals a regular rate and rhythm without appreciable murmur, rub, or gallop. There is no evidence of peripheral edema. Laboratory Data: Includes a white blood cell count of 17.7, hematocrit 37.9, hemoglobin 12.0, platelet count 240,000. Sodium 138, potassium 3.2, chloride 94, carbon dioxide 29, BUN 43, creatinine 1.2, glucose 141. IMPRESSION: 1. Bilateral pneumococcal pneumonia with associated sepsis. Patient clinically improving. 2. Cardiomyopathy. 3. Paroxysmal ventricular tachycardia in the setting of acute severe noncardiac illness and cardiomyopathy. Patient continues in sinus rhythm on amiodarone. 4. Type 2 diabetes mellitus. 5. Hypertension. 6. Hyperlipidemia. 7. Chronic obstructive pulmonary disease. RECOMMENDATIONS: 1. Continue oral amiodarone as tolerated. 2. Continue metoprolol and losartan as tolerated. 3. Ultimately, we will re-evaluate cardiomyopathy once she has further improved from a standpoint of her pneumonia. cc: Spencer Alcantara MD
[2019-03-26] MEDS: MUCOMYST 20% INH SCH ×2 (08:44→19:51)
--- NOTE | 2019-03-26 08:44 | PROVIDER PROGRESS NOTE ---
Progress Note Pulmonary additional Note: Case assessed and full note to follow.
[2019-03-26] MEDS: CORDARONE PO SCH ×2 (09:10→21:42)
[2019-03-26] MEDS: COZAAR PO SCH ×2 (09:10→21:42)
[2019-03-26] MEDS: PEPCID IV SCH ×2 (09:10→21:42)
[2019-03-26] MEDS: LASIX IV SCH (09:10)
[2019-03-26] MEDS: CELEXA PO SCH (09:11)
[2019-03-26] MEDS: MYCOSTATIN SUSP PO SCH ×4 (09:11→21:42)
[2019-03-26] MEDS: COREG PO SCH ×2 (09:11→21:43)
[2019-03-26] MEDS: MIRALAX PO SCH (09:12)
[2019-03-26] MEDS: TRESIBA FLEXTOUCH U-200 SUBQ SCH (09:14)
[2019-03-26] MEDS ORDERED: COZAAR PO ONE (09:45)
[2019-03-26] MEDS ORDERED: COREG PO ONE (09:45)
--- NOTE | 2019-03-26 11:55 | PROGRESS NOTE ---
DATE: 03/26/2019 SUBJECTIVE: Patient is lying in bed. She is sleeping on the bed but answering my questions appropriately. She continues to require oxygen by high-flow nasal cannula. OBJECTIVE: Vitals: Temperature 97.8, heart rate 79, respiratory rate 20, blood pressure 129/87, and O2 saturation 94% on 4 L high-flow nasal cannula. General: This is a chronically ill- appearing 68-year-old female lying in bed in no acute distress. Cardiovascular: S1, S2 heard. No murmurs, gallops, or rubs. Regular rate and rhythm. Respiratory: Decreased breath sounds globally with prolonged expiratory phase and crackles noted, and rhonchi as well in both pulmonary bases. Patient not using any accessory muscles or having work of breathing. Abdomen: Soft. A little bit distended. Nontender to palpation. Bowel sounds present. No organomegaly. Extremities: 1+ mild pitting edema in both lower extremities. No clubbing or cyanosis noted. Neurological: Patient is awake. Answered questions appropriately. Moves all 4 extremities spontaneously. LABORATORY DATA: White cell count 18.2, hemoglobin 12.1, hematocrit 39, and platelets 241,000 with BMP remarkable for creatinine of 1.0. Glucose 163. ASSESSMENT AND PLAN: 1. Septic shock secondary to pneumonia. The patient continues to be off of vasopressors. White cell count continues to be elevated. We have changed the antibiotics. We will continue to monitor. The patient continues to require oxygen by high-flow nasal cannula. I have instructed the nurse to try to wean off oxygen on her. Pulmonary following this patient. We will follow recommendations. 2. Streptococcal pneumonia bacteremia. The patient is on vancomycin day #2. White cell count continues to be high. Oxygen needs are still elevated. We will continue to monitor. Dr. Curran from infectious disease is following this patient. 3. Encephalopathy. I think this condition continues to improve. 4. Chronic obstructive pulmonary disease exacerbation. We will continue with DuoNeb every 4 hours, IV steroids, and antibiotics as we mentioned above. 5. Hypertension. Blood pressure continues to be elevated now in the range of 200 and 190 so at this point I will decrease the doses of losartan to 50 mg p.o. b.i.d. Also, we will increase the doses of Coreg to 12.5 mg p.o. b.i.d. 6. Paroxysmal ventricular tachycardia. Patient continues to be on amiodarone oral. Cardiology following this patient and plan to do further workup once this patient is feeling better from his current medical condition. 7. Acute kidney injury. Creatinine is almost back to normal. We will continue to monitor. 8. Immunoglobulin deficiency. Aware. Patient has been provided doses of IVIG. 9. Hyperlipidemia. We will continue home medications. 10. Hypokalemia resolved. 11. Shock liver. Transaminase continues to improve. We will continue to monitor. 12. Disposition: We continue to await for a bed in the PVC unit. cc: Eduardo Fuentes MD [facility]
[2019-03-26] MEDS: VANCOMYCIN 1 GM/NS 1 GM/250 ML IVPB IV SCH (12:23)
[2019-03-26] MEDS: CLINIMIX E 4.25%-5% SOLUTION 1,000 ML IV SCH (16:43)
[2019-03-26] MEDS: BROVANA NEB INH SCH ×2 (16:48→19:51)
[2019-03-26] MEDS: SODIUM CHLORIDE 0.9% INJ SCH (21:42)
--- NOTE | 2019-03-26 21:43 | INFECTIOUS DISEASE PROGRESS NO ---
DATE: 03/26/2019 PRESENT ILLNESS: The patient has pneumococcal bacteremia and pneumonia. She also had an immunoglobulin deficiency. The patient finally also has oral candidiasis. The patient had been having leukocytosis, and 2 days ago vancomycin was started. MEDICATIONS: As mentioned above, this is day 2 of treatment with vancomycin. The patient is also receiving nystatin swish and swallow for the oral candidiasis. PHYSICAL EXAMINATION: Vital Signs: Temperature is 97.5 degrees, pulse 79, respirations 21, blood pressure is 143/94. General: This is an ill-appearing, elderly female. She is in no acute distress. Head, eyes, ears, nose, throat: She can hear my spoken words and see near objects. I did not see any white coating on her tongue. Neck: No pain with movement. Lungs: Clear to auscultation. Cardiovascular: Heart rate is regular. Abdomen: Soft and nontender. LAB AND X-RAY: CBC shows a white count of 18,280, hemoglobin 12.1, and platelet count 241,000. Blood gases show a pH of 7.43, a PO2 of 78, and a pCO2 of 50. Creatinine is 1 and GFR is 55. ALT is 164. There is no new radiographic study today. ASSESSMENT AND PLAN: The patient has pneumococcal pneumonia and bacteremia. The patient's bacteremia has cleared. The patient's pneumonia still persists. Also, the patient has leukocytosis. My plan is to continue with vancomycin because this is only the second day of treatment with it, and tomorrow the CBC and chest x-ray will be repeated. The patient's immunoglobulin deficiency has been treated during this admission also. COMORBIDITIES: The patient is elderly and she has diabetes mellitus, chronic obstructive pulmonary disease, and an immunoglobulin deficiency. cc: Fco Curran MD
[2019-03-26] MEDS: LOVENOX SUBQ SCH (23:43)
[2019-03-27] MEDS: DUONEB (A & A) INH SCH ×7 (00:07→23:43)
[2019-03-27 04:27] LABS: ALLEN TEST YES; BE 9.7 mmoll (-3.0-3.0); BLOOD TYPE ARTERIAL; HCO3-(ACT) 32.4 mmoll (20.0-26.0); METHB 0.7 % (0.0-1.5); O2(CT) 16.9 mL/dL (15.0-23.0); O2HB 93.8 % (95.0-99.0); PCO2(98.6) 45 mmHg (35-45); PO2(98.6) 76 mmHg (60-100); SAMPLE BLOOD; THB 12.8 g/dL (11.5-17.4); pH(98.6) 7.49 (7.35-7.45)
[2019-03-27 04:30] LABS: MODALITY CANNULA
[2019-03-27] MEDS: TYLENOL PO PRN ×2 (04:33→14:40)
[2019-03-27] MEDS: LOPRESSOR IV SCH ×3 (04:33→16:43)
[2019-03-27] MEDS: HUMALOG SUBQ SCH ×3 (06:19→16:22)
[2019-03-27 06:32] LABS: ALB/GLOB RATIO 0.6; ALBUMIN 2.5 g/dL (3.5-5.0); CALCIUM 8.9 mg/dL (8.8-10.2); POTASSIUM 3.6 mmol/L (3.5-5.1); TOTAL BILIRUBIN 0.47 mg/dL (0.20-1.00); TOTAL PROTEIN 6.4 g/dL (6.3-8.3)
[2019-03-27 06:46] LABS: BASO# 0.01 X1000 (0.0-0.2); EOS# 0.33 X1000 (0.0-0.7); EOS% 1.6 % (0.0-10.0); HEMATOCRIT 38.4 % (37.0-47.0); HEMOGLOBIN 12.1 g/dL (12.0-16.0); IMM GRAN# 0.08 X1000 (0.0-0.04); IMM GRAN% 0.4 % (0.0-0.5); LYMPH# 1.94 X1000 (1.2-3.4); LYMPH% 9.3 % (20.5-51.1); MCH 25.5 PG (27-31); MCHC 31.5 g/dL (33-37); MCV 80.8 FL (81-99); MONO# 2.01 X1000 (0.11-0.59); MONO% 9.6 % (1.7-9.3); MPV 11.1 FL (7.4-10.4); NEUT# 16.56 X1000 (1.4-6.5); NEUT% 79.1 % (42.2-75.2); PLT 217 X1000 (130-400); RBC 4.75 XMIL (4.2-5.4); RDW 17.1 % (11.5-14.5); WBC 20.93 X1000 (4.8-10.8)
--- NOTE | 2019-03-27 07:02 | Diag Imaging Result Doc PS360 ---
CHEST-1 VIEW - 03/27/2019 INDICATION: pneumonia COMPARISON: 03/24/2019 FINDINGS: Stable mild cardiomegaly. There is improvement in the pulmonary vascular congestion. There is a stable focal infiltrate at the right hilum. No pneumothorax or significant pleural effusion. IMPRESSION: Very little change from prior. Right perihilar infiltrate compatible with pneumonia. Electronically signed by Sony Finn 03/27/2019 6:59 AM
[2019-03-27 07:31] LABS: BANDS 2 % (0-1); LYMPHS 12 % (21-51); MONO 8 % (1-9); SEGS 78 % (42-75)
[2019-03-27] MEDS: MUCOMYST 20% INH SCH ×2 (08:07→19:43)
[2019-03-27] MEDS: CORDARONE PO SCH (08:32)
[2019-03-27] MEDS: COREG PO SCH ×2 (08:32→20:49)
[2019-03-27] MEDS: MYCOSTATIN SUSP PO SCH ×4 (08:33→20:49)
[2019-03-27] MEDS: MIRALAX PO SCH (08:33)
[2019-03-27] MEDS: COZAAR PO SCH ×2 (08:33→20:50)
[2019-03-27] MEDS: PEPCID IV SCH ×2 (08:33→20:50)
[2019-03-27] MEDS: CELEXA PO SCH (08:35)
[2019-03-27] MEDS: LASIX IV SCH (10:41)
[2019-03-27] MEDS: TRESIBA FLEXTOUCH U-200 SUBQ SCH (10:41)
[2019-03-27] MEDS: BROVANA NEB INH SCH ×2 (11:07→19:43)
--- NOTE | 2019-03-27 11:13 | Diag Imaging Result Doc PS360 ---
EXAM: CT THORAX/ABD/PELVIS W/O CON 03/27/2019 HISTORY: pneumonia, increasing WBC TECHNIQUE: This exam was performed using automated exposure control, adjustment of mA or kV according to patient size, and/or use of iterative reconstruction technique. COMMENT: The current study is are compared with the previous thoracic examination of 03/18/2019 and the abdominal study of 09/05/2013. Thorax: The precarinal node which was demonstrated on the previous study has diminished slightly in size now measuring 2.3 cm versus 2.8 cm previously. There is a small amount of pericardial fluid which is similar in appearance to the previous study. The pleural effusions which were present previously have diminished. There are patchy opacities in the upper lobes and middle lobe with denser consolidation posteriorly in the right lower lobe. This is slightly more extensive medially than on the previous study. There is some decrease in the interstitial opacity seen in the superior segment however. Consolidation is also present in the inferior lingula. The regional skeleton is stable in appearance. Abdomen/pelvis: No intravenous contrast was administered, however the patient did receive oral contrast. There is some layering of dense material present in the gallbladder. This was not apparent on 09/05/2013. This may represent small stones or milk of calcium bile. The spleen and adrenal glands are not enlarged. There is no evidence of nephrolithiasis or hydronephrosis. There is some cortical scarring present in the right kidney which is apparently worse than on the previous examination. There is contrast in the colon. No evidence of bowel obstruction is present. The abdominal aorta is not distended. The appendix is normal in appearance. There is a 2.7 cm right ovarian cyst. The uterus is surgically absent. There is a Ribeiro catheter in the bladder. There is some stool and fluid in the rectum. There is diverticulosis in the sigmoid colon without evidence of active diverticulitis. IMPRESSION: Persistent right lower lobe pneumonia. Improved mediastinal adenopathy. Cholelithiasis, otherwise no evidence of acute disease in the abdomen or pelvis. Electronically signed by Miller De Oliveira 03/27/2019 11:11 AM
--- NOTE | 2019-03-27 14:51 | PROGRESS NOTE ---
DATE: 03/27/2019 SUBJECTIVE: The patient reports breathing better. Denies any shortness of breath. Her oxygen requirements are getting better. OBJECTIVE: Vital Signs: Temperature 97.7 degrees, heart rate 69, respiratory rate 20, blood pressure 124/60, and O2 saturation 97% on 3 L nasal cannula. General: This is a 68-year-old female lying in bed in no acute distress. Chronically ill-looking. Cardiovascular: S1, S2 heard. No murmurs, gallops, or rubs. Regular rate and rhythm. Respiratory: Decreased breath sounds globally with prolonged expiratory phase and crackles noted still in both pulmonary bases. Patient is not using any accessory muscles or having work of breathing. Abdomen: Soft. A little bit distended. Nontender to palpation. Bowel sounds present. No organomegaly. Extremities: 1+ pitting edema in both lower extremities. No clubbing or cyanosis noted. Neurological: Patient is awake, and answers questions appropriately. Moves all 4 extremities spontaneously. Reportedly, a little bit sleepy this morning. LABORATORY DATA: White cell count 20.33, hemoglobin 12.1, hematocrit 38.4, and platelets 217,000. ABG shows pH 7.49, with pCO2 of 45, PO2 76. BMP: Creatinine 1.0 with BUN 45 and blood sugar 200. ASSESSMENT AND PLAN: 1. Severe sepsis secondary to pneumonia. White cell count continues to get higher despite changing antibiotics. Her oxygen requirements are getting better though. At this point, Dr. Curran from infectious disease has decided to do a CT of thorax, abdomen, and pelvis to see any possible source of infection. We will follow recommendations. 2. Streptococcal pneumonia bacteremia. Patient is on vancomycin day #3, but white cell count continues to be higher. We will do CT scan of abdomen, pelvis and thorax as we mentioned above. 3. Encephalopathy. That condition continues to improve. 4. Chronic obstructive pulmonary disease exacerbation. We will continue with DuoNeb every 4 hours, IV steroids and antibiotics as mentioned above. 5. Hypertension. Blood pressure has been much better controlled after we made some changes to her blood pressure medications. Currently, this patient is receiving losartan 50 mg p.o. b.i.d. and Coreg 12.5 mg p.o. b.i.d. 6. Paroxysmal ventricular tachycardia. We will continue with amiodarone by mouth. 7. Acute kidney injury resolved. 8. Immunoglobulin deficiency aware. Patient has received 1 dose of IVIG while she was here in the hospital. 9. Hyperlipidemia. We will continue home medications. 10. Hypokalemia resolved. 11. Shock liver. Transaminase continues to improve. We will continue to check CMP daily. 12. Disposition: We will continue to monitor this patient here in the PVCU unit, and we will see what that CT of thorax of abdomen and pelvis shows. cc: Eduardo Fuentes MD
[2019-03-27] MEDS: CLINIMIX E 4.25%-5% SOLUTION 1,000 ML IV SCH (16:14)
[2019-03-27] MEDS: VANCOMYCIN 1,350 MG in NS 250 ML IV SCH (16:14)
--- NOTE | 2019-03-27 17:54 | INFECTIOUS DISEASE PROGRESS NO ---
DATE: 03/27/2019 PRESENT ILLNESS: The patient has the following problems. She had a pneumococcal bacteremia and pneumonia. The bacteremia is clearing. The pneumonia still remains. She has an immunoglobulin deficiency for which she received IVIG. The patient also has developed oral candidiasis for which she is on nystatin swish and swallow. Most recently, her white blood cell count is increasing the etiology of which is uncertain to me. MEDICATIONS: This is day 3 of treatment with vancomycin and altogether day 8 of treatment with antibiotics with day 1 being the first day that the repeat blood cultures were sterile. The patient also is on nystatin for her oral candidiasis. PHYSICAL EXAMINATION: Vital Signs: Temperature is 97.6 degrees, pulse 56, respirations 18, blood pressure is 125/54. General: This is an ill-appearing elderly female. She is lethargic but she is in no acute distress. Head/eyes/ears/nose/throat: She can hear my spoken words and see near objects. She does not have any white patches in her mouth. Neck: No stiffness. Lungs: Clear to auscultation. Cardiovascular: Heart rate is regular. Abdomen: Soft and nontender. Neurologic: The patient is sleepy but she does answer questions. She moved her extremities to request. LAB AND X-RAY: Chest x-ray shows stable right perihilar infiltrate. Blood gases show a pH of 7.49, a PO2 of 76, and a pCO2 of 45. Creatinine is 1. GFR is 55. Repeat blood cultures are negative. Urine culture is negative. CBC shows the white count now is up to 20,930, hemoglobin 12.1, and platelet count 217,000. ASSESSMENT AND PLAN: As mentioned above, the patient has pneumococcal bacteremia both of which are being treated now with vancomycin. She has oral candidiasis for which she is receiving nystatin and she had a low IgG level for which she received intravenous immunoglobulin. The patient, as mentioned above, continues to have increase in her leukocytosis. Because of this, I have ordered a CT scan of the thorax, abdomen and pelvis. I have put on there that oral contrast should be given but not IV contrast. COMORBIDITIES: The patient is elderly. She is a diabetic and she has chronic obstructive pulmonary disease and we found out during this admission she has an immunoglobulin deficiency. cc: Fco Curran MD
--- NOTE | 2019-03-27 21:50 | PROGRESS NOTE ---
DATE: 03/27/2019 SUBJECTIVE: Patient reports feeling comfortable. She denies shortness of breath or chest discomfort on supplemental oxygen per nasal cannula. She continues in steady sinus rhythm. OBJECTIVE: Vital signs: Blood pressure 102/60, heart rate 76, oxygen saturation 92% to 97% on nasal cannula oxygen at 3 L/minute. Neck: There is no significant jugular venous distention. Chest: Fairly clear to auscultation. Cardiac Exam: Reveals a regular rate and rhythm without appreciable murmur or gallop. Extremities: Without edema. LABORATORY DATA: Includes a white blood cell count of 20.93, hematocrit 38.4, hemoglobin 12.1, platelet count 217,000, sodium 139, potassium 3.6, chloride 96, carbon dioxide 29, BUN 45, creatinine 1.0, glucose 200, magnesium 2.3. IMPRESSION: 1. Bilateral pneumococcal pneumonia with associated bacteremia versus sepsis. Patient is quite ill on presentation but is clinically improving. 2. Cardiomyopathy. 3. Paroxysmal ventricular tachycardia episodes in the setting of acute severe noncardiac illness and cardiomyopathy. The patient continues in sinus rhythm on amiodarone. 4. Type 2 diabetes mellitus. 5. Hypertension. 6. Hyperlipidemia. 7. Chronic obstructive pulmonary disease. RECOMMENDATIONS: 1. Discontinue amiodarone and observe cardiac rhythm. 2. Continue beta tyron and losartan as tolerated. 3. Repeat echocardiography as patient clinically improves. cc: Spencer Alcantara MD
[2019-03-28] MEDS: LOPRESSOR IV SCH ×5 (00:36→16:42)
[2019-03-28] MEDS: LOVENOX SUBQ SCH (00:37)
[2019-03-28] MEDS: HUMALOG SUBQ SCH ×5 (00:39→21:16)
[2019-03-28] MEDS: DUONEB (A & A) INH SCH ×6 (03:20→23:30)
[2019-03-28 05:34] LABS: ALLEN TEST YES; BE 10.6 mmoll (-3.0-3.0); BLOOD TYPE ARTERIAL; O2(CT) 16.5 mL/dL (15.0-23.0); O2HB 90.7 % (95.0-99.0); PCO2(98.6) 45 mmHg (35-45); PO2(98.6) 66 mmHg (60-100); SAMPLE BLOOD; SAO2 93.3 % (95.0-100.0); THB 12.9 g/dL (11.5-17.4)
[2019-03-28 05:35] LABS: MODALITY ROOM AIR
[2019-03-28 06:18] LABS: BASO# 0.01 X1000 (0.0-0.2); BASO% 0.1 % (0.0-0.8); EOS# 0.22 X1000 (0.0-0.7); EOS% 1.1 % (0.0-10.0); IMM GRAN# 0.06 X1000 (0.0-0.04); IMM GRAN% 0.3 % (0.0-0.5); LYMPH# 1.51 X1000 (1.2-3.4); LYMPH% 7.6 % (20.5-51.1); MCH 25.2 PG (27-31); MCHC 30.8 g/dL (33-37); MCV 81.8 FL (81-99); MONO# 2.03 X1000 (0.11-0.59); MONO% 10.2 % (1.7-9.3); MPV 11.1 FL (7.4-10.4); NEUT# 16.08 X1000 (1.4-6.5); NEUT% 80.7 % (42.2-75.2); PLT 215 X1000 (130-400); RBC 4.77 XMIL (4.2-5.4); WBC 19.91 X1000 (4.8-10.8)
[2019-03-28 06:55] LABS: ALB/GLOB RATIO 0.7; ALBUMIN 2.6 g/dL (3.5-5.0); CALCIUM 8.9 mg/dL (8.8-10.2); POTASSIUM 3.6 mmol/L (3.5-5.1); TOTAL BILIRUBIN 0.42 mg/dL (0.20-1.00); TOTAL PROTEIN 6.4 g/dL (6.3-8.3)
[2019-03-28] MEDS: BROVANA NEB INH SCH ×2 (07:44→20:10)
[2019-03-28] MEDS: MUCOMYST 20% INH SCH ×2 (07:44→20:10)
[2019-03-28] MEDS: LASIX IV SCH (10:08)
[2019-03-28] MEDS: COREG PO SCH ×3 (10:08→20:42)
[2019-03-28] MEDS: MIRALAX PO SCH (10:08)
[2019-03-28] MEDS: MYCOSTATIN SUSP PO SCH ×4 (10:08→20:35)
[2019-03-28] MEDS: TRESIBA FLEXTOUCH U-200 SUBQ SCH (10:09)
[2019-03-28] MEDS: PEPCID IV SCH ×2 (10:09→20:31)
[2019-03-28] MEDS: COZAAR PO SCH ×3 (10:09→20:43)
[2019-03-28] MEDS: CELEXA PO SCH (10:09)
[2019-03-28] MEDS: CLINIMIX E 4.25%-5% SOLUTION 1,000 ML IV SCH (16:39)
[2019-03-28] MEDS: VANCOMYCIN 1,350 MG in NS 250 ML IV SCH (16:40)
--- NOTE | 2019-03-28 20:13 | PROGRESS NOTE ---
DATE: 03/28/2019 SUBJECTIVE: The patient reports breathing much better. She is more awake and alert. She denies any shortness of breath. Her O2 requirements are definitely getting much lower. OBJECTIVE: Vital Signs: Temperature 98.7, heart rate 79, respiratory rate 22, blood pressure 130/51, O2 saturation 98% on 2 L nasal cannula. General: This is a [id number], 68- year-old female lying in bed in no acute distress. Cardiovascular: S1, S2 heard. No murmurs, gallops, or rubs. Regular rate and rhythm. Respiratory: Decreased breath sounds globally with prolonged respiratory phase and crackles noted still in both pulmonary bases. Patient not using any accessory muscles or having work of breathing. Abdomen: Soft. A little bit distended but nontender to palpation. Bowel sounds present. No organomegaly. Extremities: There is 1+ pitting edema in both lower extremities. No clubbing or cyanosis noted. Neurological: Patient is awake and alert. Moves 4 extremities. LABORATORY DATA: White cell count 19.91, hemoglobin 12.0, hematocrit 39.0, platelets 215. ABG that shows pH of 7.50 with pCO2 of 45. pO2 of 66 and normal creatinine. Chest, abdomen and pelvis CT showed persistent right lower lobe pneumonia with improvement in mediastinal adenopathy, cholelithiasis,otherwise no evidence of acute disease in the abdomen and pelvis. ASSESSMENT/PLAN: 1. Severe sepsis secondary to right lower lobe pneumonia. White cell count continues to be high. Dr. Curran has ordered a CT of the chest, abdomen and pelvis with results as above. At this point, patient is on vancomycin. We will continue with the same management. 2. Streptococcal pneumonia bacteremia. We will continue with vancomycin, day number 4. Off this medication, white cell count is still pretty much high. Will leave the decision to change antibiotics to Dr. Curran. 3. Encephalopathy, resolved. 4. Chronic obstructive pulmonary disease exacerbation. We will continue with IV steroids and DuoNeb every 4 hours. 5. Hypertension. Blood pressure is well controlled. We will continue with current management, in this case, losartan and Coreg. 6. Paroxysmal ventricular tachycardia that was secondary to his pneumonia. Amiodarone has been stopped by Cardiology. 7. Acute kidney injury, resolved. 8. Immunoglobulin deficiency. Aware. Patient has received 1 dose of IVIG while in the hospital. 9. Hyperlipidemia. We will continue home medication. 10. Hypokalemia, resolved. 11. Shock liver. Transaminase continues to improve daily. We will continue to check comprehensive metabolic panel daily. 12. Disposition. At this point, the patient is feeling much better. We will continue to monitor this patient closely. cc: Eduardo Fuentes MD
[2019-03-28] MEDS ORDERED: BROVANA NEB ONE (20:24)
[2019-03-29] MEDS: LOPRESSOR IV SCH ×6 (00:07→23:26)
[2019-03-29] MEDS: LOVENOX SUBQ SCH ×2 (00:07→23:22)
[2019-03-29] MEDS: DUONEB (A & A) INH SCH ×5 (03:31→23:19)
[2019-03-29 06:39] LABS: BASO# 0.02 X1000 (0.0-0.2); BASO% 0.1 % (0.0-0.8); EOS# 0.17 X1000 (0.0-0.7); EOS% 1.2 % (0.0-10.0); HEMATOCRIT 36.4 % (37.0-47.0); HEMOGLOBIN 11.2 g/dL (12.0-16.0); IMM GRAN# 0.04 X1000 (0.0-0.04); IMM GRAN% 0.3 % (0.0-0.5); LYMPH% 11.5 % (20.5-51.1); MCH 24.9 PG (27-31); MCHC 30.8 g/dL (33-37); MCV 81.1 FL (81-99); MONO# 1.69 X1000 (0.11-0.59); MONO% 12.1 % (1.7-9.3); MPV 11.6 FL (7.4-10.4); NEUT# 10.45 X1000 (1.4-6.5); NEUT% 74.8 % (42.2-75.2); PLT 202 X1000 (130-400); RBC 4.49 XMIL (4.2-5.4); RDW 16.8 % (11.5-14.5); WBC 13.97 X1000 (4.8-10.8)
[2019-03-29] MEDS: HUMALOG SUBQ SCH ×4 (06:47→20:50)
[2019-03-29 07:10] LABS: ALB/GLOB RATIO 0.7; ALBUMIN 2.5 g/dL (3.5-5.0); CALCIUM 9.3 mg/dL (8.8-10.2); CREATININE 1.1 mg/dL (0.5-0.9); POTASSIUM 3.7 mmol/L (3.5-5.1); TOTAL BILIRUBIN 0.37 mg/dL (0.20-1.00); TOTAL PROTEIN 6.1 g/dL (6.3-8.3)
[2019-03-29] MEDS ORDERED: INSULIN PEN NEEDLES ONE (07:17)
[2019-03-29] MEDS: COZAAR PO SCH ×2 (09:20→20:56)
[2019-03-29] MEDS: PEPCID IV SCH ×2 (09:20→20:49)
[2019-03-29] MEDS: COREG PO SCH ×2 (09:21→20:57)
[2019-03-29] MEDS: CELEXA PO SCH (09:21)
[2019-03-29] MEDS: MYCOSTATIN SUSP PO SCH ×5 (09:21→17:00)
[2019-03-29] MEDS: LASIX IV SCH (09:21)
[2019-03-29] MEDS: MIRALAX PO SCH (09:21)
[2019-03-29] MEDS: TRESIBA FLEXTOUCH U-200 SUBQ SCH (09:22)
[2019-03-29] MEDS: MUCOMYST 20% INH SCH ×2 (11:22→19:14)
--- NOTE | 2019-03-29 15:47 | PROGRESS NOTE ---
DATE: 03/29/2019 SUBJECTIVE: The patient reports feeling much better. Reports breathing better. OBJECTIVE: Vital Signs: Temperature 98.8 degrees, heart rate 65, respiratory rate 20, blood pressure 120/60. O2 saturation 95% on 3 L nasal cannula. General: This is a chronically ill- appearing, 68-year-old female lying in bed, in no acute distress. Cardiovascular: S1, S2 heard. No murmurs, gallops, or rubs. Regular rate and rhythm. Respiratory: Decreased breath sounds globally with minimal crackles noted still in both pulmonary bases. Patient not using any accessory muscles or having work of breathing. Abdomen: Soft, a little bit distended but nontender to palpation. Bowel sounds present. No organomegaly. Extremities: There is 1+ pedal edema in both lower extremities. No clubbing or cyanosis noted. Neurological: Patient is alert and oriented x3. Moves 4 extremities. LABORATORY DATA: Reviewed. ASSESSMENT AND PLAN: 1. Severe sepsis secondary to right lower lobe pneumonia. White cell count finally started to get better. Currently patient is on vancomycin. Dr. Curran of infectious disease following this patient. We will follow recommendation. 2. Streptococcal pneumonia bacteremia. We will continue with vancomycin as per directed by Infectious Disease. 3. Encephalopathy, resolved. 4. Chronic obstructive pulmonary disease exacerbation. We will continue with IV steroids and DuoNeb every 4 hours. 5. Hypertension. Blood pressure is well controlled. We will continue with current management. 6. Paroxysmal ventricular tachycardia secondary to her pneumonia, resolved. 7. Acute kidney injury, resolved. 8. Immunoglobulin deficiency. Aware. 9. Hyperlipidemia. We will continue with statins. 10. Hypokalemia, resolved. 11. Shock liver. Transaminase continues to improve on a daily basis. We will continue to check BMP daily. 12. Disposition. I think this patient is definitely much better, medically stable. At this point, we will start looking for a rehab bed for her. cc: Eduardo Fuentes MD
[2019-03-29] MEDS: BROVANA NEB INH SCH ×2 (16:11→19:14)
[2019-03-29] MEDS: CLINIMIX E 4.25%-5% SOLUTION 1,000 ML IV SCH (16:29)
[2019-03-29] MEDS: VANCOMYCIN 1,350 MG in NS 250 ML IV SCH (16:29)
[2019-03-29] MEDS: TYLENOL PO PRN (17:50)
[2019-03-29] MEDS ORDERED: BROVANA NEB ONE (19:22)
[2019-03-30] MEDS: MYCOSTATIN SUSP PO SCH ×5 (00:31→22:09)
[2019-03-30] MEDS ORDERED: KLOR-CON PO PRN ×2 (01:19)
[2019-03-30] MEDS ORDERED: MAG-OX PO PRN ×2 (01:26)
[2019-03-30] MEDS ORDERED: POTASSIUM CHLORIDE 20 MEQ/SWI 20 MEQ/100 ML IVPB IV PRN (01:51)
[2019-03-30] MEDS ORDERED: MAGNESIUM SULFATE 2 GM/S.W.I. 2 GM/50 ML IVPB IV PRN (02:00)
[2019-03-30] MEDS ORDERED: MAGNESIUM SULFATE 4 GM/S.W.I. 4 GM/100 ML IVPB IV PRN (02:00)
[2019-03-30] MEDS: LOPRESSOR IV SCH ×4 (04:24→18:11)
[2019-03-30] MEDS: DUONEB (A & A) INH SCH ×5 (04:36→23:10)
[2019-03-30] MEDS: HUMALOG SUBQ SCH ×4 (06:46→22:10)
[2019-03-30 07:11] LABS: BASO# 0.02 X1000 (0.0-0.2); BASO% 0.2 % (0.0-0.8); EOS# 0.09 X1000 (0.0-0.7); EOS% 0.9 % (0.0-10.0); HEMOGLOBIN 11.2 g/dL (12.0-16.0); LYMPH% 15.7 % (20.5-51.1); MCH 25.5 PG (27-31); MCHC 31.1 g/dL (33-37); MONO# 1.05 X1000 (0.11-0.59); MONO% 10.3 % (1.7-9.3); MPV 11.3 FL (7.4-10.4); NEUT# 7.46 X1000 (1.4-6.5); NEUT% 72.9 % (42.2-75.2); PLT 200 X1000 (130-400); RBC 4.39 XMIL (4.2-5.4); RDW 16.7 % (11.5-14.5); WBC 10.22 X1000 (4.8-10.8)
[2019-03-30 07:34] LABS: ALB/GLOB RATIO 0.7; ALBUMIN 2.5 g/dL (3.5-5.0); CALCIUM 9.2 mg/dL (8.8-10.2); POTASSIUM 4.1 mmol/L (3.5-5.1); TOTAL BILIRUBIN 0.35 mg/dL (0.20-1.00); TOTAL PROTEIN 6.1 g/dL (6.3-8.3)
[2019-03-30] MEDS: COZAAR PO SCH ×2 (08:07→23:53)
[2019-03-30] MEDS: CELEXA PO SCH (08:07)
[2019-03-30] MEDS: COREG PO SCH ×2 (08:08→22:09)
[2019-03-30] MEDS: PEPCID IV SCH ×2 (08:08→23:57)
[2019-03-30] MEDS: MIRALAX PO SCH (08:09)
[2019-03-30] MEDS: TRESIBA FLEXTOUCH U-200 SUBQ SCH (08:09)
[2019-03-30] MEDS: MUCOMYST 20% INH SCH ×2 (08:36→23:13)
[2019-03-30] MEDS: BROVANA NEB INH SCH ×2 (08:37→23:14)
[2019-03-30] MEDS: LASIX IV SCH (09:14)
--- NOTE | 2019-03-30 12:37 | PROGRESS NOTE ---
DATE: 03/30/2019 SUBJECTIVE: The patient reports feeling fine. Sitting in the chair. No complaints. No shortness of breath. OBJECTIVE: Vital Signs: Temperature 97.9, heart rate 74, respiratory rate 20, blood pressure 102/40, O2 saturation 96% on 3 L nasal cannula. General: This is a chronically ill-appearing, 68- year-old, female, lying in bed in no acute distress. Cardiovascular: S1, S2 heard. No murmurs, gallops, or rubs. Regular rate and rhythm. Respiratory: Decreased breath sounds globally with minimal crackles noted in both pulmonary bases. The patient is not using any accessory muscles or having work of breathing. Abdomen: Soft, nontender to palpation. Bowel sounds present. No organomegaly. Extremities: There is 1+ pitting edema in both lower extremities. No clubbing or cyanosis noted. Neurological: The patient is alert and oriented x3. Moves all 4 extremities. LABORATORY DATA: Reviewed. ASSESSMENT AND PLAN: 1. Severe sepsis secondary to right lower lobe pneumonia. White cell count finally came back to normal. Currently, this patient is on vancomycin, and Dr. Curran from Infectious Disease is following this patient. Will follow recommendations. 2. Streptococcal pneumonia bacteremia. Will continue with antibiotics as above. 3. Encephalopathy, resolved. 4. Chronic obstructive pulmonary disease exacerbation. Will continue with DuoNebs every 4 hours, and the patient also has been on intravenous steroids, but those have been stopped. Will continue with the same management. 5. Hypertension. Blood pressure is under control. Will continue with the same medications. 6. Paroxysmal ventricular tachycardia secondary to pneumonia, resolved. 7. Acute kidney injury, resolved. 8. Immunoglobulin deficiency. Aware. The patient has been given IgG while he was here in the hospital. 9. Hyperlipidemia. Will continue with the statin. 10. Hypokalemia, resolved. 11. Shock liver. Transaminase continues to improve. Will continue to monitor. 12. Disposition. This patient is clinically stable. According to Infectious Disease, probably he will require a few more days of intravenous vancomycin. We are awaiting rehab bed. cc: MD LUKE Berger
--- NOTE | 2019-03-30 13:45 | ECHO REPORT ---
ORDER DATE: 03/30/2019 INDICATION: Reduced LV function. FINDINGS: 1. This is a limited study. No Doppler evaluation was performed. 2. The right ventricle appears normal in size and function. 3. No mitral prolapse. 4. Normal LV size with an end-diastolic dimension of 3.9 cm. Mild left ventricular hypertrophy with a posterior and interventricular septal wall thickness 1.2 cm each. The LV systolic function appears to be normal with an estimated ejection fraction of 60%. Optison contrast was used on this study. It does not seem to demonstrate any clear evidence of segmental wall motion abnormalities. 5. Aortic valve opens well. 6. No pericardial effusion identified. cc: MD Spencer Kirk MD
--- NOTE | 2019-03-30 15:10 | INFECTIOUS DISEASE PROGRESS NO ---
DATE: 03/30/2019 PRESENT ILLNESS: The patient has the following problems. 1. Pneumococcal bacteremia. 2. Presumed pneumococcal pneumonia. 3. An immunoglobulin deficiency. 4. Oral candidiasis. MEDICATIONS: This is day 11 of treatment with antibiotics currently the patient is on vancomycin to treat the pneumococcal bacteremia and pneumonia. The patient has received IVIG to get back to ignacio her IgG level. For the patient's oral candidiasis she is on nystatin. PHYSICAL EXAMINATION: Vital Signs: Temperature is 98.9 degrees, pulse 72, respirations 18, blood pressure is 114/49. General: This is an ill-appearing elderly female. She is lethargic and somewhat confused. Head, eyes, Ears, Nose and Throat: She can hear my spoken words and see near objects. She does not have any white patches in her mouth. Neck: No movement with pain. Lungs: Clear to auscultation. Cardiovascular: Regular heart rate. Abdomen: Soft and nontender. Neurologic: Patient is awake. She can move her extremities. There is no tremor. LAB AND X-RAY: There is no new radiographic study today. CBC shows a white count of 10,220, hemoglobin 11.2, platelet count 200,000. Creatinine is 1. GFR is 55. AST and ALT are 143. CT scan of the chest previously showed right lower lobe pneumonia. ASSESSMENT AND PLAN: The patient is going to be treated with vancomycin for 3 more days to treat the pneumococcal bacteremia and pneumonia. The patient will stay on nystatin swish and swallow also for another 3 days to complete treatment on the oral candidiasis. The patient will need to have another immunoglobulin levels drawn in about 6 weeks from now to see if the IgG falls back to a low range or stays stable. COMORBIDITIES: The patient is elderly, she is a diabetic and she has chronic obstructive pulmonary disease and also an immunoglobulin deficiency. cc: Fco Curran MD
--- NOTE | 2019-03-30 15:57 | DISCHARGE SUMMARY ---
ADMISSION DATE: 03/16/2019 DISCHARGE DATE: 03/30/2019 LENGTH OF STAY: Fourteen days. DISCHARGE DIAGNOSES: 1. Acute respiratory failure secondary to pneumonia. 2. Right lower lobe pneumonia. 3. Streptococcal pneumonia bacteremia. 4. Diabetes mellitus type 2. 5. Hypertension. 6. Hyperlipidemia. 7. Chronic obstructive pulmonary disease. CONSULTATIONS: 1. Dr. Fco Curran from Infectious Disease. 2. Dr. Calix from Pulmonary. 3. Dr. Spencer Cardenas from Cardiology. PROCEDURES: 1. Chest x-ray done on admission showed large rounded infiltrate or opacity in the right lower lobe. 2. Renal ultrasound showed grossly unremarkable renal ultrasound. 3. Chest CT showed right lower lobe pneumonia. Hilar mediastinal adenopathy. 4. Echocardiogram with limited views showed ejection fraction was 60% with global hypokinesis and severe septal hypokinesis. Mild right ventricular enlargement with reduced right ventricular systolic function. 5. CT of abdomen and pelvis and chest showed persistent right lower lobe pneumonia. HOSPITAL COURSE: In brief, this is a 68-year-old female who presented to the emergency department complaining of right-sided mild back pain, cough, and she was diagnosed with the following diagnoses. 1. Right lower lobe pneumonia. Patient was admitted on broad-spectrum antibiotics until we found out that this patient had a streptococcal bacteremia. Then, this patient was placed on Levaquin also added Zyvox. The patient was not improving, so we consulted Dr. Fco Curran from Infectious Disease who placed this patient on vancomycin. Because her persistent white cell count was not improving we decided to do a CT of abdomen and pelvis and thorax with results as above. We continued with vancomycin. White cell count finally started getting better. At the time of my dictation, the patient's white cell count is back to normal. We will leave the decision to add more antibiotics to Dr. Fco Curran, because this patient has been in the hospital 14 days receiving antibiotics. 2. Diabetes mellitus type 2. We kept this patient on sliding scale insulin. Accu-Chek before meals and also at bedtime. 3. For hypertension, we have continued basically with home medications. Blood pressure has been under control. At some point this patient had been on intensive care unit because of her blood pressure but she never received vasopressors. 4. Acute systolic congestive heart failure. The patient developed an exacerbation of this congestive heart failure. The patient has been on Lasix 60 mg IV q. 12 hours. We will continue with that upon discharge, but oral 80 mg p.o. daily. 5. Chronic obstructive pulmonary disease. The patient has been receiving DuoNeb every four hours as needed. DISCHARGE PHYSICAL EXAMINATION: Vital Signs: Temperature 97.9 degrees, heart rate 74, respiratory rate 20, blood pressure 102/48, O2 saturation 96% on 3 L nasal cannula. General: This is a chronically ill appearing 68-year-old, obese, female lying in bed in no acute distress. Cardiovascular: S1, S2 heard. No murmurs, gallops, or rubs. Regular rate and rhythm. Respiratory: Clear bilaterally to auscultation. No work of breathing or using accessory muscles. Abdomen: Soft, nontender to palpation. Bowel sounds present. No organomegaly. Extremities: No clubbing, cyanosis, or edema. Peripheral pulses present in both legs. Neurological: The patient alert and oriented x3. Moves four extremities. DISCHARGE DISPOSITION: Patient is going to rehab facility. TIME DISCHARGING THIS PATIENT: Forty minutes. LIST OF MEDICATIONS: 1. Brovana one inhalation twice daily. 2. Coreg 12.5 mg one tablet p.o. b.i.d. 3. Losartan 50 mg one tablet p.o. b.i.d. 4. Lasix 80 mg one tablet p.o. daily. 5. Lisinopril 20 mg one tablet p.o. daily. 6. Celexa 20 mg one tablet p.o. daily. 7. Rosuvastatin 20 mg one tablet p.o. daily. 8. Sitagliptin 100 mg one tablet p.o. daily. 9. Combivent one puff by inhalation every six hours as needed. 10. Mirabegron 50 mg one tablet p.o. daily. 11. Bupropion XL 150 mg one tablet p.o. daily. 12. Ferrous sulfate one tablet p.o. daily. 13. Metformin one tablet p.o. b.i.d. 14. Doxepin 200 mg one tablet p.o. daily. 15. Cyanocobalamin 500 mg one tablet p.o. daily. 16. Montelukast 10 mg one tablet p.o. daily. 17. Tresiba 200 units subcutaneous daily. cc: Eduardo Fuentes MD
[2019-03-30] MEDS: CLINIMIX E 4.25%-5% SOLUTION 1,000 ML IV SCH (16:15)
[2019-03-30] MEDS: VANCOMYCIN 1,350 MG in NS 250 ML IV SCH (17:23)
[2019-03-30] MEDS: LOVENOX SUBQ SCH (22:10)
[2019-03-31] MEDS: LOPRESSOR IV SCH ×2 (00:33→05:39)
[2019-03-31] MEDS: DUONEB (A & A) INH SCH ×4 (03:31→11:45)
[2019-03-31 06:46] LABS: BASO# 0.02 X1000 (0.0-0.2); BASO% 0.2 % (0.0-0.8); EOS# 0.09 X1000 (0.0-0.7); EOS% 0.9 % (0.0-10.0); HEMATOCRIT 35.5 % (37.0-47.0); HEMOGLOBIN 10.7 g/dL (12.0-16.0); LYMPH# 1.54 X1000 (1.2-3.4); LYMPH% 15.6 % (20.5-51.1); MCH 25.1 PG (27-31); MCHC 30.1 g/dL (33-37); MCV 83.1 FL (81-99); MONO# 0.97 X1000 (0.11-0.59); MONO% 9.8 % (1.7-9.3); MPV 11.3 FL (7.4-10.4); NEUT# 7.23 X1000 (1.4-6.5); NEUT% 73.5 % (42.2-75.2); PLT 243 X1000 (130-400); RBC 4.27 XMIL (4.2-5.4); RDW 16.7 % (11.5-14.5); WBC 9.85 X1000 (4.8-10.8)
[2019-03-31] MEDS: HUMALOG SUBQ SCH ×2 (07:03→11:30)
--- NOTE | 2019-03-31 07:03 | Diag Imaging Result Doc PS360 ---
EXAM: CHEST-1 VIEW 03/31/2019 HISTORY: SOB TECHNIQUE: AP portable at 0540 COMMENT: There continues to be partial opacification of the lingula and parahilar portions of the right lower and middle lobes. The latter have improved somewhat since the previous study of 03/27/2019. IMPRESSION: Slightly improved pneumonia on the right. Electronically signed by Miller De Oliveira 03/31/2019 7:01 AM
[2019-03-31 07:11] LABS: AGAP 9; ALB/GLOB RATIO 0.8; ALBUMIN 2.8 g/dL (3.5-5.0); ALKALINE PHOSPHATASE 149 U/L (32-104); BUN 41 mg/dL (8-22); CALCIUM 9.4 mg/dL (8.8-10.2); CHLORIDE 95 mmol/L (98-107); COSMO 287; CREATININE 0.9 mg/dL (0.5-0.9); ESTIMATED GFR > 60; GLUCOSE 189 mg/dL (70-104); GOT 79 U/L (10-30); GPT 129 U/L (10-36); SODIUM 136 mmol/L (136-145); TCO2 32 mmol/L (25-35); TOTAL BILIRUBIN 0.34 mg/dL (0.20-1.00); TOTAL PROTEIN 6.3 g/dL (6.3-8.3)
[2019-03-31] MEDS: MUCOMYST 20% INH SCH (07:50)
[2019-03-31] MEDS: BROVANA NEB INH SCH (07:50)
[2019-03-31] MEDS: PEPCID IV SCH (09:21)
[2019-03-31] MEDS: COREG PO SCH (09:21)
[2019-03-31] MEDS: MYCOSTATIN SUSP PO SCH (09:21)
[2019-03-31] MEDS: SODIUM CHLORIDE 0.9% INJ SCH (09:21)
[2019-03-31] MEDS: MIRALAX PO SCH (09:22)
[2019-03-31] MEDS: CELEXA PO SCH (09:22)
[2019-03-31] MEDS: COZAAR PO SCH (09:22)
[2019-03-31] MEDS: LASIX IV SCH (09:24)
[2019-03-31] MEDS: TRESIBA FLEXTOUCH U-200 SUBQ SCH (09:28)
[2019-03-31 12:11] VITALS: BP 113/56
--- NOTE | 2019-03-31 18:06 | PROGRESS NOTE ---
DATE: 03/31/2019 The patient has been discharged already due to acute respiratory failure secondary to pneumonia, Streptococcal pneumoniae bacteremia, diabetes, hypertension, dyslipidemia, and COPD. Dr. Fam already did the discharge summary yesterday and placed the order for discharge yesterday as well, by the patient's pain the night in the hospital. When I went to the room, she was already gone, so I did not see or examine this patient today. cc: Kali Wasserman MD
== END 2019-03-31 12:58 | DRG 871 ==
LOC: ED 18:19 → 3N 21:55 → SUATTDRO 21:55 → ICU 03-17 08:02 → 2N 03-26 17:38 → 4N 03-28 17:50
PROVIDERS: ATTEND Internal Medicine